=== PATIENT | female | born 1955 | race Caucasian/White ===

== ENCOUNTER 2022-11-02 16:00 | Outpatient (REF) | payer MEDICARE, OTHER, SELFPAY ==
[2022-11-02 19:59] LABS: ALT 33 U/L (14-59); AST 28 U/L (15-37); Alkaline Phosphatase 65 U/L (46-116); Anion Gap 6.2 mmol/L (3-11); BUN 17 mg/dL (7-18); Bilirubin, Total 0.7 mg/dL (0.2-1.0); CO2 29.8 mmol/L (21.0-32.0); Calcium 9.3 mg/dL (8.5-10.1); Chloride 106 mmol/L (98-107); Estimated GFR 61.75 (mL/min/1.73m2); Glucose 91 mg/dL (74-106); Potassium 4.1 mmol/L (3.5-5.1); Sodium 142 mmol/L (136-145); Total Protein 7.4 g/dL (6.4-8.2)
== END 2022-11-02 16:01 | disposition home or self-care (01) ==
LOC: NCHCN 16:00
PROVIDERS: Visit Provider Nurse Practitioner Family
DX: I48.91 Unspecified atrial fibrillation (principal)
CPT/HCPCS: 80053

== ENCOUNTER 2023-10-28 15:12 | Outpatient (REF) | payer MEDICARE, OTHER, SELFPAY ==
[2023-10-28 19:37] LABS: Vitamin D 25 Total 76.8 ng/mL (30-100)
== END 2023-10-28 15:13 | disposition home or self-care (01) ==
LOC: NCHCN 15:12
PROVIDERS: Visit Provider Physician Assistant
DX: E55.9 Vitamin D deficiency, unspecified (principal)
CPT/HCPCS: 82306

== ENCOUNTER → 2024-01-20 09:38 | Outpatient (BNVA) | payer MEDICARE, OTHER, SELFPAY | PROVIDERS: PCP Physician Assistant; Referring Provider Physician Assistant; Visit Provider Student in an Organized Health Care Education/Training Program | DX: M17.11 Unilateral primary osteoarthritis, right knee (principal) | CPT/HCPCS: 99203 ==

== ENCOUNTER 2024-04-26 10:55 | Outpatient (REF) | payer MEDICARE, OTHER, SELFPAY ==
--- OUTSIDE RECORDS SUMMARY | 2024-04-26 11:13 | XMS_ITS ---
Author Organization Unknown ALLERGIES AND ADVERSE REACTIONS No information ASSESSMENT No information CHIEF COMPLAINT No information MEDICATIONS No information OBJECTIVE DATA No information PHYSICAL EXAMINATION No information TREATMENT PLAN Planned Care Start Date Provider Encounter for Check-up [id number] PROBLEMS No information RESULTS No information REVIEW OF SYSTEMS No information SUBJECTIVE DATA No information VITAL SIGNS No information
--- OUTSIDE RECORDS SUMMARY | 2024-04-26 11:13 | XMS_ITS | Continuity of Care Document ---
Author Organization [facility] Address [address] [place] [address] Care Team Providers Care Podiatric Aide Name Role Phone Haley Leyva Primary Care Physician Encounter [facility]_[place] Date(s): 12/29/22 - 12/29/[address] [address] Discharge Disposition: Home or Self Care Attending Physician: Haley Leyva PENCILLER Admitting Physician: Haley Leyva PENCILLER Referring Physician: Haley Leyva PENCILLER Assessment and Plan Future Appointments Medications Eliquis 5 mg oral tablet 5 mg = 1 tab, Oral, BID, # 90 tab, 11 Refill(s), [facility]acy: [facility] Start Date: 09/04/22 Status: Ordered Eliquis 5 mg oral tablet 5 mg = 1 tab, Oral, BID, # 60 tab, 11 Refill(s), Pharmacy: [facility] Start Date: 09/03/22 Status: Ordered metoprolol succinate 50 mg oral capsule, extended release 50 mg = 1 cap, Oral, BID, # 60 cap, 11 Refill(s), Pharmacy: [id number] Start Date: 09/03/22 Status: Ordered metoprolol succinate 50 mg oral tablet, extended release 50 mg = 1 tab, Oral, BID, # 180 tab, 11 Refill(s), Pharmacy: [facility] ) Start Date: 09/04/22 Status: Ordered Problem List Condition Confirmation Course Effective Dates Status H ealth Status Informant Hallux valgus, acquired Confirmed Active Fibrillation, atrial Confirmed Active Atrial septal defect Confirmed Active Chronic ulcer of ankle, left, limited to breakdown of skin Confirmed Active Endometriosis Confirmed Active Osteoarthritis Confirmed Active Osteopenia Confirmed Active Tachycardia, paroxysmal Confirmed Active Screening for breast cancer Confirmed Active Screening for colon cancer Confirmed Active 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 Sex Female Patient Care team information Care Team Personnel Name: Sinshara Haley H PENCILLER Position: PowerChart View Only Member Role: Primary Care Physician Address: Address: [address] [place] [id number] [place] [address]
--- OUTSIDE RECORDS SUMMARY | 2024-04-26 11:13 | XMS_ITS | Continuity of Care Document ---
Author Organization [facility] Address [address] [place] [address] Care Team Providers Care Removable Prosthodontist Name Role Phone Haley Leyva Primary Care Physician [phone] Encounter [facility]CT[facility]_[place] Date(s): 01/05/24 - 01/05/[address] [address] Discharge Disposition: Home or Self Care Attending Physician: Tarsha Tay APRN Admitting Physician: Tarsha Tay APRN Referring Physician: Tarsha Tay APRN Allergies, Adverse Reactions, Alerts Substance Criticality Severity Reaction Reaction Severity Status morphine High criticality Moderate Abdominal pain Active Medications Eliquis 5 mg oral tablet 5 mg = 1 tab, Oral, BID, # 90 tab, 11 Refill(s), Pharmacy: [facility], 172.72, cm, 08/13/23 12:44:00 EDT, Height, 69.55, kg, 08/13/23 12:52:00 EDT, Weight Dosing Start Date: 09/08/23 Status: Ordered metoprolol succinate 50 mg oral tablet, extended release 50 mg = 1 tab, Oral, BID, # 180 tab, 11 Refill(s), Pharmacy: [facility], 172.72, cm, 08/13/23 12:44:00 EDT, Height, 69.55, kg, 08/13/23 12:52:00 EDT, Weight Dosing Start Date: 4/24/24 Status: Ordered Problem List Condition Confirmation Course [...] Confirmed Active Vitamin D deficiency Confirmed Active Procedures Procedure Date Related Diagnosis Body Site Status Colonoscopy 1 02/28/23 Completed Cholecystectomy 12/21/16 Completed Atrial septation operation 09/17/76 Completed Arthroscopic chondroplasty o f knee joint Completed Cardiac catheterization C ompleted Cataract surgery Complete d Colonoscopy Completed Endometrial ablation Comp leted Ganglionectomy of tendon she ath of wrist Completed Tonsillectomy Completed Varicose vein stripping C ompleted 89 yr cb Social History Social History Type Response Tobacco Never tobacco user T obacco Use:. Sex Female Sex Representation Female (finding) Pulmonary function study * Event Display: Pulmonary Function Studies Please click on link to view image. * Liz Mendoza MD: PERFORM Event Display: Pulmonary Function Studies Authored Date: Good patient effort 2020 ATS/ERS interpretation guidelines used Spirometry: Shows no evidence of obstructive airways disease, no bronchodilator testing was carriedout Lung volumes: Not measured Diffusion capacity: Normal Airways resistance: Not measured Impression: No evidence of obstructive airways disease. Cannot comment on underlying restriction without lung volume measurements/plethysmography. Therefore clinical correlation recommended Electronically Signed on 01/05/2024 17:02 EDT Liz Mendoza MD Patient Care team information Care Team Personnel Name: Haley Leyva ASSISTANT TO THE CEO Position: PowerChart View Only Member Role: Informed Provider Address: [address] [place] [address] Care Team Related Persons Name: SASKIA GUSTAFSON Name: ISABEL GUSTAFSON Insurance Providers Guarantor name: NI Health Plan Information #: 2 Payer: MICHAEL RODRIGUEZ Member Number: [id number] Policy Number: NA Health Plan Information #: 1 Payer: [employer] MEDICARE REPLACEMENTADVANTAGE HMO Member Number: [id number] Policy Number: NA
--- OUTSIDE RECORDS SUMMARY | 2024-04-26 11:13 | XMS_ITS | Continuity of Care Document ---
Author Organization [facility] Address [address] [place] [address] Encounter NCTY_[place] Date(s): 08/11/22 - 08/11/22 [facility] [address] [place] [address] us
--- OUTSIDE RECORDS SUMMARY | 2024-04-26 11:13 | XMS_ITS | Continuity of Care Document ---
Author Organization [facility] Address [address] [place] [address] Care Team Providers Care Molded Goods Controls Operator Name Role Phone Haley Leyva Primary Care Physician [phone] Encounter NCTY_[place] Date(s): 05/03/23 - 05/03/23 [facility] [address] [place] [address] [place] Encounter Diagnosis Atrial fibrillation(Discharge Diagnosis) - 05/03/23 Discharge Disposition: Home or Self Care Attending Physician: Bernabe Spencer MD Allergies, Adverse Reactions, Alerts Substance Reaction Severity Status morphine Abdominal pain Moderate Active Assessment and Plan Future Appointments Medications Eliquis 5 mg oral tablet 5 mg = 1 tab, Oral, BID, # 90 tab, 11 Refill(s), Pharmacy: [facility] ) Start Date: 09/04/22 Status: Ordered Eliquis 5 mg oral tablet 5 mg = 1 tab, Oral, BID, # 60 tab, 11 Refill(s), Pharmacy: [id number] Start Date: 09/03/22 Status: Ordered flecainide 100 mg oral tablet 100 mg = 1 tab, Oral, every 12 hr, # 180 tab, 4 Refill(s), Pharmacy: [facility], 172.72, cm, 04/07/23 10:23:00 EST, Height, 66.25, kg, 04/07/23 10:29:00 EST, Weight Dosing Start Date: 04/07/23 Status: Ordered metoprolol succinate 50 mg oral capsule, extended release 50 mg = 1 cap, Oral, BID, # 60 cap, 11 Refill(s), Pharmacy: [facility] Start Date: 09/03/22 Status: Ordered metoprolol succinate 50 mg oral tablet, extended release 50 mg = 1 tab, Oral, BID, # 180 tab, 11 Refill(s), Pharmacy: [facility] ([facility] ) Start Date: 09/04/22 Status: [...] vein stripping C ompleted 110 yr cb Vital Signs Most recent to oldest [Reference Range]: 1 Peripheral Pulse Rate [60-100 bpm] 93 bp m (05/03/23 2:20 PM) Blood Pressure [90-140/60-90 mmHg] 133/7 0mmHg (05/03/23 2:20 PM) Mean Arterial Pressure, Cuff [70-110 mmH g] 91 mmHg (05/03/23 2:20 PM) Weight 65.85 kg (05/03/23 2:20 PM) Weight Measured (lbs) 145.174 lb (05/03/23 2:20 PM) Weight Dosing 65.850 kg (05/03/23 2:20 PM) Height 172.72 cm (05/03/23 2:20 PM) Height/Length Measured (inches) 68 inch (05/03/23 2:20 PM) BSA Measured 1.78 m2 (05/03/23 2:20 PM) Body Mass Index 22.07 kg/m2 (05/03/23 2:20 PM) Social History Social History Type Response Tobacco Never tobacco user T obacco Use:. Sex Female Patient Care team information Care Team Personnel Name: Haley Leyva RIVER CROSSING SUPERVISOR Position: PowerChart View Only Member Role: Informed Provider Address: Address: [address] [place] [phone]- Care Team Related Persons Name: SASKIA GUSTAFSON Address: Home [address] [facility] [phone] Name: ISABEL GUSTAFSON
--- OUTSIDE RECORDS SUMMARY | 2024-04-26 11:13 | XMS_ITS | Continuity of Care Document ---
Author Organization [facility] Address [address] [place] [address] Care Team Providers Care Insolvency Practitioner Name Role Phone Haley Leyva Primary Care Physician [phone] Encounter [facility]_[place] Date(s): 11/27/22 - 11/27/[address] [address] Discharge Disposition: Home or Self Care Attending Physician: Haley Leyva DOUGHNUT MACHINE OPERATOR Admitting Physician: Haley Leyva DOUGHNUT MACHINE OPERATOR Referring Physician: Haley Leyva DOUGHNUT MACHINE OPERATOR Assessment and Plan Future Appointments Medications Eliquis 5 mg oral tablet 5 mg = 1 tab, Oral, BID, # 90 tab, 11 Refill(s), [facility] Start Date: 09/04/22 Status: Ordered Eliquis 5 mg oral tablet 5 mg = 1 tab, Oral, BID, # 60 tab, 11 Refill(s), [facility] Start Date: 09/03/22 Status: Ordered metoprolol succinate 50 mg oral capsule, extended release 50 mg = 1 cap, Oral, BID, # 60 cap, 11 Refill(s), [facility] Start Date: 09/03/22 Status: Ordered metoprolol succinate 50 mg oral tablet, extended release 50 mg = 1 tab, Oral, BID, # 180 tab, 11 Refill(s), Pharm[facility]: [facility] Start Date: 09/04/22 Status: Ordered Social History Social History Type Response Tobacco Never tobacco user T obacco Use:. Sex Female Patient Care team information Care Team Personnel Name: Chute, Haley H DOUGHNUT MACHINE OPERATOR Position: PowerChart View Only Member Role: Primary Care Physician Address: Address: [address] [place] [address] [place]
--- OUTSIDE RECORDS SUMMARY | 2024-04-26 11:13 | XMS_ITS | Continuity of Care Document ---
Author Organization [facility] Address [address] [place] [address] Care Team Providers Care Music Arranger Name Role Phone Haley Leyva Primary Care Physician Encounter NCTY_[place] Date(s): 05/20/23 - 05/20/23 [facility] [address] [place] [address] [place] Encounter Diagnosis Tachycardia(Discharge Diagnosis) - 05/20/23 Atrial fibrillation(Discharge Diagnosis) - 05/20/23 Discharge Disposition: Home or Self Care Attending Physician: Bernabe Spencer MD Allergies, Adverse Reactions, Alerts Substance Reaction Severity Status morphine Abdominal pain Moderate Active Assessment and Plan Future Appointments Medications Eliquis 5 mg oral tablet 5 mg = 1 tab, Oral, BID, # 90 tab, 11 Refill(s), [facility]: [facility] ) Start Date: 09/04/22 Status: Ordered Eliquis 5 mg oral tablet 5 mg = 1 tab, Oral, BID, # 60 tab, 11 Refill(s), Pharmacy: [facility] Start Date: 09/03/22 Status: Ordered flecainide 100 [...] BID, # 60 cap, 11 Refill(s), Pharmacy: [facility] Start Date: 09/03/22 Status: Ordered metoprolol succinate 50 mg oral tablet, extended release 50 mg = 1 tab, Oral, BID, # 180 tab, 11 Refill(s), [facility]: [facility] ([facility] ) Start Date: 09/04/22 Status: [...] Range]: 1 Peripheral Pulse Rate [60-100 bpm] 77 bp m (05/20/23 1:44 PM) Blood Pressure [90-140/60-90 mmHg] 134/6 4mmHg (05/20/23 1:44 PM) Mean Arterial Pressure, Cuff [70-110 mmH g] 87 mmHg (05/20/23 1:44 PM) Weight 66.40 kg (05/20/23 1:44 PM) Weight Measured (lbs) 146.387 lb (05/20/23 1:44 PM) Weight Dosing 66.400 kg (05/20/23 1:44 PM) Height 172.72 cm (05/20/23 1:44 PM) Height/Length Measured (inches) 68 inch (05/20/23 1:44 PM) BSA Measured 1.78 m2 (05/20/23 1:44 PM) Body Mass Index 22.26 kg/m2 (05/20/23 1:44 PM) Social History Social History Type Response Tobacco Never tobacco user T obacco Use:. Sex Female Physician Outpatient Note * Bernabe Spencer MD: PERFORM Event Display: Office Clinic Note Physician Authored Date: [id number] ALLIE GUSTAFSON :1955 Age:67 years Sex:Female Visit Date:05/20/2023 Primary Care Physician: Haley Leyva NP History of Present Illness Cardiac Problems: 1. Paroxysmal A-Fib 2. Mild to moderate mitral regurgitation on echocardiogram 2021 3. Edema 4. SOB 5. Status post??ASD repair in 1974 6.??Status post repair of??varicose veins ?? This is a 67 year old woman who I last saw in March 2023, as her AF was becoming more persistent. She is on flecainide, and she underwent cardioversion on 05/04/23. ?? She has noted no change in symptoms, and it turns out she is back in atrial fibrillation. ??Rate iswell-controlled. ??She has no chest pain, orthopnea, PND, palpitations, syncope, dyspnea exertion, or lower extremity edema. ?? Our next step is either to try a different antiarrhythmic (I think your sotalol would be a good choice),??or to talk about ablation.?? I reviewed with her that science continues to accumulate that ablation??should be considered earlier rather than later in the decision-making process, so I am goingto go ahead and make a referral to [facility].?? Were also having a significant amount of difficultyarranging for??inpatient visits for antiarrhythmics, so if she does need sotalol, it would be very likely to be done more quickly at [facility] than it would here. ?? She has never been to [facility] before.?? She understands that a number of visits may be involved.?? There does seem to be a significant advantage??for us to be pushing for sinus rhythm rather than leaving people in A-fib,??even with good rate control. ??This is a change in philosophy over the past 10 years or so as evidence has accumulated. Review of Systems A complete review of systems is negative other than as noted in the history of present illness. Physical Exam Vitals & Measurements HR:??77??(Peripheral)?? BP:??134/64?? SpO2:??97%?? HT:??172.72??cm?? WT:??66.40??kg?? BMI:??22.26?? BSA:??1.78?? HEENT: Normocephalic, atraumatic Respirations: Clear to auscultation bilaterally with no wheezes rubs or rhonchi Cardiac: Irregularly irregular, normal S1, S2, no murmurs gallops or rubs Abdomen: Nontender nondistended normal active bowel sounds Extremities: 2+ dorsalis pedis pulses bilaterally with no significant edema Medical Decision Making Data Reviewed: EK09/03/22. Atrial fibrillation...V-rate?? 56- 90, irreg A-activity. Probable anteroseptal infarct, old...Q >30mS & abn ST-T, V1-V2 Echo: 11/27/21. LVEF 59%, AFib throughout the study with controlled ventricular rates. Severe LA enlargement. Mid to moderate mitral regurgitation. Mild tricuspid regurgitation. Stress: 03/2020. LVEF 64%. PVCs and ventricular couplets noted during infusion. Small sized, mild intensity, reversible perfusion defect involving the apical inferior wall. Low risk study basted on defect size and normal LV function.?? Cardio Note: 11/2021:??When she saw Dr. Pineda last, she reported she was feeling overall, well. Rare palpitations. She noted sometimes of fatigue and SOB, but when she is walking or doing heavy work. At that visit, she requested to go back on Eliquis. Also, at that visit an EKG was done and it showed she was in AFib rate of 75bpm. He discussed with her the possibility proceeding with a cardioversion or staying in AFib. Since she is feeling well and has been in AFib paroxysmal in the past, they deferred cardioversion, assuming that she will continue to go in and out of rhythm. He ordered anecho, and if results are stable, he recommended to follow up in 1 year. Stress Echo: 02/23/23. ??She exercised for 7 minutes and 10 seconds, achieving 107% of maximal addicted heart rate of 176 bpm with 10.1 METS. ??There were no significant EKG changes,??and the??associated cardiogram was reassuring; normal stress echo. ??EF of 65% with normal wall motion. Diastolic indices are technically indeterminate. Left atrium is severely dilated. Right atrium is mildly dilated. Moderate MR. Moderate TR. PAP est 27 mmHg. EK04/07/2023: Atrial fibrillation with ventricular rate 79 bpm. ??Axes and intervals within normal limits. ??No evidence of ischemia or prior infarct. 05/04/2023: Electrical cardioversion: Successful hindu of sinus rhythm after??cardioversion x2. EKG: May 20, 2023:??Atrial fibrillation with ventricular rate 70 bpm. ??Axes and intervals within normal limits. ??There is slightly delayed R wave progression. ??No other evidence of ischemia or prior infarct. ?? 67-year-old woman??with paroxysmal A-fib, which has recurred on flecainide after cardioversion. ?? Atrial fibrillation:??This is not particularly??symptomatic, which gives us a lot of options.?? I did review with her??that the evidence is getting more and more clear that hindu of sinus rhythm, particularly with??ablation,??has the best long-term outcomes, so I am referring her to [facility] this point.?? If an additional antiarrhythmic trial is recommended, she might be better off having that done in [place], as we have had difficulty arranging for these??admissions here in [place]. ?? She should remain on??Eliquis. ??I also left her on flecainide. ??I am checking??a 14-day Zio patchto see if she is spending any time in sinus rhythm on the flecainide; if not,??we can simply stop that while she awaits an electrophysiology evaluation. ?? It is always a genuine pleasure to see Allie. ??I am glad to see that she is doing well.?? I will bring her back here in 3 months, which I suspect will be after??she has been seen by [facility]. ??She knows to call me??if she is not contacted by [facility] in the next few weeks. Clinic Assessment/Plan Atrial fibrillation??I48.91 Actions: FUTURE - EVENT MONITORING PHYSICIAN, 05/20/23, Other, Please Specify, 14 days, Order for future visit, Tachycardia Atrial fibrillation COMPLETED - Follow-Up Appointment Request N[facility], 05/20/23 14:00:00 EST, In [facility], 05/20/23 14:00:00 EST FUTURE - Follow-Up Appointment Request NCTY, *Est. 08/19/23 +/- 21 days, Future Order, In [facility] COMPLETED - Referral Management, Medical Service: Cardiology, Reason: EP for consideration ofablation (pulm vein isolation) vs tikosyn, Start: 05/20/23 ?? Tachycardia??R00.0 Actions: COMPLETED - [id number] Office/Outpatient Visit - Established Patient, Level 4 (30-39 min)., 05/20/23 13:41:00 EST, Tachycardia COMPLETED - CV ECG Clinic, 05/20/23 13:44:00 EST, Routine, Reason: Other (please specify), Stop date and time 05/20/23 13:44:00 EST, Tachycardia, ORD_SET_REQ_DT_RANGE, Iza's Internal Person Id FUTURE - EVENT MONITORING PHYSICIAN, 05/20/23, Other, Please Specify, 14 days, Order for future visit, Tachycardia Atrial fibrillation FUTURE - Follow-Up Appointment Request NCTY, *Est. 08/19/23 +/- 21 days, Future Order, In [facility] COMPLETED - Referral Management, Medical Service: Cardiology, Reason: EP for consideration ofablation (pulm vein isolation) vs tikosyn, Start: 05/20/23 ?? 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 Vitamin D deficiency Historical No qualifying data Procedure/Surgical History ???Colonoscopy (03/01/2023)???Cholecystectomy (12/22/2016)???Atrial septation operation (09/18/1976)???Arthroscopic chondroplasty of knee joint???Cardiac catheterization???Cataract surgery???Colonoscopy???Endometrial ablation???Ganglionectomy of tendon sheath of wrist???Tonsillectomy???Varicose vein stripping Medications What How Much When Why Instructions Unchanged apixaban (Eliquis 5 mg oral tablet) 1 tab Oral (given by mouth) 2 times a day Unchanged apixaban (Eliquis 5 mg oral tablet) 1 tab Oral (given by mouth) 2 times a day Unchanged flecainide (flecainide 100 mg oral tablet) 1 tab Oral (given by mouth) Every 12 hours Atrial fibrillation Unchanged metoprolol (metoprolol succinate 50 mg oral capsule, extended release) 1 Capsules Oral (given by mouth) 2 times a day Unchanged metoprolol (metoprolol succinate 50 mg oral tablet, extended release) 1 tab Oral (given by mouth) 2 times a day Allergies morphine??(Abdominal pain) Social History Alcohol Never Electronic Cigarette/Vaping Electronic Cigarette Use: Never. Substance Use Never Tobacco Never tobacco user Tobacco Use:. Family History Stroke: Father. Electronically Signed on 05/20/23 02:16 PM Bernabe Spencer MD Patient Care team information Care Team Personnel Name: Haley Leyva METHODS EXAMINER Position: PowerChart View Only Member Role: Informed Provider Address: Address: [address] [place] [id number] [place] Care Team Related Persons Name: SASKIA GUSTAFSON Address: Home [address] [facility] [phone] Name: ISABEL GUSTAFSON
--- OUTSIDE RECORDS SUMMARY | 2024-04-26 11:13 | XMS_ITS | Continuity of Care Document ---
Author Organization [facility] Address [address] [place] [address] Care Team Providers Care Electro Mechanic Name Role Phone Haley Leyva Primary Care Physician [phone] Encounter [facility] [id number] Date(s): 12/21/23 - 12/21/[address] [address] Discharge Disposition: Home or Self Care Attending Physician: Nidia Blanco PA-C Admitting Physician: Nidia Blanco PA-C Referring Physician: Nidia Blanco PA-C Allergies, Adverse Reactions, Alerts Substance Reaction Severity Status morphine Abdominal pain Moderate Active Medications Eliquis 5 mg oral tablet [...] Weight Dosing Start Date: 09/08/23 Status: Ordered Problem List Condition Confirmation Course [...] information Care Team Personnel Name: Haley Leyva CLIENT TECHNOLOGIES SPECIALIST Position: PowerChart View Only Member Role: Informed Provider Address: Address: [address] [place] [address] Care Team Related Persons Name: SASKIA GUSTAFSON Address: Home [address] [facility] [phone] Name: ISABEL GUSTAFSON
--- OUTSIDE RECORDS SUMMARY | 2024-04-26 11:13 | XMS_ITS | Continuity of Care Document ---
Author Organization [facility] Address [address] [place] [address] Care Team Providers Care Basting Puller Name Role Phone Haley Leyva Primary Care Physician Encounter [facility] Date(s): 10/28/23 - 10/28/23 [facility] [address] [place] [address] Discharge Disposition: Home or Self Care Attending Physician: Haley Leyva WAFER MOUNTER Admitting Physician: Haley Leyva WAFER MOUNTER Referring Physician: Haley Leyva WAFER MOUNTER Allergies, Adverse Reactions, Alerts Substance Reaction Severity [...] information Care Team Personnel Name: Haley Leyva WAFER MOUNTER Position: PowerChart View Only Member Role: Informed Provider Address: Address: [address] [place] [id number] [place] Care Team Related Persons Name: SASKIA GUSTAFSON Address: Home [address] [place] [address] [facility] [id number] Name: ISABEL GUSTAFSON Address: Home
--- OUTSIDE RECORDS SUMMARY | 2024-04-26 11:13 | XMS_ITS | Continuity of Care Document ---
Author Organization [facility] Address [address] [place] [address] Care Team Providers Care Doctor Of Dental Medicine Name Role Phone Haley Leyva Primary Care Physician Encounter [facility] [id number] Date(s): 11/01/23 - 11/01/23 [facility] [address] [place] [address] Discharge Disposition: Home Allergies, Adverse Reactions, Alerts Substance Reaction Severity [...] information Care Team Personnel Name: Haley Leyva MOTTLER OPERATOR Position: PowerChart View Only Member Role: Informed Provider Address: Address: [address] [place] [address]- Care Team Related Persons Name: SASKIA GUSTAFSON Address: Home [address] [facility] [phone] Name: ISABEL GUSTAFSON
--- OUTSIDE RECORDS SUMMARY | 2024-04-26 11:13 | XMS_ITS | Continuity of Care Document ---
Author Organization [facility] Address [address] [place] [address] Care Team Providers Care Radio Installer Automobile Name Role Phone Haley Leyva Primary Care Physician [phone] Encounter [facility] Date(s): 12/28/22 - 12/28/22 [facility] [address] [place] [address] [place] Encounter Diagnosis Afib(Discharge Diagnosis) - 12/28/22 Discharge Disposition: Home or Self Care Attending Physician: Bernabe Spencer MD Assessment and Plan Future Appointments Medications Eliquis 5 mg oral tablet 5 mg = 1 tab, Oral, BID, # 90 tab, 11 Refill(s), Pharmacy: [facility] ) Start Date: 09/04/22 Status: Ordered Eliquis 5 mg oral tablet 5 mg = 1 tab, Oral, BID, # 60 tab, 11 Refill(s), [id number] Start Date: 09/03/22 Status: Ordered metoprolol succinate 50 mg oral capsule, extended release 50 mg = 1 cap, Oral, BID, # 60 cap, 11 Refill(s), Pharmacy: [id number] Start Date: 09/03/22 Status: Ordered metoprolol succinate 50 mg oral tablet, extended release 50 mg = 1 tab, Oral, BID, # 180 tab, 11 Refill(s), Pharmacy: [facility] ) Start Date: 09/04/22 Status: [...] Confirmed Active Vitamin D deficiency Confirmed Active Vital Signs Most recent to oldest [Reference Range]: 1 Peripheral Pulse Rate [60-100 bpm] 76 bp m (12/28/22 8:45 AM) Blood Pressure [90-140/60-90 mmHg] 122/7 5mmHg (12/28/22 8:45 AM) Weight 64.15 kg (12/28/22 8:45 AM) Weight Measured (lbs) 141.426 lb (12/28/22 8:45 AM) Social History Social History Type Response Tobacco Never tobacco user T obacco Use:. Sex Female Physician Outpatient Note * Bernabe Spencer MD: PERFORM Event Display: Office Clinic Note Physician Authored Date: [id number] JANAYALLIE :1955 Age:67 years Sex:Female Visit Date:12/28/2022 Primary Care Physician: Haley Leyva NP History of Present Illness Cardiac Problems: 1. Paroxysmal A-Fib 2. Mild to moderate mitral regurgitation on echocardiogram 2021 3. Edema 4. SOB 5. Status post??ASD repair in 1974 6.??Status post repair of??varicose veins ?? Is a 67-year-old woman??last saw Dr. Vázquez here??a few months ago. ??She has a history of an ASDrepair; her mitral regurgitation has been followed, as well as her paroxysmal atrial fibrillation. ?? She was following with a Dr. 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 She now lives near family. ?? A cardioversion was planned last year but ended up being unnecessary as she converted back to sinus.?? My guess at this point is that she spending more more time in A-fib. ??She is finding that she is fatigued and gets more dyspneic, which??used to be only intermittent, but now seems more regular.?? She gives me the example walking [id number] to her mailbox (which is about 100 m away)??and she will be huffing and puffing. ??She does not need to stop, but this is a change since last year.?? There is no chest pain, there is no syncope, there is no lower extremity edema.?? Occasionally she feels fluttering, maybe once??every month or 2, but for the most part is not feeling palpitations on m etoprolol. ?? Is quite active around the house but is not getting exercise beyond that. ?? Her last echo was reassuring about a year ago, her last stress test was largely reassuring about3 years ago with a small inferior apical defect??that was not felt to be clinically relevant. Review of Systems A complete review of systems is negative other than as noted in the history of present illness. Physical Exam Vitals & Measurements HR:??76??(Peripheral)?? BP:??122/75?? SpO2:??98%?? WT:??64.15??kg?? HEENT: Normocephalic, atraumatic Respirations: Clear to auscultation [...] function.?? Cardio Note: 11/2021:??When she saw Dr. Edwin campos, she reported she was feeling overall, well. Rare palpitations. She noted sometimes of fatigue and SOB, but when she is walking or doing heavy work. At that visit, she requested to go back on [employer]. Also, at that visit an EKG was [...] recommended to follow up in 1 year. EK12/28/2022: Atrial fibrillation with ventricular rate 60 bpm. ??Axes intervals within normal limits. ??There is delayed R wave progression, diffuse T wave flattening, and perhaps??some ST depressions in the lateral leads. ?? 67-year-old woman with??atrial fibrillation ?? Atrial fibrillation:??This has been paroxysmal, and she did convert??spontaneously prior to her last cardioversion,??but based on her description of??more chronic symptoms, I suspect she is moving towards a persistent atrial fibrillation,??if not there already.?? I reviewed with her that??our understanding of A-fib has changed significantly since the??AFFIRM trial. ??Initially we felt that rate control was adequate,??but we are now learning that rhythm control??earlier than later,??is absolutely to the advantage??of patients in terms of??quality of life, and perhaps even mortality. ?? I would love to get her on flecainide, but her last stress test was a bit??indeterminate a few years ago. ??Her echo was reassuring a year ago,??but I would like to repeat a stress test.?? She did not like??the chemical stress??but is agreeable to a treadmill and we will arrange that for her.?? We will arrange this as a stress echo??given the baseline EKG abnormalities with??particularly ST??depressions in the lateral leads at her baseline. ?? We will get back together in a couple of months??to review that stress test to make a plan going forward. ??I would hope for that to include??flecainide, but that would depend on the results of her stress test. ?? No other changes at this point. ??She is appropriately anticoagulated on Eliquis. ??It was a genuine pleasure to meet Allie. Clinic Assessment/Plan Afib??I48.91 Actions: COMPLETED - 56416 Office/Outpatient Visit - Established Patient, Level 4 (30-39 min)., 12/28/22 8:38:00 EDT, Afib COMPLETED - CV ECG Clinic, 12/28/22 8:42:00 EDT, Routine, Reason: Other (please specify), Stop dateand time 12/28/22 8:42:00 EDT, Afib, ORD_SET_REQ_DT_RANGE, Felanell's Internal Person Id FUTURE - Echocardiogram Stress, 12/28/22, Order for future visit, Afib CARMONA (dyspnea on exertion) FUTURE - Follow-Up Appointment Request [facility], *Est. 02/22/23 +/- 14 days, Future Order, In Approximately, [facility] ?? 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 Tobacco Never tobacco user Tobacco Use:. Family History Stroke: Father. Electronically Signed on 12/28/22 09:38 AM Bernabe Spencer MD Patient Care team information Care Team Personnel Name: Haley Leyva SYSTEMS LEAD Position: PowerChart View Only Member Role: Primary Care Physician Address: Address: [address] [place] [address]
--- OUTSIDE RECORDS SUMMARY | 2024-04-26 11:13 | XMS_ITS | Continuity of Care Document ---
Author Organization [facility] Address [address] [place] [address] Care Team Providers Care Oil And Gas Specialist Name Role Phone Haley Leyva Primary Care Physician [phone] Encounter [facility] Date(s): 04/30/23 - 04/30/[address] [address] Discharge Disposition: Home or Self Care Attending Physician: Nidia Blanco PA-C Admitting Physician: Nidia Blanco PA-C Referring Physician: Nidia Blanco PA-C Allergies, Adverse Reactions, Alerts Substance Reaction Severity Status morphine Abdominal pain Moderate Active Assessment and Plan Future Appointments Medications Eliquis 5 mg oral tablet 5 mg = 1 tab, Oral, BID, # 90 tab, 11 Refill(s), Pharmacy: [facility] ) Start Date: 09/04/22 Status: Ordered Eliquis 5 mg oral tablet 5 mg = 1 tab, Oral, BID, # 60 tab, 11 Refill(s), Pharmacy: [id number] Start Date: 09/03/22 Status: Ordered [...] BID, # 60 cap, 11 Refill(s), Pharmacy: [id number] Start Date: 09/03/22 Status: Ordered metoprolol succinate 50 mg oral tablet, extended release 50 mg = 1 tab, Oral, BID, # 180 tab, 11 Refill(s), [facility] Start Date: 09/04/22 Status: [...] vein stripping C ompleted 110 yr cb Results Laboratory List Name Date Comprehensive Metabolic Panel 04/30/23 Hemoglobin A1c 04/30/23 Lipid Panel 04/30/23 Most recent to oldest [Reference Range]: 1 BUN [7-18 mg/dL] 17 mg/dL (04/30/23 7:40 AM) Cholesterol Total [50-200 mg/dL] 172 mg/ dL (04/30/23 7:40 AM) LDL [0-130 mg/dL] 96 mg/dL (04/30/23 7:40 AM) Glucose Level [74-106 mg/dL] 98 mg/dL (04/30/23 7:40 AM) Potassium Level [3.5-5.1 mmol/L] 4.2 mmo l/L (04/30/23 7:40 AM) HDL [40-60 mg/dL] 69 mg/dL *HI* (04/30/23 7:40 AM) AST [15-37 unit/L] 31 unit/L (04/30/23 7:40 AM) ALT [14-59 unit/L] 50 unit/L (04/30/23 7:40 AM) Sodium Level [136-145 mmol/L] 140 mmol/L (04/30/23 7:40 AM) Triglycerides [0-150 mg/dL] 36 mg/dL (04/30/23 7:40 AM) Calcium Level [8.5-10.1 mg/dL] 9.0 mg/dL (04/30/23 7:40 AM) Albumin Level [3.4-5.0 g/dL] 3.4 g/dL (04/30/23 7:40 AM) Protein Total [6.4-8.2 g/dL] 6.7 g/dL (04/30/23 7:40 AM) Bilirubin Total [0.2-1.0 mg/dL] 1.0 mg/d L (04/30/23 7:40 AM) Alk Phos [46-146 unit/L] 62 unit/L (04/30/23 7:40 AM) CO2 [21-32 mmol/L] 33 mmol/L *HI* (04/30/23 7:40 AM) eGFR Non-AA [>=60] 65 (04/30/23 7:40 AM) eGFR AA [>=60] 65 (04/30/23 7:40 AM) Hemoglobin A1c [4.0-6.0 %] 5.4 % (04/30/23 7:40 AM) Chloride Level [98-107 mmol/L] 103 mmol/ L (04/30/23 7:40 AM) Creatinine Level [0.55-1.02 mg/dL] 0.95 mg/dL (04/30/23 7:40 AM) Social History Social History Type Response Tobacco Never tobacco user T obacco Use:. Sex Female Patient Care team information Care Team Personnel Name: Haley Leyva CUSTOM SKI MAKER Position: PowerChart View Only Member Role: Informed Provider Address: Address: [address] [place] [address]- Care Team Related Persons Name: SASKIA GUSTAFSON Address: Home [address] [facility] [id number] Name: ISABEL GUSTAFSON
--- OUTSIDE RECORDS SUMMARY | 2024-04-26 11:13 | XMS_ITS | Continuity of Care Document ---
Author Organization [facility] Address [address] [place] [address] Care Team Providers Care Air Intelligence Officer Name Role Phone Haley Leyva Primary Care Physician [phone] Encounter [facility] Date(s): 12/28/22 - 12/28/22 [facility] [address] [place] [address] Discharge Disposition: Home Assessment and Plan Future Appointments Medications Eliquis 5 mg oral tablet 5 mg = 1 tab, Oral, BID, # 90 tab, 11 Refill(s), Pharmacy: [facility] ) Start Date: 09/04/22 Status: Ordered Eliquis 5 mg oral tablet 5 mg = 1 tab, Oral, BID, # 60 tab, 11 Refill(s), Pharmacy: [id number] Start Date: 09/03/22 Status: Ordered metoprolol succinate 50 mg oral capsule, extended release 50 mg = 1 cap, Oral, BID, # 60 cap, 11 Refill(s), Pharmacy: [id number] Start Date: 09/03/22 Status: Ordered metoprolol succinate 50 mg oral tablet, extended release 50 mg = 1 tab, Oral, BID, # 180 tab, 11 Refill(s), Pharmacy: [facility] Start Date: 09/04/22 Status: [...] information Care Team Personnel Name: Haley Leyva PET WALKER Position: PowerChart View Only Member Role: Primary Care Physician Address: Address: [address] [place] [id number] [place]
--- OUTSIDE RECORDS SUMMARY | 2024-04-26 11:13 | XMS_ITS | Continuity of Care Document ---
Author Organization [facility] Address [address] [place] [address] Care Team Providers Care Lease Operator Name Role Phone Haley Leyva Primary Care Physician Encounter [facility] Date(s): 08/13/23 - 08/13/23 [facility] [address] [place] [address] [place] Encounter Diagnosis Atrial septal defect(Discharge Diagnosis) - 08/11/23 Paroxysmal A-fib(Discharge Diagnosis) - 08/13/23 Shortness of breath(Discharge Diagnosis) - 08/13/23 Discharge Disposition: Home or Self Care Attending Physician: Bernabe Spencer MD Allergies, Adverse Reactions, Alerts Substance Reaction Severity Status morphine Abdominal pain Moderate Active Assessment and Plan Extracted from: Title:Cardiology Office Visit Author:St juan f Spencer MD Date:08/13/23 Atrial septal defect??Q21.10 Actions: COMPLETED - CV ECG Clinic, 08/13/23 12:43:00 EDT, Routine, Reason: Other (please specify), Stop date and time 08/13/23 12:43:00 EDT, Atrial septal defect Paroxysmal A-fib Shortness of breath, ORD_SET_REQ_DT_RANGE, Felaner's Internal Person Id ?? Paroxysmal A-fib??I48.0 Actions: COMPLETED - 39766 Office/Outpatient Visit - Established Patient, Level 3 (20-29 min)., 08/13/23 12:39:00 EDT, Paroxysmal A-fib COMPLETED - CV ECG Clinic, 08/13/23 12:43:00 EDT, Routine, Reason: Other (please specify), Stop date and time 08/13/23 12:43:00 EDT, Atrial septal defect Paroxysmal A-fib Shortness of breath, ORD_SET_REQ_DT_RANGE, Cerner's Internal Person Id FUTURE - Follow-Up Appointment Request RICKEY, *Est. 11/13/23 +/- 21 days, Future Order, In [facility], [facility] COMPLETED - Referral Management, Medical Service: Cardiology, Reason: Please re-refer to EP for consideration of pulm vein isolation for AF - they never contacted her 3 months ago with initial referral., Start: 08/13/23 ?? Shortness of breath??R06.02 Actions: COMPLETED - CV ECG Clinic, 08/13/23 12:43:00 EDT, Routine, Reason: Other (please specify), Stop date and time 08/13/23 12:43:00 EDT, Atrial septal defect Paroxysmal A-fib Shortness of breath, ORD_SET_REQ_DT_RANGE, Iza's Internal Person Id ?? Additional Actions: DISCONTINUED - flecainide, 100 mg = 1 tab, Oral, every 12 hr, # 180 tab, 4 Refill(s), Pharmacy: [facility], 172.72, cm, 04/07/23 10:23:00 EST, Height, 66.25, kg, 04/07/23 10:29:00 EST, Weight Dosing COMPLETED - Follow-Up Appointment Request RICKEY, 08/13/23 13:00:00 EDT, In [facility], [facility], 08/13/23 13:00:00 EDT Medications Eliquis 5 mg oral tablet 5 mg = 1 tab, Oral, BID, # 90 tab, 11 Refill(s), Pharmacy: [facility] ([facility] ) Start Date: 09/04/22 Status: Ordered Eliquis 5 mg oral tablet 5 mg = 1 tab, Oral, BID, # 60 tab, 11 Refill(s), Pharmacy: [id number] Start Date: 09/03/22 Status: Ordered metoprolol succinate 50 mg oral capsule, extended release 50 mg = 1 cap, Oral, BID, # 60 cap, 11 Refill(s), Pharmacy: [id number] Start Date: 09/03/22 Status: Ordered metoprolol succinate 50 mg oral tablet, extended release 50 mg = 1 tab, Oral, BID, # 180 tab, 11 Refill(s), Pharmacy: [facility] ([facility] ) Start Date: 09/04/22 Status: [...] Range]: 1 Peripheral Pulse Rate [60-100 bpm] 108 b pm *HI* (08/13/23 12:44 PM) Blood Pressure [90-140/60-90 mmHg] 137/7 8mmHg (08/13/23 12:44 PM) Mean Arterial Pressure, Cuff [65-140 mmH g] 98 mmHg (08/13/23 12:44 PM) Weight 69.55 kg (08/13/23 12:44 PM) Weight Measured (lbs) 153.331 lb (08/13/23 12:44 PM) Weight Dosing 69.550 kg (08/13/23 12:44 PM) Height 172.72 cm (08/13/23 12:44 PM) Height/Length Measured (inches) 68 inch (08/13/23 12:44 PM) BSA Measured 1.83 m2 (08/13/23 12:44 PM) Body Mass Index 23.31 kg/m2 (08/13/23 12:44 PM) Social History Social History Type Response Tobacco Never tobacco user T obacco Use:. Sex Female Physician Outpatient Note * Bernabe Spencer MD: PERFORM Event Display: Office Clinic Note Physician Authored Date: [id number] ALLIE GUSTAFSON :1955 Age:67 years Sex:Female Visit Date:08/13/2023 Primary Care Physician: Haley Leyva NP History of Present Illness Cardiac Problems: 1. Paroxysmal A-Fib 2. Mild to moderate mitral regurgitation on echocardiogram 2021 3. Edema 4. SOB 5. Status post??ASD repair in 1974 6.??Status post repair of??varicose veins ?? This is a 67 year old woman who I last saw on 05/20/23. She had no change in her symptoms but it was noted that she was back in atrial fibrillation at that visit. I referred her to see EP to discuss other options in regards to her atrial fibrillation.?? I had asked her to call if she was not contacted by [facility] within a week or 2; it sounds like they never called her,??but we were not??notified of this. ?? A Zio patch in the interim showed continuous A-fib over 14 days.?? I am re- referring to [facility].?? She remains largely asymptomatic; there is no chest pain, orthopnea, PND, palpitations, syncope, dyspnea exertion, or lower extremity edema.?? She is looking forward to being able to walk outside once the ground firms up a little bit. Review of Systems A complete review of systems is negative other than as noted in the history of present illness. Physical Exam Vitals & Measurements HR:??108??(Peripheral)?? BP:??137/78?? SpO2:??98%?? HT:??172.72??cm?? WT:??69.55??kg?? BMI:??23.31?? BSA:??1.83?? HEENT: Normocephalic, atraumatic Respirations: Clear to auscultation bilaterally with no wheezes rubs or rhonchi Cardiac: Regular rate and rhythm normal S1, S2, no murmurs gallops or [...] or prior infarct. 05/04/2023: Electrical cardioversion: Successful church of sinus rhythm after??cardioversion x2. EKG: May 20, 2023:??Atrial fibrillation with ventricular rate 70 bpm. ??Axes and intervals within normal limits. ??There is slightly delayed R wave progression. ??No other evidence of ischemia or prior infarct. Zio: 05/24/23. 14 days. Continious AF with rare PVCs over a 13 day period. Rate ranged from 61 to 120bpm. The QRS eidened at faster heart rates, a common finding consistent with rate related bundle. ?? EK08/13/2023: Atrial fibrillation with ventricular rate 88 bpm. ??Axes and intervals are within normal limits.?? No evidence of ischemia or prior infarct. ?? 67-year-old woman withatrial fibrillation. ?? Atrial fibrillation:??She is minimally symptomatic. ??She did have sinus rhythm after cardioversion??but even with flecainide we were unable to maintain that.?? We talked about the benefits of??restoring sinus rhythm;??the next step would be either to consider??admission for an antiarrhythmic such as sotalol or Tikosyn ,or pulmonary vein isolation (atrial fibrillation ablation).?? Either of these options would need to be performed at [facility]; should we will hopefully be evaluated by electrophysiology soon??to get her moving in one direction or the other. ?? We made a referral to [facility] 3 months ago, and she is here to follow that up;??she has never been contacted by [facility], so we will rerefer, and once again bring her back here in 3 months. ?? No other changes at this point. ??I am stopping flecainide; she can complete the current prescription that she just filled, but there is no need to refill that.??I have asked her once again to call me if she does not hear from [facility] in the near future. ?? Shee understands that when she comes back she will be with a different blanket winder helper. ??It has been a genuine pleasure working with??Allie. Clinic Assessment/Plan Atrial septal defect??Q21.10 Actions: COMPLETED - CV ECG Clinic, 08/13/23 12:43:00 EDT, Routine, Reason: Other (please specify), Stop date and time 08/13/23 12:43:00 EDT, Atrial septal defect Paroxysmal A-fib Shortness of breath, ORD_SET_REQ_DT_RANGE, Iza's Internal Person Id ?? Paroxysmal A-fib??I48.0 Actions: COMPLETED - 90299 Office/Outpatient Visit - Established Patient, Level 3 (20-29 min)., 08/13/23 12:39:00 EDT, Paroxysmal A-fib COMPLETED - CV ECG Clinic, 08/13/23 12:43:00 EDT, Routine, Reason: Other (please specify), Stop date and time 08/13/23 12:43:00 EDT, Atrial septal defect Paroxysmal A-fib Shortness of breath, ORD_SET_REQ_DT_RANGE, Cerner's Internal Person Id FUTURE - Follow-Up Appointment Request RICKEY, *Est. 11/13/23 +/- 21 days, Future Order, In [facility], [facility] COMPLETED - Referral Management, Medical Service: Cardiology, Reason: Please re-refer to EP for consideration of pulm vein isolation for AF - they never contacted her 3 months ago with initial referral., Start: 08/13/23 ?? Shortness of breath??R06.02 Actions: COMPLETED - CV ECG Clinic, 08/13/23 12:43:00 EDT, Routine, Reason: Other (please specify), Stop date and time 08/13/23 12:43:00 EDT, Atrial septal defect Paroxysmal A-fib Shortness of breath, ORD_SET_REQ_DT_RANGE, Cerner's Internal Person Id ?? Additional Actions: DISCONTINUED - flecainide, 100 mg = 1 tab, Oral, every 12 hr, # 180 tab, 4 Refill(s), Pharmacy: [facility], 172.72, cm, 04/07/23 10:23:00 EST, Height, 66.25, kg, 04/07/23 10:29:00 EST, Weight Dosing COMPLETED - Follow-Up Appointment Request RICKEY, 08/13/23 13:00:00 EDT, In Approximately, [facility], 08/13/23 13:00:00 EDT Problem List/Past Medical History Ongoing Atrial septal [...] vein stripping Medications What How Much When Instructions Unchanged [...] (given by mouth) 2 times a day ?? What How Much When Why Comments Stop Taking flecainide (flecainide 100 mg oral tablet) 1 tab Oral (given by mouth) Every 12 hours Atrial fibrillation Allergies morphine??(Abdominal pain) Social History Alcohol Never Electronic Cigarette/Vaping Electronic Cigarette Use: Never. Substance Use Never Tobacco Never tobacco user Tobacco Use:. Family History Stroke: Father. Electronically Signed on 08/13/23 01:21 PM Bernabe Spencer MD Patient Care team information Care Team Personnel Name: Haley Leyva SEED CORN MANAGER PRODUCTION Position: PowerChart View Only Member Role: Informed Provider Address: Address: [address] [place] [id number] [place] [address] Care Team Related Persons Name: SASKIA GUSTAFSON Address: Home [address] [facility] [facility] [phone] Name: ISABEL GUSTAFSON
--- OUTSIDE RECORDS SUMMARY | 2024-04-26 11:13 | XMS_ITS | Continuity of Care Document ---
Author Organization [facility] Address [address] [place] [address] Care Team Providers Care Fundraising Sale Representative Name Role Phone Haley Leyva Primary Care Physician Encounter [facility] [id number] Date(s): 05/04/23 - 05/04/23 [facility] [address] [place] [address] Encounter Diagnosis Paroxysmal atrial fibrillation(Final) - Atrial septal defect, unspecified(Final) - Discharge Disposition: Home or Self Care Attending Physician: Bernabe Spencer MD Admitting Physician: Bernabe Spencer MD Referring Physician: Beranbe Spencer MD Allergies, Adverse Reactions, Alerts Substance Reaction Severity Status morphine Abdominal pain Moderate Active Assessment and Plan Future Appointments Functional Status 05/04/23 Family Member Travel History No recent t ravel Recent Travel History No recent travel Other exposure to Infectious Disease Non e Medications Eliquis 5 mg oral tablet 5 mg = 1 tab, Oral, BID, # 90 tab, 11 Refill(s), [facility]acy: [facility] ([facility] ) Start Date: 09/04/22 Status: Ordered Eliquis 5 mg oral tablet 5 mg = 1 tab, Oral, BID, # 60 tab, 11 Refill(s), Pharmacy: [id number] Start Date: 09/03/22 Status: Ordered flecainide 100 [...] BID, # 60 cap, 11 Refill(s), Pharmacy: [id number] Start Date: 09/03/22 Status: Ordered metoprolol succinate 50 mg oral tablet, extended release 50 mg = 1 tab, Oral, BID, # 180 tab, 11 Refill(s), [facility]acy: [facility] ([facility] ) Start Date: 09/04/22 Status: [...] Most recent to oldest [Reference Range]: 1 2 3 Temperature Temporal Artery [36-38 Deg C] 36.1 Deg C (05/04/23 1:04 PM) 35.8 Deg C *LOW* (05/04/23 1:04 PM) 36.0 Deg C (05/04/23 12:30 PM) Temperature Temporal Artery (DegF) [97.3-100 Deg F] 96.98 Deg F *LOW* (05/04/23 1:04 PM) 96.44 Deg F *LOW* (05/04/23 1:04 PM) 96.98 Deg F *LOW* (05/04/23 12:17 PM) Peripheral Pulse Rate [60-100 bpm] 48 bpm *LOW* (05/04/23 1:04 PM) 47 bpm *LOW* (05/04/23 1:04 PM) 50 bpm *LOW* (05/04/23 1:00 PM) Heart Rate Monitored [60-100 bpm] 46 bpm *LOW* (05/04/23 1:04 PM) 49 bpm *LOW* (05/04/23 1:04 PM) 48 bpm *LOW* (05/04/23 1:00 PM) Respiratory Rate [12-24 br/min] 13 br/min (05/04/23 1:04 PM) 13 br/min (05/04/23 1:04 PM) 15 br/min (05/04/23 1:00 PM) Blood Pressure [90-140/60-90 mmHg] 108/75mmHg (05/04/23 1:04 PM) 108/75mmHg (05/04/23 1:04 PM) 110/65mmHg (05/04/23 1:00 PM) Mean Arterial Pressure, Cuff [70-110 mmHg] 86 mmHg (05/04/23 1:04 PM) 86 mmHg (05/04/23 1:04 PM) 80 mmHg (05/04/23 1:00 PM) Mean Arterial Pressure Cuff 89 mmHg (05/04/23 10:47 AM) Blood Pressure Invasive [90-140/60-90 mmHg] 94/66mmHg (05/04/23 12:17 PM) 121/77mmHg (05/04/23 11:49 AM) Mean Arterial Pressure, Invasive [65-140 mmHg] 75 mmHg (05/04/23 12:17 PM) 75 mmHg (05/04/23 12:13 PM) Blood Pressure Location Right arm (05/04/23 10:47 AM) Social History Social History Type Response Tobacco Never tobacco user T obacco Use:. Sex Female Hospital Discharge Instructions Patient Education 04/13/2023 09:45:39 Pre Electrical Cardioversion Patient Instructions (NCCLAMPRON) Pre Electrical Cardioversion Instructions Electrical cardioversion is the delivery of a jolt of electricity to restore a normal rhythm to theheart. A rhythm that is too fast or is not regular keeps the heart from pumping well. In this procedure, sticky patches or metal paddles are placed on the chest to deliver electricity to the heart from a device. Tell a health care provider about: ? Any allergies you have. ? All medicines you are taking, including vitamins, herbs, eye drops, creams, and ezru-bmp-byskrlz medicines. ? Any problems you or family members have had with anesthetic medicines. ? Any medical conditions you have. ? Whether you are or may be . What are the risks? Generally, this is a safe procedure. However, problems may occur, including: ? Allergic reactions to medicines. ? A blood clot that breaks free and travels to other parts of your body. ? The possible return of an abnormal heart rhythm within hours or days after the procedure. ? Your heart stopping (cardiac arrest). This is rare. Prior to the procedure: ? Follow instructions from your health care provider about eating or drinking restrictions. ? Plan to have someone take you home from the hospital or clinic. ? If you will be going home right after the procedure, plan to have someone with you for 24 hours. ? Ask your health care provider what steps will be taken to help prevent infection. Thesemay include washing your skin with a germ-killing soap. What can I expect after the procedure? Your blood pressure, heart rate, breathing rate, and blood oxygen level will be monitored until you leave the hospital or clinic. ? Your heart rhythm will be watched to make sure it does not change. ? You may have some redness on the skin where the shocks were given. Follow these instructions at home: ? Do not drive for 24 hours if you were given a sedative during your procedure. ? Take fbhs-afb-pvfejko and prescription medicines only as told by your health care provider. ? Keep all follow-up visits as told by your health care provider. This is important. Get help if: ? You have discomfort in your chest. ? You are dizzy or you feel faint. ? You have trouble breathing or you are short of breath. ? Your speech is slurred. ? You have trouble moving an arm or leg on one side of your body. ? Your fingers or toes turn cold or blue. Summary ? Electrical cardioversion is the delivery of a jolt of electricity to restore a normal rhythm to the heart. ? Generally, this is a safe procedure. This information is not intended to replace advice given to you by your health care provider. Make sure you discuss any questions you have with your health care provider. Document Revised: 12/04/2019 Document Reviewed: 12/04/2019 Elsevier Patient Education ?? 2021 [employer] Discharge instructions * Danitza Rodriguez: PERFORM Event Display: Discharge Instructions Authored Date: [id number] JANAYDEMIAN :1955 Age:67 years Sex:Female Visit Date:05/04/2023 Primary Care Physician: Haley Leyva NP Hospital Discharge Instructions We would like to thank you for allowing us to assist you with your healthcare needs. The following includes patient education materials and information regarding your injury/illness. Your Next Steps Scheduled Future Appointments 2023 2:00 PM EST ?? With: Bernabe Spencer MD Where: [facility] [place] [address] [place] [address] Status: Confirmed Your Summary Your Care Team Admitting Physician - Bernabe Spencer MD Attending Physician - Bernabe Spencer MD Primary Care Physician - Haley Leyva NP Referring Physician - Bernabe Spencer MD Discharge Vitals Temperature??(Temporal Artery) 96.8 ??F (36.0 ??C) Heart Rate??(Peripheral) 51 Heart Rate??(Monitored) 49 Respiratory Rate?? 17 Blood Pressure?? 105/69?? Blood Pressure?? 94/66(Line)?? Blood Pressure?? 133/71(Sitting)?? Education Materials Pre Electrical Cardioversion Instructions Electrical cardioversion is the delivery of a jolt of electricity to restore a normal rhythm to theheart. A rhythm that is too fast or is not regular keeps the heart from pumping well. In this procedure, sticky patches or metal paddles are placed on the chest to deliver electricity to the heart from a device. ? Tell a health care provider about: ? Any allergies you have. ? All medicines you are taking, including vitamins, herbs, eye drops, creams, and ewqm-npy-mauwayh medicines. ? Any problems you or family members have had with anesthetic medicines. ? Any medical conditions you have. ? Whether you are or may be . What are the risks? Generally, this is a safe procedure. However, problems may occur, including: ? Allergic reactions to medicines. ? A blood clot that breaks free and travels to other parts of your body. ? The possible return of an abnormal heart rhythm within hours or days after the procedure. ? Your heart stopping (cardiac arrest). This is rare. Prior to the procedure: ? Follow instructions from your health care provider about eating or drinking restrictions. ? Plan to have someone take you home from the hospital or clinic. ? If you will be going home right after the procedure, plan to have someone with you for 24 hours. ? Ask your health care provider what steps will be taken to help prevent infection. Thesemay include washing your skin with a germ-killing soap. ? What can I expect after the procedure? Your blood pressure, heart rate, breathing rate, and blood oxygen level will be monitored until you leave the hospital or clinic. ? Your heart rhythm will be watched to make sure it does not change. ? You may have some redness on the skin where the shocks were given. Follow these instructions at home: ? Do not drive for 24 hours if you were given a sedative during your procedure. ? Take mmkk-tge-mdwrmqs and prescription medicines only as told by your health care provider. ? Keep all follow-up visits as told by your health care provider. This is important. Get help if: ? You have discomfort in your chest. ? You are dizzy or you feel faint. ? You have trouble breathing or you are short of breath. ? Your speech is slurred. ? You have trouble moving an arm or leg on one side of your body. ? Your fingers or toes turn cold or blue. Summary ? Electrical cardioversion is the delivery of a jolt of electricity to restore a normal rhythm to the heart. ? Generally, this is a safe procedure. This information is not intended to replace advice given to you by your health care provider. Make sure you discuss any questions you have with your health care provider. Document Revised: 12/04/2019 Document Reviewed: 12/04/2019 [employer] Patient Education ?? 2021 [employer]. Patient/Restaurant Associate Signature Patient Name:DEMIAN GUSTAFSON Shukri I have received this information and my questions have been answered. Patient/Restaurant Associate Name: Patient/Restaurant Associate Signature: Relationship to Patient: Witness Name/Signature: Date: Electronically Signed on: 05/04/2023 12:50 ESTSigned by:PAF History and physical note * Sri Escobar: PERFORM Event Display: History and Physical Authored Date: [id number] DEMIAN GUSTAFSON :1955 Age:67 years Sex:Female Primary Care Physician: Haley Leyva STAFF THERAPIST * Final Report * DEMIAN GUSTAFSON :?1955 Age:??67 years Sex:??Female Visit Date:??04/07/2023 Primary Care Physician: ??Haley Leyva NP History of Present Illness ?? Cardiac Problems: 1. Paroxysmal A-Fib 2. Mild to moderate mitral regurgitation on echocardiogram 2021 3. Edema 4. SOB 5. Status post??ASD repair in 1974 6.??Status post repair of??varicose veins ?? This is a 67 year old woman who I last saw in clinic back in December. She has paroxysmal atrial fibrillation, but based on her symptoms she reported to me at her visit, I suspected that she is moving towards a persistent atrial fibrillation. I arranged for her to complete?? a stress echo we can start her on flecainide.?? She is here today to discuss results which were reassuring. ??She has a normal echo and normal stress echo at this point. ?? She continues to feel well;??there is no chest pain, orthopnea, PND, palpitations, syncope, dyspneaon??exertion,??or lower extremity edema (she does note some mild lower extremity edema which she has had for years which is unchanged). ?? She is not exercising much; she??chases around her 3-year-old grandson and has 2 dogs??and cats that she is??working with and is up and down the stairs at her house regularly??but she is limited in her ability to walk by??foot pain. ?? We talked about the??CAST trial??in generic terms. ??She is an excellent candidate for flecainide. ??Will arrange for cardioversion and we will check an EKG the day before??scheduled cardioversion. Review of Systems ?? A complete review of systems is negative other than as noted in the history of present illness. Physical Exam ?Vitals & Measurements ?HR:??81??(Peripheral)?? BP:??127/61?? SpO2:??97%?HT:??172.72??cm?? WT:??66.25??kg?? BMI:??22.21?? BSA:??1.78? HEENT: Normocephalic, atraumatic Respirations: Clear to auscultation bilaterally with no wheezes rubs or rhonchi Cardiac:??Regular rate and rhythm??normal S1, S2, no murmurs gallops or rubs Abdomen: Nontender nondistended normal active bowel sounds Extremities: 2+ dorsalis pedis pulses bilaterally with no significant edema Medical Decision Making ?? Data Reviewed: EK09/03/22. Atrial fibrillation...V-rate?? 56- 90, [...] ??No evidence of ischemia or prior infarct. ?? 67-year-old woman with atrial fibrillation. ?? Atrial fibrillation:??She has paroxysmal disease but??it has??become??much more??persistent at thatpoint.?? She did convert??prior to her last cardioversion spontaneously, but that seems less and less likely at this point. ??I am starting flecainide based on her normal stress test and normal echoca rdiogram. ??We did discuss the CAST trial in general terms.?? Rate is well- controlled, she is asymptomatic, she is appropriately anticoagulated. No other changes at this point. ?? I will plan to see her back here couple of weeks after the cardioversion we can make a plan going forward at that point.?? No other changes currently. ??It??is always a genuine??pleasure to see Demian, and I am glad to see she is doing well. Clinic Assessment/Plan Atrial fibrillation??I48.91 ?Actions: ORDERED - flecainide, 100 mg = 1 tab, Oral, every 12 hr, # 180 tab, 4 Refill(s), Pharmacy: [facility], 172.72, cm, 04/07/23 10:23:00 EST, Height, 66.25, kg, 04/07/23 10:29:00 EST, Weight Dosing COMPLETED - [address] Office/Outpatient Visit - Established Patient, Level 3 (20-29 min)., 04/07/23 10:06:00 EST, Atrial fibrillation COMPLETED - CV ECG Clinic, 04/07/23 10:22:00 EST, Routine, Reason: Other (please specify), Stop date and time 04/07/23 10:22:00 EST, Atrial fibrillation, ORD_SET_REQ_DT_RANGE, Iza's Internal Person Id FUTURE - Follow-Up Appointment Request [facility], *Est. 05/19/23 +/- 7 days, Future Order, In [facility] COMPLETED - Follow-Up Appointment Request [facility], 04/07/23 10:40:00 EST, In [facility], 04/07/23 10:40:00 EST COMPLETED - Referral Management, Medical Service: Cardiology, Reason: Needs cardioversion in 2 or 4 weeks, Start: 04/07/23 ?? 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 Medications ??What How Much When Why Instructions??New flecainide (flecainide 100 mg oral tablet) 1 tab ??Oral (given by mouth) Every 12 hours ?Atrial fibrillation ?? Refills: 4 ?Pickup at [facility] ?Unchanged apixaban (Eliquis 5 mg oral tablet) 1 tab ??Oral (given by mouth) 2 times a day ?Unchanged apixaban (Eliquis 5 mg oral tablet) 1 tab ??Oral (given by mouth) 2 times a day ?Unchanged metoprolol (metoprolol succinate 50 mg oral capsule, extended release) 1 Capsules ??Oral (given by mouth) 2 times a day ?Unchanged metoprolol (metoprolol succinate 50 mg oral tablet, extended release) 1 tab ??Oral (given by mouth) 2 times a day ? Pharmacy Information ?[facility]: [address] [place], [place] [id number] [phone] Allergies morphine??(Abdominal pain) Social History Alcohol ??Never Electronic Cigarette/Vaping ??Electronic Cigarette Use: Never. Tobacco ??Never tobacco user Tobacco Use:. Family History ??Stroke: Father. ? [1] Ambulatory Visit Instructions We would like to thank you for allowing us to assist you with your healthcare needs. The following includes patient education materials and information regarding your injury/illness. Medications What How Much When Why Instructions [...] (given by mouth) 2 times a day Your Summary Problems Ongoing - Any problem that you are currently receiving treatment for. 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 Vitamin D deficiency Your Care Team Admitting Physician - Bernabe Spencer MD Attending Physician - Bernabe Spencer MD Primary Care Physician - Haley Leyva STAFF THERAPIST Allergies morphine??(Abdominal pain) [1]??Cardiology Office Visit; Bernabe Spencer MD 04/07/2023 11:00 EST Electronically Signed on 04/12/23 04:03 PM Sri Escobar Reviewed by: Bernabe Spencer MD Patient Care team information Care Team Personnel Name: Haley Leyva STAFF THERAPIST Position: PowerChart View Only Member Role: Informed Provider Address: Address: [address] [place] [id number] [place] Care Team Related Persons Name: SASKIA GUSTAFSON Address: Home [address] [facility] [address] [id number] Name: ISABEL GUSTAFSON
--- OUTSIDE RECORDS SUMMARY | 2024-04-26 11:13 | XMS_ITS | Continuity of Care Document ---
Author Organization [facility] Address [address] [place] [address] Care Team Providers Care Senior Tax Accountant Name Role Phone Haley Leyva Primary Care Physician [phone] Encounter [facility] Date(s): 05/20/23 - 05/20/23 [facility] [address] [place] [address] Discharge Disposition: Home Allergies, Adverse Reactions, Alerts Substance Reaction Severity Status morphine Abdominal pain Moderate Active Assessment and Plan Future Appointments Medications Eliquis 5 mg oral tablet 5 mg = 1 tab, Oral, BID, # 90 tab, 11 Refill(s), Pharmacy: [facility] Start Date: 09/04/22 Status: Ordered Eliquis 5 mg oral tablet 5 mg = 1 tab, Oral, BID, # 60 tab, 11 Refill(s), Pharmacy: [id number] Start Date: 09/03/22 Status: Ordered flecainide 100 [...] BID, # 60 cap, 11 Refill(s), Pharmacy: [id number] Start Date: 09/03/22 Status: Ordered [...] information Care Team Personnel Name: Haley Leyva CABIN CREW Position: PowerChart View Only Member Role: Informed Provider Address: Address: [address] [place] [address] Care Team Related Persons Name: SASKIA GUSTAFSON Address: Home [address] [facility], [id number] Name: ISABEL GUSTAFSON
--- OUTSIDE RECORDS SUMMARY | 2024-04-26 11:13 | XMS_ITS | Continuity of Care Document ---
Author Organization [facility] Address [address] [place] [address] Care Team Providers Care Drug Abuse Technician Name Role Phone Mainor Anne Primary Care Physician [phone] Encounter [facility] Date(s): 09/03/22 - 09/03/22 [facility] [address] [place] [address] [place] Encounter Diagnosis Paroxysmal A-fib(Discharge Diagnosis) - 09/03/22 Valvular heart disease(Discharge Diagnosis) - 09/03/22 Paroxysmal atrial fibrillation(Final) - Endocarditis, valve unspecified(Final) - Discharge Disposition: Home or Self Care Attending Physician: Tia Vázquez DO Functional Status 09/03/22 Other exposure to Infectious Disease Non e Medications Eliquis 5 mg oral tablet 5 mg = 1 tab, Oral, BID, # 180 tab, 3 Refill(s), Pharmacy: [facility] Start Date: 09/03/22 Status: Ordered Eliquis 5 mg oral tablet 5 mg = 1 tab, Oral, BID, # 60 tab, 11 Refill(s), [facility]acy: [facility] Start Date: 09/03/22 Status: Ordered metoprolol succinate 50 mg oral capsule, extended release 50 mg = 1 cap, Oral, BID, # 60 cap, 11 Refill(s), [id number] Start Date: 09/03/22 Status: Ordered metoprolol succinate 50 mg oral tablet, extended release 50 mg = 1 tab, Oral, BID, # 180 tab, 3 Refill(s), Pharmacy: [facility] Start Date: 09/03/22 Status: Ordered Vital Signs Most recent to oldest [Reference Range]: 1 Weight 65.8 kg (09/03/22 10:26 AM) Weight Measured (lbs) 145.064 lb (09/03/22 10:26 AM) Social History Social History Type Response Tobacco Never tobacco user T obacco Use:. Sex Female Physician Outpatient Note * Tia Vázquez DO: PERFORM, MODIFY Event Display: Office Clinic Note Physician Authored Date: [id number] DEMIAN GUSTAFSON :1955 Age:66 years Sex:Female Visit Date:09/03/2022 Primary Care Physician: Mainor Anne MD Chief Complaint Here to establish care History of Present Illness Patient is just moved here from [place].?? Old records should have been sent but I am not seeing them.?? Patient has a history of a open heart valve surgery of some sort but she says the valves have been monitored with echocardiograms and her last one was about a year ago.?? We?? need the recordsto follow up on this.?? Refilled medicines for patient locally and to??mail order pharmacy as she is worried she will run out soon. ? EKG:?? AFIB rate 72 Review of Systems Constitutional:?No??fevers,?No??chills,?No??sweats Eye:?No??recent visual problems ENT:?No??ear pain,?No??nasal congestion,?No??sore throat Respiratory:?No??shortness of breath,?No??cough Cardiovascular:?No??Chest pain,?No??palpitations,?No??syncope Gastrointestinal:?Nonausea,?No??vomiting,?No??diarrhea Genitourinary:?No??hematuria Mitch/Lymph:?No??bruising tendency,?No??swollen lymph glands Endocrine:?No??excessive thirst,??No??excessive hunger Musculoskeletal:??No??back pain,??No??neck pain,??No??joint pain,??No??muscle pain,??No??decreased range of motion Integumentary:?No??rash,?No??pruritus,?No??abrasions Neurologic: Alert & oriented X 4 Psychiatric:?No??anxiety,?No??depression Physical Exam Vitals & Measurements WT:??65.8??kg?? General: Alert and oriented, well nourished,?No??acute distress Eye: PERRL, EOMI,?Normal?conjunctiva HENT: Normocephalic, clear tympanic membranes,?Normal? hearing, moist oral mucosa,?No??scleral icterus,?No??sinus tenderness Neck: Supple, non-tender,?No??carotid bruits,?No??JVD,?No??lymphadenopathy Lungs:??Clear to auscultation?? Respiration:??Non-Labored Heart:?Normal? rate,?Regular??rhythm,?No??murmur,?No??gallop,?No??edema Breast:?No??lumps,?No??bumps,?No??scars,?Normal? nipples Abdomen: Soft, non-tender, non-distended,?Normal? bowel sounds,?No??masses Musculoskeletal:?Normal? range of motion and strength,?No??tenderness,?No??swelling Skin: Skin is warm, dry and pink,?No??rashes,?No??lesions Neurologic: Awake, alert and oriented X4, CN II-XII intact Psychiatric: Cooperative, appropriate mood and affect Assessment/Plan 1.??Valvular heart disease??I38 1. continue present medicines Ordered: Follow-Up Appointment Request [facility], *Est. 09/04/23 +/- 28 days, Future Order, In [facility] ?? Paroxysmal A-fib??I48.0 1. continue present medicines 2. refilled medicines 3. follow up with cardiology in 1 year or sooner if needed Ordered: CV ECG Clinic, 09/03/22 10:26:00 EDT, Routine, Reason: Other (please specify), Stop date and time 09/03/22 10:26:00 EDT, Paroxysmal A-fib, ORD_SET_REQ_DT_RANGE, Iza's Internal Person Id Follow-Up Appointment Request [facility], *Est. 09/04/23 +/- 28 days, Future Order, In Approximately, [facility] ?? Orders: Eliquis 5 mg oral tablet, 5 mg = 1 tab, Oral, BID, # 60 tab, 11 Refill(s), Pharmacy: [id number] Eliquis 5 mg oral tablet, 5 mg = 1 tab, Oral, BID, # 180 tab, 3 Refill(s), Pharmacy: [facility] metoprolol succinate 50 mg oral capsule, extended release, 50 mg = 1 cap, Oral, BID, # 60 cap, 11 Refill(s), Pharmacy: [facility]156 metoprolol succinate 50 mg oral tablet, extended release, 50 mg = 1 tab, Oral, BID, # 180 tab, 3 Refill(s), Pharmacy: [facility] Problem List/Past Medical History Ongoing No qualifying data Historical No qualifying data Medications Eliquis 5 mg oral tablet, 5 mg= 1 tab, Oral, BID, 3 refills Eliquis 5 mg oral tablet, 5 mg= 1 tab, Oral, BID, 11 refills metoprolol succinate 50 mg oral capsule, extended release, 50 mg= 1 cap, Oral, BID, 11 refills metoprolol succinate 50 mg oral tablet, extended release, 50 mg= 1 tab, Oral, BID, 3 refills Allergies No active allergies Social History Electronic Cigarette/Vaping Electronic Cigarette Use: Never. Tobacco Never tobacco user Tobacco Use:. Family History Stroke: Father. Electronically Signed on 09/03/22 11:23 AM Tia Vázquez DO Electronically Signed on 09/03/22 11:32 AM Tia Vázquez DO Patient Care team information Care Team Personnel Name: Mainor Anne MD Position: Physician Member Role: Primary Care Physician Address: Address: [address] [place] [id number]
--- OUTSIDE RECORDS SUMMARY | 2024-04-26 11:13 | XMS_ITS | Continuity of Care Document ---
Author Organization [facility] Address [address] [place] [address] Care Team Providers Care Medical Science Liaison Name Role Phone Jana Leyvaide Bishop Primary Care Physician [phone] Encounter [facility] Date(s): 04/07/23 - 04/07/23 [facility] [address] [place] [address] Discharge Disposition: Home Allergies, Adverse Reactions, Alerts Substance Reaction Severity Status morphine Abdominal pain Moderate Active Medications Eliquis 5 mg oral tablet 5 mg = 1 tab, Oral, BID, # 90 tab, 11 Refill(s), Pharmacy: [facility] ) Start Date: 09/04/22 Status: Ordered Eliquis 5 mg oral tablet 5 mg = 1 tab, Oral, BID, # 60 tab, 11 Refill(s), Pharmacy: [facility] 4[facility] Start Date: 09/03/22 Status: Ordered flecainide 100 mg oral tablet 100 mg = 1 tab, Oral, every 12 hr, # 180 tab, 4 Refill(s), Pharmacy: [facility], 172.72, cm, 04/07/23 10:23:00 EST, Height, 66.25, kg, 04/07/23 10:29:00 EST, Weight Dosing Start Date: 04/07/23 Status: Ordered metoprolol succinate 50 mg oral capsule, extended release 50 mg = 1 cap, Oral, BID, # 60 cap, 11 Refill(s), Pharmacy: [facility]156 Start Date: 09/03/22 Status: Ordered metoprolol succinate 50 mg oral tablet, extended release 50 mg = 1 tab, Oral, BID, # 180 tab, 11 Refill(s), Pharmacy: [facility] ([facility] ) Start [...] information Care Team Personnel Name: Haley Leyva ELECTRICAL TEST TECHNICIAN Position: PowerChart View Only Member Role: Primary Care Physician Address: Address: [address] [place] [id number] [place] Care Team Related Persons Name: SASKIA GUSTAFSON Address: Home [address] [facility] [address] [id number]
--- OUTSIDE RECORDS SUMMARY | 2024-04-26 11:13 | XMS_ITS | Continuity of Care Document ---
Author Organization [facility] Address [address] [place] [address] Care Team Providers Care Gunstock Repairer Name Role Phone SinJana olmedoide Bishop Primary Care Physician Encounter [facility] Date(s): 03/01/23 - 03/01/[address] [address] [place] Encounter Diagnosis Screening for colon cancer(Discharge Diagnosis) - 03/01/23 Diverticulosis of colon(Discharge Diagnosis) - 03/01/23 Discharge Disposition: Home or Self Care Attending Physician: Adalberto Graham MD Admitting Physician: Adalberto Graham MD Referring Physician: Adalberto Graham MD Allergies, Adverse Reactions, Alerts Substance Reaction Severity Status morphine Abdominal pain Moderate Active Assessment and Plan Future Appointments Functional Status 03/01/23 ADLs Independent 02/23/23 Living Situation Home with family car e Recent Travel History No recent travel Medications Eliquis 5 mg oral tablet 5 mg = 1 tab, Oral, BID, # 90 tab, 11 Refill(s), [facility]acy: [facility] ) Start Date: 09/04/22 Status: Ordered Eliquis 5 mg oral tablet 5 mg = 1 tab, Oral, BID, # 60 tab, 11 Refill(s), Pharmacy: [facility] 30[facility] Start Date: 09/03/22 Status: Ordered metoprolol succinate 50 mg oral capsule, extended release 50 mg = 1 cap, Oral, BID, # 60 cap, 11 Refill(s), Pharmacy: [facility] 4150 Start Date: 09/03/22 Status: Ordered metoprolol succinate 50 mg oral tablet, extended release 50 mg = 1 tab, Oral, BID, # 180 tab, 11 Refill(s), Pharm[facility]: [facility] ([facility] ) Start Date: 09/04/22 Status: [...] Procedure Date Related Diagnosis Body Site Status Cholecystectomy 12/21/16 Completed Atrial septation operation 09/17/76 Completed Arthroscopic chondroplasty of knee joint Completed Cardiac catheterization C ompleted Cataract surgery Complete d Colonoscopy Completed Endometrial ablation Comp leted Ganglionectomy of tendon sheath of wrist Completed Tonsillectomy Completed Varicose vein stripping C ompleted Vital Signs Most recent to oldest [Reference Range]: 1 2 3 Temperature Temporal Artery [36-38 Deg C] 36.3 Deg C (03/01/23 11:58 AM) 36.7 Deg C (03/01/23 10:25 AM) Temperature Temporal Artery (DegF) [97.3-100 Deg F] 97.34 Deg F (03/01/23 11:58 AM) Peripheral Pulse Rate [60-100 bpm] 78 bpm (03/01/23 12:43 PM) 76 bpm (03/01/23 12:28 PM) 78 bpm (03/01/23 12:13 PM) Heart Rate Monitored [60-100 bpm] 81 bpm (03/01/23 12:43 PM) 68 bpm (03/01/23 12:28 PM) 73 bpm (03/01/23 12:13 PM) Respiratory Rate [12-24 br/min] 16 br/min (03/01/23 12:43 PM) 22 br/min (03/01/23 12:28 PM) 11 br/min *LOW* (03/01/23 12:13 PM) Blood Pressure [90-140/60-90 mmHg] 113/78mmHg (03/01/23 12:43 PM) 99/63mmHg (03/01/23 12:28 PM) 103/73mmHg (03/01/23 12:13 PM) Mean Arterial Pressure, Cuff [65-140 mmHg] 90 mmHg (03/01/23 12:43 PM) 75 mmHg (03/01/23 12:28 PM) 83 mmHg (03/01/23 12:13 PM) Weight 63.400 kg (03/01/23 10:25 AM) 66.000 kg (02/23/23 12:19 PM) Weight Dosing 63.400 kg (03/01/23 10:25 AM) 66.000 kg (02/23/23 12:19 PM) Height 172.000 cm (03/01/23 10:25 AM) 173.000 cm (02/23/23 12:19 PM) Height/Length Dosing 172.000 cm (03/01/23 10:25 AM) 173.000 cm (02/23/23 12:19 PM) Body Mass Index 21.430 kg/m2 (03/01/23 10:25 AM) Social History Social History Type Response Tobacco Never tobacco user T obacco Use:. Sex Female Hospital Discharge Instructions Patient Education 03/01/2023 11:25:18 ss colonoscopy discharge instructions (CUSTOM) COLONOSCOPY / SIGMOIDOSCOPY Following day: Return to full activity, including work. Diet: Eat and drink normally, unless instructed otherwise. Treatment for common after affects: Mild abdominal pain, bloating, or excessive gas: Rest, eat lightly and use a heating pad. Symptoms to watch for and report to your physician: SEVERE abdominal pain or bloating. Fever within 24 hours after procedure. A large amount of rectal bleeding. (A small amount of blood from the rectum is not serious, especially if hemorrhoids are present.) If bright red rectal bleeding occurs, call your physician. You have had a Colonoscopy: Do not attempt to drive a vehicle or operate power equipment of any kind for at least 24 hours after discharge from the hospital. Do not consume alcoholic beverages or other mood-altering drugs on the day of surgery. Mild irritation at needle site: Apply warm, moist pack to area for 20 minutes four times a day for 2-3 days. Call physician if persistent redness and/or drainage at needle site. In the event of any problems after surgery, do not hesitate to contact your doctor, [facility] , or the Emergency Room at [phone]. Diagnosis: Diverticulosis Doctor: Gladys Follow Up Appointment: Repeat colonoscopy in 10 years. The office will contact you at that time to schedule an appointment. Follow Up Care 01/22/2023 08:39:11 With:Adalberto Graham MD Address: [address] [address] When: Unknown Comments:Screening??colonoscopy in??10 years. Discharge instructions * Karen Marsh P: PERFORM Event Display: Discharge Instructions Authored Date: [id number] DEMIAN GUSTAFSON :1955 Age:67 years Sex:Female Visit Date:03/01/2023 Primary Care Physician: Haley Leyva INTEGRATED LOGISTICS OPERATIONS MANAGER Hospital Discharge Instructions We would like to thank you for allowing us to assist you with your healthcare needs. The following includes patient education materials and information regarding your injury/illness. Your Next Steps Instructions From Your Care Team Colonoscopy was normal, except for minimal diverticulosis. Bowel prep was excellent. Restart Eliquis tomorrow morning, 03/02/23. Discharge Orders Discharge Patient Instructions, Rest today. Resume diet and activities as tolerated. Scheduled Future Appointments Wednesday 1:00 PM EST ?? With: Bernabe Spencer MD Where: [facility] [address] [place] [address] Status: Confirmed Follow Up Appointments Follow Up with??Adalberto Graham MD Why: Screening??colonoscopy in??10 years. Where: [address] [id number]- Medications What How Much When Instructions Next Dose Unchanged apixaban (Eliquis 5 mg oral tablet) [...] mouth) 2 times a day Your Summary Your Care Team Admitting Physician - Adalberto Graham MD Attending Physician - Adalberto Graham MD Primary Care Physician - Haley Leyva NP Referring Physician - Adalberto Graham MD Your Diagnosis Screening for colon cancer Diverticulosis of colon Problems Ongoing - Any problem that you are currently receiving treatment for. 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 ?Ganglionectomy of tendon sheath of wrist???Tonsillectomy???Varicose vein stripping Allergies morphine??(Abdominal pain) Education Materials COLONOSCOPY / SIGMOIDOSCOPY ? Following day: Return to full activity, including work. Diet: Eat and drink normally, unless instructed otherwise. ? Treatment for common after affects: Mild abdominal pain, bloating, or excessive gas: Rest, eat lightly and use a heating pad. ? Symptoms to watch for and report to your physician: SEVERE abdominal pain or bloating. ? Fever within 24 hours after procedure. ? A large amount of rectal bleeding. (A small amount of blood from the rectum is not serious, especially if hemorrhoids are present.) ? If bright red rectal bleeding occurs, call your physician. ? You have had a Colonoscopy: Do not attempt to drive a vehicle or operate power equipment of any kind for at least 24 hours after discharge from the hospital. ? Do not consume alcoholic beverages or other mood-altering drugs on the day of surgery. ? Mild irritation at needle site: Apply warm, moist pack to area for 20 minutes four times a day for 2-3 days. ? Call physician if persistent redness and/or drainage at needle site. ? In the event of any problems after surgery, do not hesitate to contact your doctor, [facility] , or the Emergency Room at [phone]. Diagnosis: Diverticulosis Doctor: Gladys Follow Up Appointment: Repeat colonoscopy in 10 years. The office will contact you at that time to schedule an appointment. Patient/Care Assistant Signature Patient Name:DEMIAN GUSTAFSON I have received this information and my questions have been answered. Patient/Care Assistant Name: Patient/Care Assistant Signature: Relationship to Patient: Witness Name/Signature: Date: Electronically Signed on: 03/01/2023 12:27 EDTSigned by:IGNACIO WEIR study * Aniyah Ferrara: PERFORM Event Display: Telemetry Strips Authored Date: [id number] History and physical note * Aniyah Ferrara: PERFORM Event Display: History and Physical Authored Date: [id number] * Adalberto Graham MD: PERFORM Event Display: History and Physical Authored Date: [id number] DEMIAN GUSTAFSON :1955 Age:67 years Sex:Female Visit Date:03/01/2023 Primary Care Physician: Haley Leyva INTEGRATED LOGISTICS OPERATIONS MANAGER See paper H&P; pt examined. Proceed as planned.? Adalberto Graham MD 03/01/2023 ?? Electronically Signed on 03/01/23 11:21 AM Adalberto Graham MD * Haleigh Carranza: PERFORM Event Display: History and Physical Authored Date: [id number] DEMIAN GUSTAFSON :1955 Age:67 years Sex:Female Primary Care Physician: Haley Leyva INTEGRATED LOGISTICS OPERATIONS MANAGER Screening colonoscopy. Previous colonoscopy was done in [place] in 12/2012 Electronically Signed on 01/22/23 11:19 AM Haleigh Carranza Patient Care team information Care Team Personnel Name: Haley Leyva INTEGRATED LOGISTICS OPERATIONS MANAGER Position: PowerChart View Only Member Role: Primary Care Physician Address: Address: [address] [place] [address]- Care Team Related Persons Name: JANAYSASKIA Address: Home [address] [facility] [phone]
--- OUTSIDE RECORDS SUMMARY | 2024-04-26 11:13 | XMS_ITS | Continuity of Care Document ---
Author Organization [facility] Address [address] [place] [address] Care Team Providers Care Coach Builder Name Role Phone Haley Leyva Primary Care Physician [phone] Encounter [facility] Date(s): 04/07/23 - 04/07/23 [facility] [address] [place] [address] us Encounter Diagnosis Atrial fibrillation(Discharge Diagnosis) - 04/07/23 Discharge Disposition: Home or Self Care Attending Physician: Bernabe Spencer MD Allergies, Adverse Reactions, Alerts Substance Reaction Severity Status morphine Abdominal pain Moderate Active Medications Eliquis 5 mg oral tablet 5 mg = 1 tab, Oral, BID, # 90 tab, 11 Refill(s), Pharmacy: [facility] ) Start Date: 09/04/22 Status: Ordered Eliquis 5 mg oral tablet 5 mg = 1 tab, Oral, BID, # 60 tab, 11 Refill(s), Pharmacy: [facility] Start Date: 09/03/22 Status: Ordered flecainide 100 [...] BID, # 60 cap, 11 Refill(s), [facility] Start Date: 09/03/22 Status: Ordered metoprolol succinate 50 mg oral tablet, extended release 50 mg = 1 tab, Oral, BID, # 180 tab, 11 Refill(s), [facility]: [facility] ([facility] ) Start Date: 09/04/22 Status: [...] Range]: 1 Peripheral Pulse Rate [60-100 bpm] 81 bp m (04/07/23 10:23 AM) Blood Pressure [90-140/60-90 mmHg] 127/6 1mmHg (04/07/23 10:23 AM) Mean Arterial Pressure, Cuff [70-110 mmH g] 83 mmHg (04/07/23 10:23 AM) Weight 66.25 kg (04/07/23 10:23 AM) Weight Measured (lbs) 146.056 lb (04/07/23 10:23 AM) Weight Dosing 66.250 kg (04/07/23 10:23 AM) Height 172.72 cm (04/07/23 10:23 AM) Height/Length Measured (inches) 68 inch (04/07/23 10:23 AM) BSA Measured 1.78 m2 (04/07/23 10:23 AM) Body Mass Index 22.21 kg/m2 (04/07/23 10:23 AM) Social History Social History Type Response Tobacco Never tobacco user T obacco Use:. Sex Female Physician Outpatient Note * Bernabe Spencer MD: PERFORM Event Display: Office Clinic Note Physician Authored Date: [id number] ALLIE GUSTAFSON :1955 Age:67 years Sex:Female Visit Date:04/07/2023 Primary Care Physician: Haley Leyva NP History [...] the day before??scheduled cardioversion. Review of Systems A complete review of systems is negative other than as noted in the history of present illness. Physical Exam Vitals & Measurements HR:??81??(Peripheral)?? BP:??127/61?? SpO2:??97%?? HT:??172.72??cm?? WT:??66.25??kg?? BMI:??22.21?? BSA:??1.78?? HEENT: Normocephalic, atraumatic Respirations: Clear to [...] currently. ??It??is always a genuine??pleasure to see Allie, and I am glad to see she is doing well. Clinic Assessment/Plan Atrial fibrillation??I48.91 Actions: ORDERED - flecainide, 100 mg = 1 tab, Oral, every 12 hr, # 180 tab, 4 Refill(s), Pharmacy: [facility], 172.72, cm, 04/07/23 10:23:00 EST, Height, 66.25, kg, 04/07/23 10:29:00 EST, Weight Dosing COMPLETED - [id number] Office/Outpatient Visit - Established Patient, Level 3 (20-29 min)., 04/07/23 10:06:00 EST, Atrial fibrillation COMPLETED - CV ECG Clinic, 04/07/23 10:22:00 EST, Routine, Reason: Other (please specify), Stop date and time 04/07/23 10:22:00 EST, Atrial fibrillation, ORD_SET_REQ_DT_RANGE, Iza's Internal Person Id FUTURE - Follow-Up Appointment Request [facility], *Est. 05/19/23 +/- 7 days, Future Order, In Approximately, [facility] COMPLETED - Follow-Up Appointment Request [facility], 04/07/23 10:40:00 EST, In Counts Include [address], [facility], 04/07/23 10:40:00 EST COMPLETED - Referral Management, Medical Service: Cardiology, Reason: Needs cardioversion in 2 or 4 weeks, Start: 04/07/23 ?? Problem List/Past Medical History Ongoing Atrial [...] Medications What How Much When Why Instructions New flecainide (flecainide 100 mg oral tablet) 1 tab Oral (given by mouth) Every 12 hours Atrial fibrillation Refills: 4 Pickup at [facility] Unchanged apixaban (Eliquis 5 mg oral tablet) [...] (given by mouth) 2 times a day Pharmacy Information [facility]: [address] [facility] [address] [place], [place] [id number] [phone] Allergies morphine??(Abdominal pain) Social History Alcohol Never Electronic Cigarette/Vaping Electronic Cigarette Use: Never. Tobacco Never tobacco user Tobacco Use:. Family History Stroke: Father. Electronically Signed on 04/07/23 11:00 AM Bernabe Spencer MD Patient Care team information Care Team Personnel Name: Haley Leyva NP Position: PowerChart View Only Member Role: Primary Care Physician Address: Address: [address] [place] [address] Care Team Related Persons Name: SASKIA GUSTAFSON Address: Home [address] [facility] [address] [facility], [phone]
--- OUTSIDE RECORDS SUMMARY | 2024-04-26 11:13 | XMS_ITS | Continuity of Care Document ---
Author Organization [facility] Address [address] [place] [address] Care Team Providers Care Embedded Engineer Name Role Phone Haley Leyva Primary Care Physician Encounter [facility] [id number] Date(s): 05/24/23 - 05/24/[address] [address] Encounter Diagnosis Tachycardia(Discharge Diagnosis) - 05/24/23 Atrial fibrillation(Discharge Diagnosis) - 05/24/23 Discharge Disposition: Home or Self Care Attending Physician: Bernabe Spencer MD Admitting Physician: Bernabe Spencer MD Referring Physician: Bernabe Spencer MD Allergies, Adverse Reactions, Alerts Substance Reaction Severity Status morphine Abdominal pain Moderate Active Assessment and Plan Future Appointments Medications Eliquis 5 mg oral tablet 5 mg = 1 tab, Oral, BID, # 90 tab, 11 Refill(s), Pharmacy: [email or web address] ([email or web address] ) Start Date: 09/04/22 Status: Ordered Eliquis 5 mg oral tablet 5 mg = 1 tab, Oral, BID, # 60 tab, 11 Refill(s), Pharmacy: [id number] Start Date: 09/03/22 Status: Ordered flecainide 100 [...] BID, # 60 cap, 11 Refill(s), Pharmacy: [id number] Start Date: 09/03/22 Status: [...] tobacco user T obacco Use:. Sex Female Cardiology * Anabell Rudd: PERFORM Event Display: Event Monitor Authored Date: [id number] DEMIAN GUSTAFSON [id number] Patient placed on Zio Event Monitor 14 days on 05/24/23 by Vielka Manuel, [place]. Electronically Signed on 05/24/23 10:09 AM Anabell Rudd Patient Care team information Care Team Personnel Name: Haley Leyva EXTRUDER OPERATOR VERTICAL Position: PowerChart View Only Member Role: Informed Provider Address: Address: [address] [place] [address] Care Team Related Persons Name: SASKIA GUSTAFSON Address: Home [address] [place] [id number] Name: ISABEL GUSTAFSON
--- OUTSIDE RECORDS SUMMARY | 2024-04-26 11:14 | XMS_ITS | Encounter Summary ---
Author Organization [facility] [place] [address] Care Team Providers Care Telephone Lineworker Name Role Phone Sinshara Haley Bishop COHEN Primary Care Provider [phone] Reason for Visit * Auth/Cert (Routine) Specialty Diagnoses / Procedures Referred By Contac t Referred To Contact Diagnoses Longstanding persistent atrial fibrillation persistent atrial fibrillation Procedures PRO CARDIOVERSION ELECTIVE ARRHYTHMIA EXTERNAL CARDIOVERSION-ELECTIVE (WRVU 2) Sohail Gutierrez MD [facility] [place] [address] [place] [address] [facility] Referral ID Status Reason Start Date Expiration Date Visits Re quested Visits Authorized [id number] 1 1 Encounter Details Date Type Department Care Team (Latest Contact Info) Description 03/21/2024 11:13 AM EST - 03/21/2024 2:36 PM [facility] Hospital Encounter [place] [address] Denzel Moreno MD [facility] [place] [address] [place] [address] Longstanding persistent atrial fibrillation Discharge Disposition: Home Social History Tobacco Use Types Packs/Day Years Used Date Smoking Tobacco: Never Smokeless Tobacco: Never Alcohol Use Standard Drinks/Week Comments Not Currently 0 (1 standard drink = 0.6 oz pur e alcohol) [facility] Inpatient Questions Answer Date Recorded Does Anyone Try to Keep You From Having Contact with Others or Doing Things Outside Your Home? no 03/21/2024 Feels Threatened by Someone no 110 09/2023 Feels Unsafe at Home or Work/School no 03/21/2024 Physical Signs of Abuse Present no 03/21/2024 Sex and Gender Information Value Date Recorded Sex Assigned at Female 11/19/2023 9:55 AM EDT Gender Identity Female 11/19/2023 9:55 AM EDT Sexual Orientation Not on file documented as of this encounter Last Filed Vital Signs Vital Sign Reading Time Taken Comments Blood Pressure 121/60 03/21/2024 2:15 PM EST Pulse 67 03/21/2024 11:54 AM EST Temperature 36.4 ??C (97.5 ??F) 03/21/2024 2:15 PM ES T Respiratory Rate 16 03/21/2024 1:16 PM EST Oxygen Saturation 99% 03/21/2024 2:15 PM EST Inhaled Oxygen Concentration - - Weight 72.5 kg (159 lb 14.4 oz) 024 11:54 AM EST Height 172.7 cm (5' 8) 03/21/2024 11:5 4 AM EST Body Mass Index 24.31 03/21/2024 11:54 AM EST documented in this encounter Discharge Instructions * Discharge Instructions* Naomy Oliver RN - 03/21/2024 1:45 PM EST CARDIOVERSION INFORMATION What are the risks of cardioversion? Cardioversion is a frequently performed procedure with a low risk of serious side effects. Serious complications occur in less than one out of a hundred patients. These complications include: A very slow heartbeat (bradycardia) A very fast heartbeat (tachycardia) Stroke Pneumonia You may have redness, burning, stinging, or itching on the skin where the pads were placed. If you go home and are uncomfortable, there are several ointments that you can purchase over the counter touse on your skin. For example: Anesthetic ointment, such as Lanacaine Hydrocortisone 1% (steroid) cream in the form of Cortaid or Kericort Some patients report that applying ice packs to the pad sites decreases the discomfort. Call the cardiologists who performed the test if you need a prescription for a stronger medication. What instructions should I follow for the next few days after the cardioversion? Activity: Rest after the procedure. You may be sleepy for several hours. Be careful on the stairs during the remainder of the day; you may be unsteady on your feet. Do not smoke at home if you are alone for 24 hours following your procedure. Do not drive, operate machinery, drink alcoholic beverages, or make important decisions for 24 hours. The medications may change your reaction time or judgment without your awareness. Diet: Follow your regular diet as tolerated. If nausea occurs, start with clear liquids, and progress slowly to your regular diet. Medications: Your heart medications may not be the same after your cardioversion. Check with your doctor about what medicines to take. Follow-up care: If you have return of the symptoms associated with your abnormal heartbeat, contact your doctor. If you need a stronger medicine to treat your skin where the adhesive pads were placed, call the general operations manager part time receptionist at . We will schedule a follow-up appointment with the general operations manager here, or you will be scheduled to see your local doctor soon. Any specific instructions that apply to you will be given to you prior to discharge from the hospital. If you have any questions about this procedure, call: Cardiology Department [facility] Wednesday through Wednesday After hours and weekends 8:00 a.m. to 4:30 p.m. Ask for Cardiology Resident Middleware Systems Architect documented in this encounter Medications at Time of Discharge Medication Sig Dispensed Refills Start Date End Date Eliquis 5 mg tablet Take 5 mg by mouth 2 times daily. 09/03/2022 metoprolol succinate XL (Toprol-XL) 50 mg ER 24 hr tablet Take 1 tablet by mouth daily. 09/04/2022 AMIOdarone (Pacerone) 200 mg tabletIndications:Persis tent atrial fibrillation Take 1 tablet by mouth 2 times daily for 14 days, THEN 1 tablet daily for 85 days. Take with food 113 tablet 01/10/2024 03/28/2024 documented as of this encounter H&P Notes * Pasquale Cai PA - 03/21/2024 11:58 AM EST Pre-Cardioversion Interval H+P 68yo woman with persistent atrial fibrillation, insufficiently controlled on flecainide, now on amiodarone, metoprolol and anticoagulated with apixaban. She has been NPO since before midnight. OK to proceed to cardioversion. Please see today's outpatient clinic note for details. documented in this encounter Miscellaneous Notes * Brief Op Note - Denzel Moreno MD - 03/21/2024 2:36 PM EST Brief Operative Note Patient Name: Allie Dunaway : [id number] MR#: [id number] Case Date: 03/21/2024 Surgeon: Surgeons and Role: * Denzel Moreno MD - Primary Preoperative diagnosis: persistent atrial fibrillation Postoperative diagnosis: persistent atrial fibrillation Procedure(s) (LRB): CARDIOVERSION-ELECTIVE (WRVU 2) (N/A) Anesthesia: General Findings: Successful cardioversion of AF to NSR with 200J Complications: None Intake: Intraprocedure Crystalloid Total Intake lactated ringers 100.00 mL Total Intake 100 mL Output Blood Loss 0 mL Total Output 0 mL Net Net Volume 100 mL Transfusion No data found in the last 1 encounters. Output: Estimated Blood Loss: 0 mL Urine Output:: (no urine output recorded) Other Output: (no other output recorded) Drains: none Specimens removed during surgery: None Disposition: aroused from sedation, and taken to the recovery room in a stable condition Condition: doing well without problems Attestation: Case Date: 03/21/2024 I performed this procedure without the involvement of a resident. (Please see the Surgical Encounter Summary for any Implant and Specimen details pertinent to this patient.) Surgical Infection Prevention Bundle Used? N/A I, Denzel Moreno MD, was present for the entire case and performed the entire procedure. 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 After answering all of the patient's questions and assuring informed consent, and with the anesthesiology service assisting with sedation and airway management, the patient transiently was anesthetized. The electrode pads were placed in the following position: Right anterior, left scapular The patient received #1 synchronized discharge(s) and the maximal discharge at 200wsec joules. NSR restored successfully: ([X]) Yes ([]) Yes, but with early relapse ([]) No Complications: The patient subsequently awoke with no memory of the cardioversion, and there were no apparent complications. Provider Instructions: A follow up 12-lead ECG will be obtained. Summary: Successful cardioversion of atrial fibrillation Recommendations: - Follow up 12-lead ECG - Continue current medications - Follow-up for outpatient PVI - Follow up with ERICK Ray MD Cardiac Railcar Switchman 03/21/24 documented in this encounter Plan of Treatment Upcoming Encounters Date Type Department Care Team (Latest Contact Info) Description 07/20/2024 7:30 AM EST Hospital Encounter Electrophysiology [place] [address] Denzel Moreno MD [facility] [place] [address] Persistent atrial fibrillation 07/27/2024 7:30 AM EDT - 07/27/2024 12:00 PM EDT Surgery Electrophysiology [place] [address] Denzel Moreno MD [facility] [place] [place] [address] ELECTROPHYSIOLOGY PROCEDURE Scheduled Procedures Name Priority Associated Diagnoses Date/Ti me ELECTROPHYSIOLOGIC EVALUATIO N INCLUDING TRANSSEPTAL CATHETERIZATIONS; INSERTION AND REPOSITIONING OF MULTIPLE ELECTRODE CATHETERS (WRVU 17) Persistent atrial fibrillation 07/27/2024 7:30 AM EDT documented as of this encounter Procedures Procedure Name Priority Date/Time Associated Diagnosis Comments Cardioversion Elective Arrhythmia External (06145) 03/21/2024 12:46 PM EST Longstanding persistent atrial fibrillation CARDIOVERSION-OR Routine 03/21/2024 11:4 4 AM EST Longstanding persistent atrial fibrillation ECG SCAN 03/16/2024 12:00 AM EDT documented in this encounter Results * Scan Doc: ECG (03/16/2024 12:00 AM EDT) Narrative 03/16/2024 12:00 AM EDT Ordered by an unspecified provider. Scanning Provider MEDIA MGR SCAN EXT O RDR/RSLT documented in this encounter Visit Diagnoses Diagnosis Longstanding persistent atrial fibrillation Persistent atrial fibrillation Atrial fibrillation Persistent atrial fibrillation Atrial fibrillation documented in this encounter Care Teams Telephone Lineworker Relationship Specialty Start Date End Date Haley Leyva APRN [address] [place] [id number] PCP - General Family Medicine 03/21/24 documented as of this encounter
--- OUTSIDE RECORDS SUMMARY | 2024-04-26 11:14 | XMS_ITS | Encounter Summary ---
Author Organization [facility] [place] [address] Care Team Providers Care Water/Wastewater Project Engineer Name Role Phone Haley Leyva VICKI Primary Care Provider [phone]- [phone] Encounter Details Date Type Department Care Team (Late st Contact Info) Description 03/21/2024 Orders Only Cardiology at [address] [phone] Denzel Moreno MD [facility] [place] [address] Persistent atrial fibrillation Social History Tobacco Use Types Packs/Day Years Used Date Smoking Tobacco: Never Smokeless Tobacco: Never Alcohol Use Standard Drinks/Week Comments Not Currently 0 (1 standard drink = 0.6 oz pur e alcohol) [facility] Inpatient Questions Answer Date Recorded Does Anyone Try to Keep You From Having Contact with Others or Doing Things Outside Your Home? no 03/21/2024 Feels Threatened by Someone no 09/2023 Feels Unsafe at Home or Work/School no 03/21/2024 Physical Signs of Abuse Present no 03/21/2024 Sex and Gender Information Value Date Recorded Sex Assigned at Female 11/19/2023 9:55 AM EDT Gender Identity Female 11/19/2023 9:55 AM EDT Sexual Orientation Not on file documented as of this encounter Plan of Treatment Upcoming Encounters Date Type Department Care Team (Latest Contact Info) Description 07/20/2024 7:30 AM [facility] Hospital Encounter [place] [phone] Denzel Moreno MD [facility] [place] [address] Persistent atrial fibrillation 07/27/2024 7:30 AM EDT - 07/27/2024 12:00 PM EDT Surgery [place] [address] Denzel Moreno MD [facility] [place] [address] ELECTROPHYSIOLOGY PROCEDURE Scheduled Procedures Name Priority Associated Diagnoses Date/Ti me ELECTROPHYSIOLOGIC EVALUATIO N INCLUDING TRANSSEPTAL CATHETERIZATIONS; INSERTION AND REPOSITIONING OF MULTIPLE ELECTRODE CATHETERS (WRVU 17) Persistent atrial fibrillation 07/27/2024 7:30 AM EDT documented as of this encounter Visit Diagnoses Diagnosis Persistent atrial fibrillation Atrial fibrillation Persistent atrial fibrillation Atrial fibrillation Persistent atrial fibrillation Atrial fibrillation documented in this encounter Care Teams Water/Wastewater Project Engineer Relationship Specialty Start Date End Date Haley Leyva APRN [address] [place] [id number] PCP - General Family Medicine 03/21/24 documented as of this encounter
--- OUTSIDE RECORDS SUMMARY | 2024-04-26 11:14 | XMS_ITS | Encounter Summary ---
[place] [address] Care Team Providers Care Gas Operator Name Role Phone Unavailable Primary Care Provider Unavailabl e Reason for Referral * Consultation (Routine) - Authorized Specialty Diagnoses / Procedures Referred By Contac t Referred To Contact Sleep Center Diagnoses Tarsha Harper APRN [facility] [place] [address] Referral ID Status Reason Start Date Expiration Date Visits Requested Visits Authorized [id number] Authorized Consult, Test & Treat 11/24/2023 05/22/2024 1 1 Reason for Visit * Consultation (Routine) - Closed Specialty Diagnoses / Procedures Referred By Contact Referred To Contact Electrophysiology / Cardiology Diagnoses Tachycardia Tachycardia, unspecified. Bernabe Spencer MD [address] [place] [address] [facility] [address] [place] [phone] Referral ID Status Reason Start Date Expiration Date V isits Requested Visits Authorized [id number] Closed Consult, Test & Treat PCP Updated and/or Approved 06/07/2023 06/06/2024 1 1 Encounter Details Date Type Department Care Team (Late st Contact Info) Description 11/24/2023 4:00 PM EDT Office Visit Cardiology at [address] [phone] Tarsha Tay APRN [facility] [place] [address] Persistent atrial fibrillation; Snores; High risk medication use Social History Tobacco Use Types Packs/Day Years Used Date Smoking Tobacco: Never Smokeless Tobacco: Never Tobacco Cessation:Counseling Given: Not Answered Sex and Gender Information Value Date Recorded Sex Assigned at Female 11/19/2023 9:55 AM EDT Gender Identity Female 11/19/2023 9:55 AM EDT Sexual Orientation Not on file documented as of this encounter Last Filed Vital Signs Vital Sign Reading Time Taken Comments Blood Pressure 132/72 11/24/2023 3:37 PM EDT Pulse 81 11/24/2023 3:37 PM EDT Temperature - - Respiratory Rate - - Oxygen Saturation 99% 11/24/2023 3:37 PM EDT Inhaled Oxygen Concentration - - Weight 70.3 kg (155 lb) 11/24/2023 3:37 PM EDT Height 172.7 cm (5' 8) 11/24/2023 3:37 PM EDT Body Mass Index 23.57 11/24/2023 3:37 PM EDT documented in this encounter Patient Instructions * Patient Instructions* Tarsha Tay APRN - 11/24/2023 4:00 PM EDT Images from the original note were not included. We discussed AFib management today, with a plan to obtain labs from [facility] with your PCP Diana. We discussed starting amiodarone loading and then plan to electrically cardiovert within 6 weeks after starting the antiarrhythmic medicine. We also discussed ablation procedure. There may be some tech tach technical difficulties with your history of having ASD repair I would recommend speaking with an monkey keeper Regarding ablation procedure if that is a potential consideration in the future There are websites you can check out for further information regarding atrial fibrillation: www.stopafib.org this is a patient website that was written by the patient who has A-fib. These are websites for patient information from the [employer] https://www.cardiosmart.org/topics/atrial-fibrillation https://www.cardiosmart.org/assets/fact-sheet/90-vtdsc-thi-ehp-cfer-ti-manage-at rial-fibrillation * Attachments The following attachments cannot be sent through Care Everywhere. * Diet: DASH (Tanzanian) * Amiodarone Oral Tablet (AMIODARONE - ORAL) (Tanzanian) * Cardioversion: Chemical (Tanzanian) * Electrical Cardioversion (Tanzanian) documented in this encounter Progress Notes * Tarsha Tay APRN - 11/24/2023 4:00 PM EDT Images from the original note were not included. Cardiac Electrophysiology Clinic Visit Subjective: Patient ID: Allie Dunaway is a 67 y.o. female. CC: New patient referral from [facility], Dr. Spencer for atrial fibrillation. PCP: Haley Leyva Cardiology: [facility]- Dr. Spencer is no longer there. HPI: 67 y.o. female with past medical history of paroxysmal atrial fibrillation, atrial septal defect/repair ?1974, mild to moderate MR on echo, previously on flecainide (stopped 04/07/2023), on Eliquis, metoprolol succinate 50 mg dailywho presents for AF management. Other history: endometriosis, osteoarthritis, vitamin D deficiency, varicose veins- remotely-had stripped with superficial clot traveled to her groin. In the she had erratic, fast heart beats, and was put on metoprolol and lanoxin- (lanoxin was stopped years later, but continues on metoprolol). Here with , Daniel. From Dr. Spencer's note 08/13/2023: A Zio patch in the interim showed continuous A-fib over 14 days. largely asymptomatic; there is no chest pain, orthopnea, PND, palpitations, syncope, dyspnea exertion, or lower extremity edema. She is looking forward to being able to walk outside once the ground firms up a little bit. She is minimally symptomatic. She did have sinus rhythm after cardioversion but even with flecainide we were unable to maintain that. We talked about the benefits of restoring sinus rhythm; the next step would be either to consider admission for an antiarrhythmic such as sotalol or Tikosyn ,or pulmonary vein isolation (atrial fibrillation ablation). Echo: 11/27/21. LVEF 59%, AFib throughout the study with controlled ventricular rates. Severe LA enlargement. Mid to moderate mitral regurgitation. Mild tricuspid regurgitation. Stress echo 02/23/2023: LVEF 65%. normal augmentation at peak exercise. Severe LA (PUMA 67). Moderate MR, moderate TR. AF Type: paroxysmal, now persistent -Diagnosed: unsure of date, ~1-2 years ago Symptoms: mild, but notices fluttering, irregular heart beats, and decreased energy with decreased stamina. Needs to sit to catch her breath and get more energy. She is always on the go with house chores and yard work. Lives in a 2 level house, always up and down the stairs. has require more care recently, so she has been up and down the stairs more often bringing him food and various things. Walks to mailbox, has 2 bum knees, exhausting to walk to mailbox now. Has 3 yo grandson she keeps busy with. Prior therapies: Flecainide, cardioversion in the Fall 2022 lasted ~1 week, didn't notice the symptoms much until Dr. Spencer told her she was in continuous AFib from the Ziop[place]. Anticoagulation: Eliquis 5 mg BID Rate control: metoprolol succinate 50 mg BID Previous DCCV: 05/04/2023 (2 shocks) Previous AAD: Flecainide (stopped in July 2023). Previous ablation: none Sleep apnea: none diagnose. She snores, concerned if she breathes while sleeping, sometimeswatches her chest waiting for her to breathe. He uses CPAP and finds it very helpful. 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 Vitamin D deficiency Acquired hallux valgus of right foot ROS: see HPI Constitutional: - fatigue, - fever, - chills Respiratory: + shortness of breath, - cough, - apnea, - wheezing Cardiovascular: - chest pain, + palpitations, + unusual rates Gastrointestinal: - nausea, - vomiting, - abdominal pain, - diarrhea Neurological: - lightheadedness, - dizziness, - syncope, - weakness Psychiatric: - anxious Family History: No AFib or heart rhythm abnormalities Social History: Tobacco: none Alcohol: none Herbals/supplements/recreational drugs: none Sleep: ~3-5 hours per night, interrupted, snores Occupation: 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 Exercise: no structured program, walks outside, house chores, yard work. Water intake: drinks not as much as she should- ~2-3 glasses per day. Medications: Current Outpatient Medications Medication Sig Dispense Refill Eliquis 5 mg tablet Take 5 mg by mouth 2 times daily. metoprolol succinate XL (Toprol-XL) 50 mg ER 24 hr tablet Take 1 tablet by mouth 2 times daily. Objective: Vitals: Vitals: 11/24/23 1537 BP: 132/72 Pulse: 81 SpO2: 99% Weight: 70.3 kg (155 lb) Height: 172.7 cm (5' 8) Physical Exam: General- No acute distress, sitting comfortably in exam room chair HEENT- Head atraumatic, normocephalic Skin- warn, dry, intact Neck- No JVD noted Cardiovascular- S1/S2 irregular rate and rhythm. No murmur, rub or gallop Lungs- Clear to auscultation bilaterally Extremities- Pulses equal bilaterally. Right lower leg mild edema noted, left ankle trace edema at sock line. Neuro- A&Ox3 ECG in office today shows atrial fibrillation 86 bpm, QRS 74 ms, QT 388ms, QTc 464 ms. Stress Echocardiogram: 02/23/23 Assessment and Plan: 67 y.o. with medical history significant for persistent atrial fibrillation, atrial septal defect/repair 09/18/1974, previously on flecainide (stopped 04/07/2023), on Eliquis, metoprolol succinate 50 mg who presents for AF manageme. Persistent atrial fibrillation [id number] Score is 2 (Age-1, Female-1, ), with a 2.2% risk of stroke or clot in 1 year. She takes Eliquis for anticoagulation. Previously on flecainide 100 mg BID, with breakthrough AF, despite cardioversion, and flecainide was stopped, with referral to EP for rhythm management. Continues on metoprolol succinate for rate control. We discussed at length and in detail atrial fibrillation, its natural history and its pathophysiology. We discussed rate versus rhythm control and that the role of rhythm control is largely to control symptoms. We discussed rhythm control options including antiarrhythmic drugs (flecainide, dofetilide, sotalol, dronedarone, amiodarone) and ablation. We also spoke about the lifestyle factors that can impact AF frequency: obstructive sleep apnea, overweight, low amount of exercise and alcohol intake. We spoke of the procedural details, risks, benefits of atrial fibrillation ablation. I would like to have more records, from PCP Diana at [facility] regarding recent labs (looking for CMP, TSH), has not had PFTs, nor sleep apnea evaluation, would like to refer her to these tests to her local area. We talked about lifestyle implications and modifications, and I provided many resources. She likelyhas sleep apnea, and I referred her to sleep medicine. With a severely dilated left atrium, I would recommend amiodarone loading with possible electrical cardioversion in ~6 weeks. Her previous ASD repair (?1974, details unclear, no occluder- sewn, per patient) may present technical challenges and I would refer to an monkey keeper MD regarding procedural discussion. Plan: 1. Request records from PCP about recent labs (looking for CMP, TSH) 2. PFTs baseline prior to starting amiodarone- external referral 3. Sleep medicine evaluation for sleep apnea- external referral. 4. Consider amiodarone loading and cardioversion 4-6 weeks later. Tarsha Tay, VICKI 11/24/23 Patient Instructions We discussed AFib management today, with a plan to obtain labs from [facility] with your PCP Diana. We discussed starting amiodarone loading and then plan to electrically cardiovert within 6 weeks after starting the antiarrhythmic medicine. We also discussed ablation procedure. There may be some tech tach technical difficulties with your history of having ASD repair I would recommend speaking with an monkey keeper Regarding ablation procedure if that is a potential consideration in the future There are websites you can check out for further information regarding atrial fibrillation: www.stopafib.org this is a patient website that was written by the patient who has A-fib. These are websites for patient information from the [employer] https://www.cardiosmart.org/topics/atrial-fibrillation https://www.cardiosmart.org/assets/fact-sheet/19-bwpdj-dgm-etv-endc-rt-manage-at rial-fibrillation documented in this encounter Plan of Treatment Upcoming Encounters Date Type Department Care Team (Latest Contact Info) Description 07/20/2024 7:30 AM EST Hospital Encounter [place] [address] Denzel Moreno MD [facility] [place] [address] Persistent atrial fibrillation 07/27/2024 7:30 AM EDT - 07/27/2024 12:00 PM EDT Surgery [place] [phone] Denzel Moreno MD [facility] [place] [address] ELECTROPHYSIOLOGY PROCEDURE Scheduled Orders Name Type Priority Associated Diagnoses Orde r Schedule Common Pulmonary Function Test PFT Routine High risk medication use Expected: 11/24/2023, Expires: 05/25/2024 Scheduled Procedures Name Priority Associated Diagnoses Date/Ti me ELECTROPHYSIOLOGIC EVALUATIO N INCLUDING TRANSSEPTAL CATHETERIZATIONS; INSERTION AND REPOSITIONING OF MULTIPLE ELECTRODE CATHETERS (WRVU 17) Persistent atrial fibrillation 07/27/2024 7:30 AM EDT Scheduled Referrals Name Type Priority Associated Diagnoses Orde r Schedule Referral to Sleep Disorders Center Outpatient Referral Routine Snores Ordered: 11/24/2023 documented as of this encounter Procedures Procedure Name Priority Date/Time Associated Diagnosis Comments EKG 12-LEAD Routine 11/24/2023 3:42 PM EDT Persistent atrial fibrillation documented in this encounter Results * EKG 12 Lead (11/24/2023 3:42 PM EDT) Ventricular rate 86 BPM MUSE SYSTEM QRS Duration 74 ms MUSE SYSTEM Q-T Interval 388 ms MUSE SYSTEM QTC Calculated (Bezet) 464 ms MUSE SYSTEM Calculated R [place] 46 degrees MUSE SYSTEM Calculated T [place] 34 degrees MUSE SYSTEM INTERPRETATION Atrial fibrillation Abnormal ECG No previous ECGs available Confirmed by MD ANTNOIO, DIMA ([id number]) on 11/24/2023 10:05:48 PM MUSE SYSTEM 11/24/2023 3:42 PM EDT 11/24/2023 10:05 PM EDT Tarsha Tay APRN ECG ORDERABLES MUSE SYSTEM documented in this encounter Visit Diagnoses Diagnosis Persistent atrial fibrillation Atrial fibrillation Snores Other dyspnea and respiratory abnormality High risk medication use Encounter for long-term (current) use of other medications Persistent atrial fibrillation Atrial fibrillation Persistent atrial fibrillation Atrial fibrillation documented in this encounter
--- OUTSIDE RECORDS SUMMARY | 2024-04-26 11:14 | XMS_ITS | Encounter Summary ---
Author Organization [facility] [place] [address] Care Team Providers Care Conditioning Yard Supervisor Name Role Phone Unavailable Primary Care Provider Unavailabl e Encounter Details Date Type Department Care Team (Late st Contact Info) Description 03/10/2024 Orders Only Cardiology at [address] [phone] Tarsha Tay APRN [facility] [place] [address] Persistent atrial fibrillation Social History Tobacco Use Types Packs/Day Years Used Date Smoking Tobacco: Never Smokeless Tobacco: Never Sex and Gender Information Value Date Recorded Sex Assigned at Female 11/19/2023 9:55 AM EDT Gender Identity Female 11/19/2023 9:55 AM EDT Sexual Orientation Not on file documented as of this encounter Plan of Treatment Upcoming Encounters Date Type Department Care Team (Latest Contact Info) Description 07/20/2024 7:30 AM EST Hospital Encounter [place] [phone] Denzel Moreno MD [facility] [address] Persistent atrial fibrillation 07/27/2024 7:30 AM EDT - 07/27/2024 12:00 PM EDT Surgery [place] [phone] Denzel Moreno MD [facility] [place] [address] ELECTROPHYSIOLOGY PROCEDURE Scheduled Procedures Name Priority Associated [...]
--- OUTSIDE RECORDS SUMMARY | 2024-04-26 11:14 | XMS_ITS | Encounter Summary ---
Author Organization [facility] [place] [address] Care Team Providers Care Dance Instructor Name Role Phone Unavailable Primary Care Provider Unavailabl e Encounter Details Date Type Department Care Team (Late st Contact Info) Description 02/05/2024 Orders Only Cardiology at [address] [phone] Tarsha Tay APRN [facility] [address] [place] [address] Persistent atrial fibrillation Social History Tobacco Use [...] AM EST Hospital Encounter [place]rophys[place] [phone] Denzel Moreno MD [facility] [place] [address] Persistent atrial fibrillation 07/27/2024 7:30 AM EDT - 07/27/2024 12:00 PM EDT Surgery [place] [phone] Denzel Moreno MD [facility] [address] ELECTROPHYSIOLOGY PROCEDURE Scheduled Procedures Name Priority Associated [...]
--- OUTSIDE RECORDS SUMMARY | 2024-04-26 11:14 | XMS_ITS | Encounter Summary ---
Author [facility] [place] [address] Care Team Providers Care Manager Country Name Role Phone Unavailable Primary Care Provider Unavailabl e Encounter Details Date Type Department Care Team (Late st Contact Info) Description 01/10/2024 [place] [address] Tarsha Tay APRN [facility] [address] Persistent atrial fibrillation; On amiodarone therapy Social History Tobacco Use Types Packs/Day Years Used Date Smoking Tobacco: Never Smokeless Tobacco: Never Sex and Gender Information Value Date Recorded Sex Assigned at Female 11/19/2023 9:55 AM EDT Gender Identity Female 11/19/2023 9:55 AM EDT Sexual Orientation Not on file documented as of this encounter Progress Notes * Tarsha Tay APRN - 01/10/2024 1:29 PM EDT Images from the original note were not included. Cardiac electrophysiology Telephone call to Allie regarding follow up on our recent visit. She reports ongoing decreased energy and mild symptoms of palpitations. I reviewed recent PFT results from outside hospital, which are normal. I also reviewed lab results that were received 12/30/23 from April 2023 and are within normal range. Discussed starting amiodarone loading and then cardioversion in 6 weeks. Discussed potential GI upset and recommend to take with food. Plan: Amiodarone load 200 mg twice daily for 2 weeks, then decrease to 200 mg daily. (Written for 85 daysas a taper due to limitation on prescription, can renew 200 mg daily thereafter). Decrease metoprolol succinate 50 mg daily when starting amiodarone. Continue Eliquis uninterrupted for cardioversion. Cardioversion in ~6 weeks (mid-February), with CMP, TSH cascade morning of cardioversion. Hold metoprolol the morning of cardioversion. Sleep medicine referral placed 11/24/23, prefers near [place], [place]. Follow up in 1 month post cardioversion (~mid March). Tarsha Tay APRN 01/10/24 documented in this encounter Plan of Treatment Upcoming Encounters Date Type Department Care Team (Latest Contact Info) Description 07/20/2024 7:30 AM EST Hospital Encounter [place] [address] Denzel Moreno MD [facility] [place] [address] Persistent atrial fibrillation 07/27/2024 7:30 AM EDT - 07/27/2024 12:00 PM EDT Surgery [place] [address] Denzel Moreno MD [facility] [place] [address] ELECTROPHYSIOLOGY PROCEDURE Scheduled Procedures Name Priority Associated Diagnoses Date/Ti ky ELECTROPHYSIOLOGIC EVALUATIO N INCLUDING TRANSSEPTAL CATHETERIZATIONS; INSERTION AND REPOSITIONING OF MULTIPLE ELECTRODE CATHETERS (WRVU 17) Persistent atrial fibrillation 07/27/2024 7:30 AM EDT documented as of this encounter Results * TSH Daisy (03/21/2024 9:59 AM EST) Thyroid Stimulating Hormone 2.85 0.27 - 4.20 mcIU/mL 03/21/2024 11:05 AM EST [facility] Comment: Reference Interval (mcIU/mL): ?? Females: ? First Trimester: 0.23-3.88 ? Second Trimester: 0.22-3.90 ? Third Trimester: 0.44-4.66 Blood VENOUS BLOOD SPECIMEN / Unknown Venipuncture / Unknown 03/21/2024 9:59 AM EST 03/21/2024 9:59 AM EST Tarsha Young Maggi BENZENE STILL UTILITY OPERATOR CHEMISTRY ORDERABLES [facility] [place] [address] * Comprehensive metabolic panel (03/21/2024 9:59 AM EST) Glucose 101 65 - 199 mg/dL 03/21/2024 11:05 AM [facility] Comment:Glucose Concentratio n >=200 mg/dL plus symptoms is consistent with Diabetes Mellitus. Blood Urea Nitrogen 17 8 - 18 mg/dL 03/21/2024 11:05 AM [facility] Creatinine 0.99 0.70 - 1.20 mg/dL 03/21/2024 11:05 AM [facility] Sodium 141 135 - 145 mMol/L 03/21/2024 11:05 AM [facility] Potassium 4.2 3.5 - 5.0 mMol/L 03/21/2024 11:05 AM [facility] Chloride 104 98 - 107 mMol/L 03/21/2024 11:05 AM [facility] Carbon Dioxide 29 22 - 31 mMol/L 03/21/2024 11:05 AM [facility] Anion Gap 8 5 - 15 mMol/L 03/21/2024 11:05 AM [facility] Calcium 9.1 8.5 - 10.5 mg/dL 03/21/2024 11:05 AM [facility] Protein, Total 7.0 6.1 - 8.0 g/dL 03/21/2024 11:05 AM [facility] Albumin 4.1 3.2 - 5.2 g/dL 03/21/2024 11:05 AM EST [facility] Aspartate Aminotransferase 25 <=30 unit/L 03/21/2024 11:05 AM [facility] Alanine Aminotransferase 21 0 - 30 unit/L 03/21/2024 11:05 AM [facility] Alkaline Phosphatase 63 35 - 105 unit/L 03/21/2024 11:05 AM [facility] Bilirubin, Total 0.9 <=1.3 mg/dL 03/21/2024 11:05 AM [facility] Est Glomerular Filtration Rate - Female 62 mL/min/1. 73 m?? 03/21/2024 11:05 AM [facility] Comment: This patient's estimated GFR was calculated using the 2020 CKD-EPI equation. The estimated GFR can vary from the measured GFR by up to 30% in the absence of rapidly changing kidney function. Assessment of the estimated GFR is not appropriate when creatinine concentrations are rapidly changing. For clinical situations in which a more precise estimate of GFR is necessary, consider alternative methods of GFR estimation such as a 24-hour urine creatinine clearance. Assignment of CKD stage 1 - 5 for patients with an eGFR near the transition point between stages may be based on clinical assessment of muscle mass and symptoms in addition to eGFR. Link: eGFR Calculator [employer] Fasting Status No 03/21/2024 11:05 AM [facility] Blood VENOUS BLOOD SPECIMEN / Unknown Venipuncture / Unknown 03/21/2024 9:59 AM EST 03/21/2024 9:59 AM EST Tarsha Tay BENZENE STILL UTILITY OPERATOR CHEMISTRY ORDERABLES [facility] [place] [address] documented in this encounter Visit Diagnoses Diagnosis Persistent atrial fibrillation Atrial fibrillation On amiodarone therapy Persistent atrial fibrillation Atrial fibrillation Persistent atrial fibrillation Atrial fibrillation documented in this encounter
--- OUTSIDE RECORDS SUMMARY | 2024-04-26 11:14 | XMS_ITS | Encounter Summary ---
[place] [address] Care Team Providers Care Gut Sorter Name Role Phone Unavailable Primary Care Provider Unavailabl e Reason for Visit * Reason Onset Date Comments Pre Procedure Call 03/17/2024 Encounter Details Date Type Department Care Team (Late st Contact Info) Description 03/17/2024 Telephone Cardiology at [address] [phone] Alicia Gracia, RN Pre Procedure Call Social History Tobacco Use Types Packs/Day Years Used Date Smoking Tobacco: Never Smokeless Tobacco: Never Sex and Gender Information Value Date Recorded Sex Assigned at Female 11/19/2023 9:55 AM EDT Gender Identity Female 11/19/2023 9:55 AM EDT Sexual Orientation Not on file documented as of this encounter Miscellaneous Notes * Telephone Encounter - Alicia Gracia RN - 03/17/2024 9:19 AM EDTSummary: Pre Procedure Instructions: Cardioversion EP RN CARDIOVERSION/DRUG LOAD CHECKLIST Patient Name: Allie Dunaway Patient Providers: Pasquale Cai / Denzel Moreno Date Scheduled: 03/21/24 Arrival Time/ Case Time: 10:00 am labs / 11:00 am appt / 12:15 pm CV Date Patient was Called: 03/17/24 Procedure: Cardioversion Med Instructions: BB/CCB - hold metoprolol the AM of procedure Anticoag Type: Eliquis (apixaban) - confirmed pt taking appropriately & no missed doses within past 21 days DM: N/A Coming from an assisted living facility?: N/A Other Instructions: Clear liquids (water, apple juice, velma jeri, black coffee/tea) OK up until 2 hrs prior to procedure. NPO after midnight. Understands that feeder driver is needed to transport them upon discharge. documented in this encounter Plan of Treatment Upcoming Encounters Date Type Department Care Team (Latest Contact Info) Description 07/20/2024 7:30 AM EST Hospital Encounter [place] [address] Denzel Moreno MD [facility] [place] [address] Persistent atrial fibrillation 07/27/2024 7:30 AM EDT - 07/27/2024 12:00 PM EDT Surgery [place] [address] Denzel Moreno MD [facility] [place] [address] ELECTROPHYSIOLOGY PROCEDURE Scheduled Procedures Name Priority Associated Diagnoses Date/Ti me ELECTROPHYSIOLOGIC EVALUATIO N INCLUDING TRANSSEPTAL CATHETERIZATIONS; INSERTION AND REPOSITIONING OF MULTIPLE ELECTRODE CATHETERS (WRVU 17) Persistent atrial fibrillation 07/27/2024 7:30 AM EDT documented as of this encounter Visit Diagnoses Not on filedocumented in this encounter
--- OUTSIDE RECORDS SUMMARY | 2024-04-26 11:14 | XMS_ITS | Encounter Summary ---
Author Organization [facility] [place] [address] Care Team Providers Care Aluminum Sheet Cutter Name Role Phone Unavailable Primary Care Provider Unavailabl e Reason for Referral * Consultation (Routine) - Closed Specialty Diagnoses / Procedures Referred By Contac t Referred To Contact Cardiology Diagnoses Persistent atrial fibrillation Tarsha Tay APRN [facility] [place] [address] [facility] Cardiology [address] [place] [phone] Referral ID Status Reason Start Date Expiration Date V isits Requested Visits Authorized [id number] Closed Consult, Test & Treat 03/10/2024 03/10/2025 1 1 Encounter Details Date Type Department Care Team (Late st Contact Info) Description 03/10/2024 Orders Only Cardiology at [address] [phone] Tarsha Tay APRN [facility] [place] [address] Persistent atrial fibrillation Social History Tobacco Use [...] AM EST Hospital Encounter [place] [address] Denzel Moreno MD [facility] [place] [address] Persistent atrial fibrillation 07/27/2024 7:30 AM EDT - 07/27/2024 12:00 PM EDT Surgery [place] [address] Denzel Moreno MD [facility] [place] [address] ELECTROPHYSIOLOGY PROCEDURE Scheduled Procedures Name Priority Associated Diagnoses Date/Ti me ELECTROPHYSIOLOGIC EVALUATIO N INCLUDING TRANSSEPTAL CATHETERIZATIONS; INSERTION AND REPOSITIONING OF MULTIPLE ELECTRODE CATHETERS (WRVU 17) Persistent atrial fibrillation 07/27/2024 7:30 AM EDT Scheduled Referrals Name Type Priority Associated Diagnoses Order Schedule Referral to Cardiac Electrophysiology Outpatient Referral Routine Persistent atrial fibrillation Ordered: 03/10/2024 documented as of this encounter Visit Diagnoses Diagnosis Persistent atrial fibrillation Atrial fibrillation Persistent atrial fibrillation Atrial fibrillation Persistent atrial fibrillation Atrial fibrillation documented in this encounter
--- OUTSIDE RECORDS SUMMARY | 2024-04-26 11:14 | XMS_ITS | Encounter Summary ---
Author Organization [facility] [place] [address] Care Team Providers Care Six Pack Loader Operator Name Role Phone Haley Leyva APRN Primary Care Provider +1- [phone] Encounter Details Date Type Department Care Team (Latest Contact Info) Description 03/21/2024 Travel Social History Tobacco Use Types Packs/Day Years Used Date Smoking Tobacco: Never Smokeless Tobacco: Never Alcohol Use Standard Drinks/Week Comments Not Currently 0 (1 standard drink = 0.6 oz pur e alcohol) [facility] Inpatient Questions Answer Date Recorded Does [...] AM EST Hospital Encounter [place] [address] Denzel Moreno MD [facility] [place] [address] Persistent atrial fibrillation 07/27/2024 7:30 AM EDT - 07/27/2024 12:00 PM EDT Surgery [place] [address] Denzel Moreno MD [facility] [place] [address] ELECTROPHYSIOLOGY PROCEDURE Scheduled Procedures Name Priority Associated Diagnoses Date/Ti me ELECTROPHYSIOLOGIC EVALUATIO N INCLUDING TRANSSEPTAL CATHETERIZATIONS; INSERTION AND REPOSITIONING OF MULTIPLE ELECTRODE CATHETERS (WRVU 17) Persistent atrial fibrillation 07/27/2024 7:30 AM EDT documented as of this encounter Visit Diagnoses Not on filedocumented in this encounter Care Teams Six Pack Loader Operator Relationship Specialty Start Date End Date Haley Leyva APRN [address] [place] [phone] PCP - General Family Medicine 03/21/24 documented as of this encounter
--- OUTSIDE RECORDS SUMMARY | 2024-04-26 11:14 | XMS_ITS | Encounter Summary ---
Author Organization [facility]ly [facility] [place] [address] Care Team Providers Care Intelligence Senior Sergeant Name Role Phone SinhsaraHaley APRN Primary Care Provider +1- [phone] Reason for Visit * Auth/Cert (Routine) Specialty Diagnoses / Procedures Referred By Contac t Referred To Contact Diagnoses Longstanding persistent atrial fibrillation persistent atrial fibrillation Procedures PRO CARDIOVERSION ELECTIVE ARRHYTHMIA EXTERNAL CARDIOVERSION-ELECTIVE (WRVU 2) Sohail Gutierrez MD [facility] [place] [address] [facility] Referral ID Status Reason Start Date Expiration Date Visits Re quested Visits Authorized [id number] 1 1 Encounter Details Date Type Department Care Team (Late st Contact Info) Description 03/21/2024 11:00 AM EST Office Visit Cardiology at [address] [phone] Pasquale Cai PA [facility] [place] [address] Persistent atrial fibrillation Social History Tobacco Use Types Packs/Day Years Used Date Smoking Tobacco: Never Smokeless Tobacco: Never Alcohol Use Standard Drinks/Week Comments Not Currently 0 (1 standard drink = 0.6 oz pur e alcohol) [facility] Inpatient Questions Answer Date Recorded Does [...] Sign Reading Time Taken Comments Blood Pressure 129/80 03/21/2024 10:39 AM EST Pulse 77 03/21/2024 10:39 AM EST Temperature - - Respiratory Rate - - Oxygen Saturation 98% 03/21/2024 10:39 AM EST Inhaled Oxygen Concentration - - Weight 70.3 kg (155 lb) 03/21/2024 10:39 AM EST Height 172.7 cm (5' 8) 03/21/2024 10:39 AM EST Body Mass Index 23.57 03/21/2024 10:39 AM EST documented in this encounter Progress Notes * Pasquale Cai PA - 03/21/2024 11:00 AM EST Images from the original note were not included. Day of Cardioversion History and Physical Subjective: Patient ID: Allie Dunaway is a 68 y.o. female. CC: Presents for pre-cardioversion evaluation HPI: 68 y.o. female with a hx of PAF, incompletely controlled on flecainide(now discontinued), who has been in persistent AF for months, now on amiodarone(~2 months), referred by Josefina Tay APRN for DC cardioversion. She had been seen in the past by Dr. Spencer in [place], [place] and underwent a previous cardioversion last year that lasted about two weeks. She is on uninterrupted apixaban anticoagulation for >21 days and took her morning dose today. She also takes metoprolol succinate 50mg which she held this morning. She has been NPO except for meds since before midnight. 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 Medications 03/21/24 1129 Medication Sig Taking? AMIOdarone (Pacerone) 200 mg tablet Take 1 tablet by mouth 2 times daily for 14 days, THEN 1 tabletdaily for 85 days. Take with food Yes Eliquis 5 mg tablet Take 5 mg by mouth 2 times daily. Yes metoprolol succinate XL (Toprol-XL) 50 mg ER 24 hr tablet Take 1 tablet by mouth daily. Yes Allergies Allergies Allergen Reactions Opioids - Morphine Analogues Stomach cramps, lightheaded, and nausea Objective: Vitals: Vitals: 03/21/24 1039 BP: 129/80 Pulse: 77 SpO2: 98% Weight: 70.3 kg (155 lb) Height: 172.7 cm (5' 8) Physical Exam: General- No acute distress, sitting comfortably in exam room chair Skin- Warm and dry Cardiovascular- S1/S2; irregular rate and rhythm. No murmur, rub or gallop Lungs- Clear bilaterally Extremities- Pulses equal bilaterally. No edema noted Neuro- A&Ox3 ECG in office today shows atrial fibrillation @ 70; QRS 90; QTc 466ms Lab data: Recent Labs 03/21/24 0959 NA 141 K 4.2 CL 104 CO2 29 BUN 17 CREATININE 0.99 GLUCOSE 101 Anticoagulation: Apixaban Echocardiogram: 02/23/2023 LVEF 65%; LA severely dilated; RA mildly dilated Moderate MR,moderate TR Assessment and Plan: 68 y.o. woman with PAF, now persistent, commenced on amiodarone(Rosalind Tay APRN) about two months ago and on uninterrupted apixaban anticoagulation. No contraindication to planned cardioversion today. Plan: 1. The cardioversion procedure was discussed and questions answered. We discussed possible risks including but not limited to: skin irritation or guerrero, bradycardia or rhythm abnormalities(arrythmia), stroke(CVA), aspiration, cardiac arrest. Written consent was obtained and scanned. 2. Code Status: FULL CODE 3. Patient to proceed to Same Day Program 4. Follow up will be dependent on the results of the cardioversion. Provider: ANGELICA Barnhart EP Consult attending physician: Froylan Moreno MD EP Consult positional pager #[phone](EPMD) EP Device interrogation positional pager # [phone] documented in this encounter Plan of Treatment Upcoming Encounters Date Type Department Care Team (Latest Contact Info) Description 07/20/2024 7:30 AM EST Hospital Encounter [place] [address] Denzel Moreno MD [facility] [place] [address] Persistent atrial fibrillation 07/27/2024 7:30 AM EDT - 07/27/2024 12:00 PM EDT Surgery [place] [phone] Denzel Moreno MD [facility] [place] [address] ELECTROPHYSIOLOGY PROCEDURE Scheduled Procedures Name Priority Associated Diagnoses Date/Ti me ELECTROPHYSIOLOGIC EVALUATIO N INCLUDING TRANSSEPTAL CATHETERIZATIONS; INSERTION AND REPOSITIONING OF MULTIPLE ELECTRODE CATHETERS (WRVU 17) Persistent atrial fibrillation 07/27/2024 7:30 AM EDT documented as of this encounter Procedures Procedure Name Priority Date/Time Associated Diagnosis Comments EKG 12-LEAD Routine 03/21/2024 10:50 AM EST Persistent atrial fibrillation documented in this encounter Results * EKG 12 Lead (03/21/2024 10:50 AM EST) Ventricular rate 70 BPM MUSE SYSTEM QRS Duration 90 ms MUSE SYSTEM Q-T Interval 432 ms MUSE SYSTEM QTC Calculated (Bezet) 466 ms MUSE SYSTEM Calculated R Verner 7 degrees MUSE SYSTEM Calculated T Verner 34 degrees MUSE SYSTEM INTERPRETATION Atrial fibrillation Abnormal ECG When compared with ECG of 24-NOV-2023 15:42, No significant change was found Confirmed by MD Sam, Manuel ([id number]) on 03/21/2024 5:13:12 PM MUSE SYSTEM 03/21/2024 10:5 0 AM EST 03/21/2024 5:13 PM EST Denzel Moreno MD ECG ORDERABLES [employer] SYSTEM documented in this encounter Visit Diagnoses Diagnosis Persistent atrial fibrillation Atrial fibrillation Persistent atrial fibrillation Atrial fibrillation Persistent atrial fibrillation Atrial fibrillation documented in this encounter Care Teams Intelligence Senior Sergeant Relationship Specialty Start Date End Date Haley Leyva APRN [address] [place] [id number] PCP - General Family Medicine 03/21/24 documented as of this encounter
--- OUTSIDE RECORDS SUMMARY | 2024-04-26 11:14 | XMS_ITS | Encounter Summary ---
Author Organization [facility] [place] [address] Care Team Providers Care Clinical Quality Analyst Name Role Phone Unavailable Primary Care Provider Unavailabl e Encounter Details Date Type Department Care Team (Late st Contact Info) Description 12/03/2023 Orders Only Cardiology at [address] [phone] Tarsha Tay APRN [facility] [place] [address] Persistent atrial fibrillation Social History Tobacco Use Types Packs/Day Years Used Date Smoking Tobacco: Never Smokeless Tobacco: Never Sex and Gender Information Value Date Recorded Sex Assigned at Female 11/19/2023 9:55 AM EDT Gender Identity Female 11/19/2023 9:55 AM EDT Sexual Orientation Not on file documented as of this encounter Progress Notes * Tarsha Tay APRN - 12/03/2023 4:06 PM EDT Reviewed recent scanned results from outside facility. Only recent lab result I see is a normal vitamin D level. Orders placed for CMP, TSH cascade as external to be done at her facility of choice. Need verification of scheduled testing for PFT and sleep medicine referral. After results of labs, will discuss potential amiodarone for persistent atrial fibrillation, with eye toward cardioversion after ~6 weeks. Continue Eliquis uninterrupted (with plan for rhythm control). Tarsha Tay APRN 12/03/2023 documented in this encounter Plan of Treatment Upcoming Encounters Date Type Department Care Team (Latest Contact Info) Description 07/20/2024 7:30 AM EST Hospital Encounter Electrophys[place] [address] Denzel Moreno MD [facility] [place] [address] Persistent atrial fibrillation 07/27/2024 7:30 AM EDT - 07/27/2024 12:00 PM EDT Surgery [place] [address] Denzel Moreno MD [facility] [place] [address] ELECTROPHYSIOLOGY PROCEDURE Scheduled Orders Name Type Priority Associated Diagnoses Orde r Schedule Comprehensive metabolic panel (non-fasting) Lab Routine Persistent atrial fibrillation Expected: 12/03/2023 (Approximate), Expires: 12/02/2024 [facility] Lab Routine Persistent atrial fibrillation Expected: 12/03/2023 (Approximate), Expires: 06/03/2024 Scheduled Procedures Name Priority Associated Diagnoses Date/Ti [...]
--- OUTSIDE RECORDS SUMMARY | 2024-04-26 11:14 | XMS_ITS | Encounter Summary ---
Author Organization [facility] [place] [address] Care Team Providers Care Executive Relations Specialist Name Role Phone Unavailable Primary Care Provider Unavailabl e Encounter Details Date Type Department Care Team (Late st Contact Info) Description 06/07/2023 Transcribe Orders Cardiology at [address] [phone] Alise Palacios Tachycardia, unspecified Social History Tobacco Use Types Packs/Day Years Used Date Smoking Tobacco: Never Assessed Sex and Gender Information Value Date Recorded Sex Assigned at Female 11/19/2023 9:55 AM EDT Gender Identity Female 11/19/2023 9:55 AM EDT Sexual Orientation Not on file documented as of this encounter Plan of Treatment Upcoming Encounters Date Type Department Care Team (Latest Contact Info) Description 07/20/2024 7:30 AM EST Hospital Encounter [place] [phone] Denzel Moreno MD [facility] [place] [address] Persistent atrial fibrillation 07/27/2024 7:30 AM EDT - 07/27/2024 12:00 PM EDT Surgery [place] [phone] Denzel Moreno MD [facility] [place] [address] ELECTROPHYSIOLOGY PROCEDURE Scheduled Procedures Name Priority Associated Diagnoses Date/Ti me ELECTROPHYSIOLOGIC EVALUATIO N INCLUDING TRANSSEPTAL CATHETERIZATIONS; INSERTION AND REPOSITIONING OF MULTIPLE ELECTRODE CATHETERS (WRVU 17) Persistent atrial fibrillation 07/27/2024 7:30 AM EDT documented as of this encounter Visit Diagnoses Diagnosis Tachycardia, unspecified Persistent atrial fibrillation Atrial fibrillation Persistent atrial fibrillation Atrial fibrillation documented in this encounter
--- OUTSIDE RECORDS SUMMARY | 2024-04-26 11:14 | XMS_ITS | Encounter Summary ---
Author Organization [facility] Address [facility] [place] [address] Care Team Providers Care Jet Dyeing Machine Operator Name Role Phone Haley Leyva VICKI Primary Care Provider +1- [phone] Reason for Visit * Reason Onset Date Comments Medication Refill 03/28/2024 Encounter Details Date Type Department Care Team (Late st Contact Info) Description 03/28/2024 Refill Cardiology at [address] [phone] Denzel Moreno MD [facility] [place] [address] Medication Refill Social History Tobacco Use Types Packs/Day Years Used Date Smoking Tobacco: Never Smokeless Tobacco: Never Alcohol Use Standard Drinks/Week Comments Not Currently 0 (1 standard drink = 0.6 oz pur e alcohol) [facility] Inpatient Questions Answer Date Recorded Does [...] (Latest Contact Info) Description 07/20/2024 7:30 AM [facility] Hospital Encounter [place] [address] Denzel Moreno MD [facility] [place] [address] Persistent atrial fibrillation 07/27/2024 7:30 AM EDT - 07/27/2024 12:00 PM EDT Surgery [place] [address] Denzel Moreno MD [facility] [place] [address] ELECTROPHYSIOLOGY PROCEDURE Scheduled Procedures Name Priority Associated Diagnoses Date/Ti me ELECTROPHYSIOLOGIC EVALUATIO N INCLUDING TRANSSEPTAL CATHETERIZATIONS; INSERTION AND REPOSITIONING OF MULTIPLE ELECTRODE CATHETERS (WRVU 17) Persistent atrial fibrillation 07/27/2024 7:30 AM EDT documented as of this encounter Visit Diagnoses Diagnosis Persistent atrial fibrillation Atrial fibrillation Persistent atrial fibrillation Atrial fibrillation Persistent atrial fibrillation Atrial fibrillation documented in this encounter Care Teams Jet Dyeing Machine Operator Relationship Specialty Start Date End Date Haley Leyva APRN [address] [place] [phone] PCP - General Family Medicine 03/21/24 documented as of this encounter
--- OUTSIDE RECORDS SUMMARY | 2024-04-26 11:14 | XMS_ITS | Encounter Summary ---
[place] [address] Care Team Providers Care Binding Cutter Name Role Phone Gordon Haley H VICKI Primary Care Provider +1- [phone] Reason for Visit * Auth/Cert (Routine) Specialty Diagnoses / Procedures Referred By Contac t Referred To Contact Diagnoses Longstanding persistent atrial fibrillation persistent atrial fibrillation Procedures PRO CARDIOVERSION ELECTIVE ARRHYTHMIA EXTERNAL CARDIOVERSION-ELECTIVE (WRVU 2) Sohail Gutierrez MD [facility] [place] [address] [facility] Referral ID Status Reason Start Date Expiration Date Visits Re quested Visits Authorized [id number] 1 1 Encounter Details Date Type Department Care Team (Late st Contact Info) Description 03/21/2024 12:45 PM EST Anesthesia Event [place] [id number] Sachin Omer MD [facility] [place] [address] Sarah Beth Webb CRNA [facility] [place] [address] Anesthesia Record Procedure Summary Procedure Name Responsible Anesthesiologist Anesthesia Start Time Anesthesia Stop Time CARDIOVERSION-ELECT NORMA (WRVU 2) Sachin Omer MD 03/21/24 1245 03/21/24 1316 Events Date Time Event Comment 03/21/2024 1219 1245 AN Verify 1245 Start 1247 An Start Data 1252 Anesthesia Ready 1253 an jkaob now Shocked x1 200J . NSR with PAC 1312 an stop data 1316 Recovery or ICU Handoff Melian ent care was transferred to the destination unit staff after review of the patient's medical history, current anesthetic/surgical status and plan, according to the Provider Handoff Checklist. 1316 Stop Meds Name Total lidocaine IV 20 mg propofoL 80 mg lactated ringers 100 mL * Agents Name O2 Air N2O O2 Auxiliary Flowmeter 1 * Blood No blood administrations on file. Lines, Drains, and Airways Type Details Placement Removal PIV 03/21/24; 1237; ofhu-vno-rugxyb catheter system; 20 gauge; metacarpal vein (top of hand), right; Anatomical Landmarks; US Not Used; distraction; 03/21/24; 1435 03/21/24 1237 by Ashely Barros RN 03/21/24 1435 by Felicitas Booth, RN documented in this encounter Social History Tobacco Use Types Packs/Day Years Used Date Smoking Tobacco: Never Smokeless Tobacco: Never Alcohol Use Standard Drinks/Week Comments Not Currently 0 (1 standard drink = 0.6 oz pur e alcohol) DH IPV Inpatient Questions Answer Date Recorded Does Anyone [...] on file documented as of this encounter OR Notes * Anesthesia Postprocedure Evaluation - Sachin Omer MD - 03/21/2024 3:54 PM EST Department of Anesthesiology Post-procedure Note Patient: Allie Dunaway Procedure Summary Date: 03/21/24 Room / Location: [facility] / [facility] MA[facility] OR Anesthesia Start: 1245 Anesthesia Stop: 1316 Procedure: CARDIOVERSION-ELECTIVE (WRVU 2) Diagnosis: Longstanding persistent atrial fibrillation (persistent atrial fibrillation) Surgeons: Denzel Moreno MD Responsible Provider: Sachin Omer MD Anesthesia Type: MAC ASA Status: 3 All Anesthesia Providers: Anesthesiologist: Sachin Omer MD ADULT MANAGER: Sarah Beth Webb CRNA Vitals Value Taken Time BP 121/60 03/21/24 1415 Temp 36.4 ??C (97.5 ??F) 03/21/24 1415 Pulse Resp SpO2 99 % 03/21/24 1416 Pain Level Vitals shown include unfiled device data. Patient Location: PACU/[facility] Level of Consciousness: Awake and Alert Pain Management: Satisfactory Analgesia PONV: None Cardiovascular Status: At Baseline and Hemodynamically Stable Respiratory Status: At Baseline and Room Air Postoperative Fluid Status: Intravascular EUvolemia Possible Anesthetic Complications: NONE apparent at time of evaluation Final Primary Anesthesia Type: General (The anesthetic type performed was the same as planned.) Comments: SACHIN OMER MD * Anesthesia Preprocedure Evaluation - Sachin Omer MD - 03/21/2024 10:54 AM EST Pre-Anesthesia Evaluation for: Allie Dunaway a 68 y.o. female. 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 No past surgical history on file. Social History Tobacco Use Smoking status: Never Smokeless tobacco: Never Substance Use Topics Alcohol use: Not on file Social History Substance and Sexual Activity Drug Use Not on file Allergies Allergen Reactions Opioids - Morphine Analogues Stomach cramps, lightheaded, and nausea Medications: MAR and/or home medications have been reviewed. Physical Exam: Preprocedure Vitals Current as of 03/21/24 1054 BP: 129/80 Pulse: 77 Resp: SpO2: 98 Temp: Height: 172.7 cm (5' 8) (03/21/24) Weight: 70.3 kg (155 lb) (03/21/24) BMI: 23.57 IBW: 63.9 kg (140 lb 13.3 oz) Last edited 03/21/24 1039 by ALEXUS Airway Assessment: Mallampati: II TM distance: >3 FB Cardiovascular Assessment: Rhythm: irregular Rate: normal Pulmonary Assessment: unlabored breathing Dental Assessment: - normal exam Misc Assessment: Last Filed Perioperative Cognitive Screening None Anesthesia Plan: ASA 3 MAC, with a(n) intravenous induction 67 y.o. with medical history significant for persistent atrial fibrillation, atrial septal defect/repair 09/18/1974, previously on flecainide (stopped 04/07/2023), on Eliquis, metoprolol succinate 50 mg who presents for cardioversion. Echo: 11/27/21. LVEF 59%, AFib throughout the study with controlled ventricular rates. Severe LA enlargement. Mid to moderate mitral regurgitation. Mild tricuspid regurgitation. Stress echo 02/23/2023: LVEF 65%. normal augmentation at peak exercise. Severe LA (PUMA 67). Moderate MR, moderate TR. Region - Other Informed Consent: Anesthetic plan and risks discussed with patient. Plan discussed with ADULT MANAGER. Anesthesia Screening documented in this encounter Plan of Treatment Upcoming Encounters Date Type Department Care Team (Latest Contact Info) Description 07/20/2024 7:30 AM EST Hospital Encounter [place] [address] Denzel Moreno MD [facility] [place] [address] Persistent atrial fibrillation 07/27/2024 7:30 AM EDT - 07/27/2024 12:00 PM EDT Surgery [place] [address] Denzel Moreno MD [facility] [place] [address] ELECTROPHYSIOLOGY PROCEDURE Scheduled Procedures Name Priority Associated Diagnoses Date/Ti me ELECTROPHYSIOLOGIC EVALUATIO N INCLUDING TRANSSEPTAL CATHETERIZATIONS; INSERTION AND REPOSITIONING OF MULTIPLE ELECTRODE CATHETERS (WRVU 17) Persistent atrial fibrillation 07/27/2024 7:30 AM EDT documented as of this encounter Visit Diagnoses Not on filedocumented in this encounter Administered Medications Inactive Administered Medications - up to 3 most recent administrations Medication Order MAR Action Action Date Dose Rate Site lactated ringers infusion Intravenous, CONTINUOUS PRN, Starting on Wed03/21/24 at 1245, Until Wed03/21/24 at 1318, Anesthesia Intra-op New Bag 03/21/2024 12:45 PM EST lidocaine (pf) (Xylocaine) (20 mg/mL) 2% injection syringe Intravenous, PRN, Starting on Wed03/21/24 at 1248, Until Wed03/21/24 at 1318, Anesthesia Intra-op, Routine Given 03/21/2024 12:48 PM EST 20 mg propofoL (Diprivan) 10 mg/mL bolus injection (Anesthesia) Intravenous, PRN, Starting on Wed03/21/24 at 1252, Until Wed03/21/24 at 1318, Anesthesia Intra-op Given 03/21/2024 12:52 PM EST 80 mg documented in this encounter Care Teams Binding Cutter Relationship Specialty Start Date End Date Haley Leyva APRN [address] [place] [id number] PCP - General Family Medicine 03/21/24 documented as of this encounter
--- OUTSIDE RECORDS SUMMARY | 2024-04-26 11:14 | XMS_ITS | Encounter Summary ---
Author Organization [facility] [place] [address] Care Team Providers Care Drum Attendant Name Role Phone Haley Leyva APRN Primary Care Provider +1- [phone] Reason for Referral * Consultation (Routine) - Authorized Specialty Diagnoses / Procedures Referred By Contact Referred To Contact Electrophysiology / Cardiology Diagnoses Persistent atrial fibrillation request PVI ablation with history of ASD repair, procedural discussion with EP . Tarsha Tay APRN [facility] [place] [address] [facility] Cardiology [address] [place] [id number] Referral ID Status Reason Start Date Expiration Date Visits Requested Visits Authorized [id number] Authorized Consult, Test & Treat 03/30/2024 03/30/2025 1 1 Encounter Details Date Type Department Care Team (Late st Contact Info) Description 03/30/2024 Orders Only Cardiology at [address] [address] Tarsha Tay APRN [facility] [place] [address] Persistent atrial fibrillation Social History Tobacco Use Types Packs/Day Years Used Date Smoking Tobacco: Never Smokeless Tobacco: Never Alcohol Use Standard Drinks/Week Comments Not Currently 0 (1 standard drink = 0.6 oz pur e alcohol) IPV Inpatient Questions Answer Date Recorded Does [...] AM EST Hospital Encounter [place] [phone] Denzel Moreno MD [facility] [place] [address] Persistent atrial fibrillation 07/27/2024 7:30 AM EDT - 07/27/2024 12:00 PM EDT Surgery [place] [address] Denzel Moreno MD [facility] [place] [address] ELECTROPHYSIOLOGY PROCEDURE Scheduled Procedures Name Priority Associated Diagnoses Date/Ti me ELECTROPHYSIOLOGIC EVALUATIO N INCLUDING TRANSSEPTAL CATHETERIZATIONS; INSERTION AND REPOSITIONING OF MULTIPLE ELECTRODE CATHETERS (WRVU 17) Persistent atrial fibrillation 07/27/2024 7:30 AM EDT Scheduled Referrals Name Type Priority Associated Diagnoses Order Schedule Referral to Cardiac Electrophysiology Outpatient Referral Routine Persistent atrial fibrillation Ordered: 03/30/2024 documented as of this encounter Visit Diagnoses Diagnosis Persistent atrial fibrillation Atrial fibrillation Persistent atrial fibrillation Atrial fibrillation Persistent atrial fibrillation Atrial fibrillation documented in this encounter Care Teams Drum Attendant Relationship Specialty Start Date End Date Haley Leyva APRN [address] [place] [address] PCP - General Family Medicine 03/21/24 documented as of this encounter
--- OUTSIDE RECORDS SUMMARY | 2024-04-26 11:14 | XMS_ITS | Clinical Summary ---
Author Organization [facility] [place] [address] Care Team Providers Care Foreign Diplomat Name Role Phone Haley Leyva APRN Primary Care Provider +1- [phone] Allergies Active Allergy Reactions Criticality Noted Date Comments Opioids - Morphine Analogues 11/24/2023 Stomach cramps, lightheaded, and nausea Medications Medication Sig Dispensed Refills Start Date End Date Status Eliquis 5 mg tablet Take 5 mg by mouth 2 times daily. 09/03/2022 Active metoprolol succinate XL (Toprol-XL) 50 mg ER 24 hr tablet Take 1 tablet by mouth daily. 09/04/2022 Active AMIOdarone (Pacerone) 200 mg tabletIndications:Pers istent atrial fibrillation Take 1 tablet by mouth daily. 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 11/24/2023 Vitamin D deficiency 11/24/2023 Acquired hallux valgus of right foot 05/27/2021 Encounters Date Type Department Care Team Description 03/30/2024 Orders Only Cardiology at [address] [address] Tarsha Tay APRN Persistent atrial fibrillation 03/28/2024 Refill Cardiology at [address] [address] Denzel Moreno MD Medication Refill 03/21/2024 12:45 PM EST Anesthesia Event Main Operating Room [place] [phone] Sachin Slaughter MD Andrews, Mary K, CRNA 03/21/2024 12:45 PM EST - 03/21/2024 1:15 PM EST Surgery Main Operating Room [place] [phone] Denzel Moreno MD CARDIOVERSION-ELECTI VE (WRVU 2) 03/21/2024 11:13 AM EST - 03/21/2024 2:36 PM EST Hospital Encounter Same Day Program at [place] [phone] Denzel Moreno MD Longstanding persistent atrial fibrillation Discharge Disposition: Home 03/21/2024 11:00 AM EST Office Visit Cardiology at [address] [address] Pasquale Cai PA Persistent atrial fibrillation 03/21/2024 9:45 AM EST Laboratory Appointment Lab [address] [place] [phone] Persistent atrial fibrillation; On amiodarone therapy 03/21/2024 Orders Only Cardiology at [address] [address] Denzel Moreno MD Persistent atrial fibrillation 03/21/2024 Travel 03/17/2024 Telephone Cardiology at [address] [address] Alicia Gracia RN Pre Procedure Call 03/10/2024 Orders Only Cardiology at [address] [phone] Tarsha Tay APRN Persistent atrial fibrillation 03/10/2024 Orders Only Cardiology at [address] [phone] Tarsha Tay APRN Persistent atrial fibrillation 02/05/2024 Orders Only Cardiology at [address] [address] Tarsha Tay APRN Persistent atrial fibrillation from Last 3 Months Social History Tobacco Use Types Packs/Day Years Used Date Smoking Tobacco: Never Smokeless Tobacco: Never Tobacco Cessation:Counseling Given: Not Answered Alcohol Use Standard Drinks/Week Comments Not Currently 0 (1 standard drink = 0.6 oz pur e alcohol) [facility] Inpatient Questions Answer Date Recorded Does Anyone [...] AM EDT Sexual Orientation Not on file Last Filed Vital Signs Vital Sign Reading [...] Mass Index 24.31 03/21/2024 11:54 AM EST Plan of Treatment Upcoming Encounters Date Type Department Care Team (Latest Contact Info) Description 07/20/2024 7:30 AM EST Hospital Encounter [place] [address] Denzel Moreno MD [facility] [place] [address] Persistent atrial fibrillation 07/27/2024 7:30 AM EDT - 07/27/2024 12:00 PM EDT Surgery [place] [address] Denzel Moreno MD [facility] [place] [address] ELECTROPHYSIOLOGY PROCEDURE Scheduled Procedures Name Priority Associated Diagnoses Date/Ti me ELECTROPHYSIOLOGIC EVALUATIO N INCLUDING TRANSSEPTAL CATHETERIZATIONS; INSERTION AND REPOSITIONING OF MULTIPLE ELECTRODE CATHETERS (WRVU 17) Persistent atrial fibrillation 07/27/2024 7:30 AM EDT Health Maintenance Due Date Last Done Comments CT Colonography 1954 Colonoscopy 1954 Colorectal Cancer Screening 1954 FIT DNA 1954 FIT 1954 Sigmoidoscopy (10 year) with FIT yearly 1954 Sigmoidoscopy 1954 Hepatitis C Screening 1972 Tetanus/Diphtheria/Pertussis Vaccines (1 - Tdap) 12/10 Breast Cancer Share Decision Needed 1994 Breast Cancer screening 1994 Zoster vaccine (1 of 2) 2004 Advance Directive 2009 Bone Density Scan 12/11/2019 Pneumoccocal Vaccine: 65+ (1 of 1 - PCV) 12/11/2019 Covid-19 Vaccine (1 - season) 2024 Influenza (Flu) vaccine (1 o f 1 - Influenza standard series) 01/16/2024 Procedures Procedure Name Priority Date/Time Associated Diagnosis Comments Cardioversion Elective Arrhythmia External (27733) 03/21/2024 12:46 PM EST Longstanding persistent atrial fibrillation CARDIOVERSION-OR Routine 03/21/2024 11:4 4 AM EST Longstanding persistent atrial fibrillation EKG 12-LEAD Routine 03/21/2024 10:50 AM EST Persistent atrial fibrillation COMPREHENSIVE METABOLIC PANEL STAT 03/21/2024 9:59 AM EST Persistent atrial fibrillation On amiodarone therapy TSH CASCADE Routine 03/21/2024 9:59 AM EST Persistent atrial fibrillation On amiodarone therapy ECG SCAN 03/16/2024 12:00 AM EDT from Last 3 Months Results * EKG 12 Lead (03/21/2024 10:50 AM EST) Ventricular rate 70 BPM MUSE SYSTEM QRS Duration 90 ms MUSE SYSTEM Q-T Interval 432 ms MUSE SYSTEM QTC Calculated (Bezet) 466 ms MUSE SYSTEM Calculated R [place] 7 degrees MUSE SYSTEM Calculated T [place] 34 degrees MUSE SYSTEM INTERPRETATION Atrial fibrillation Abnormal ECG When compared with ECG of 24-NOV-2023 15:42, No significant change was found Confirmed by MD Sam, Manuel ([id number]) on 03/21/2024 5:13:12 PM MUSE SYSTEM 03/21/2024 10:5 0 AM EST 03/21/2024 5:13 PM EST Denzel Moreno MD ECG ORDERABLES Performing Organization Address City/[facility]/ZIP Co de Phone Number MUSE SYSTEM * TSH [place] (03/21/2024 9:59 AM EST) Thyroid Stimulating Hormone 2.85 0.27 - 4.20 mcIU/mL 03/21/2024 11:05 AM EST [facility] Comment: Reference Interval (mcIU/mL): ?? Females: ? First Trimester: 0.23-3.88 ? Second Trimester: 0.22-3.90 ? Third Trimester: 0.44-4.66 Blood VENOUS BLOOD SPECIMEN / Unknown Venipuncture / Unknown 03/21/2024 9:59 AM EST 03/21/2024 9:59 AM EST Tarsha Tay APRN CHEMISTRY ORDERABLES [facility] [place] [address] * Comprehensive metabolic panel (03/21/2024 9:59 AM EST) Glucose 101 65 - 199 mg/dL 03/21/2024 11:05 AM [facility] Comment:Glucose Concentratio n >=200 mg/dL plus symptoms is consistent with Diabetes Mellitus. Blood Urea Nitrogen 17 8 - 18 mg/dL 03/21/2024 11:05 AM [facility] Creatinine 0.99 0.70 - 1.20 mg/dL 03/21/2024 11:05 AM [facility] Sodium 141 135 - 145 mMol/L 03/21/2024 11:05 AM [facility] Potassium 4.2 3.5 - 5.0 mMol/L 03/21/2024 11:05 AM [facility] Chloride 104 98 - 107 mMol/L 03/21/2024 11:05 AM [facility] Carbon Dioxide 29 22 - 31 mMol/L 03/21/2024 11:05 AM [facility] Anion Gap 8 5 - 15 mMol/L 03/21/2024 11:05 AM [facility] Calcium 9.1 8.5 - 10.5 mg/dL 03/21/2024 11:05 AM [facility] Protein, Total 7.0 6.1 - 8.0 g/dL 03/21/2024 11:05 AM [facility] Albumin 4.1 3.2 - 5.2 g/dL 03/21/2024 11:05 AM [facility] Aspartate Aminotransferase 25 <=30 unit/L 03/21/2024 11:05 AM [facility] Alanine Aminotransferase 21 0 - 30 unit/L 03/21/2024 11:05 AM [facility] Alkaline Phosphatase 63 35 - 105 unit/L 03/21/2024 11:05 AM [facility] Bilirubin, Total 0.9 <=1.3 mg/dL 03/21/2024 11:05 AM [facility] Est Glomerular Filtration Rate - Female 62 mL/min/1. 73 m?? 03/21/2024 11:05 AM [facility] Comment: This patient's estimated GFR was [...] Foundation Fasting Status No 03/21/2024 11:05 AM EST [facility] Blood VENOUS BLOOD SPECIMEN / Unknown Venipuncture / Unknown 03/21/2024 9:59 AM EST 03/21/2024 9:59 AM EST Tarsha Tay FISH HEADER CHEMISTRY ORDERABLES [facility] [place] [address] * Scan Doc: ECG (03/16/2024 12:00 AM EDT) Narrative 03/16/2024 12:00 AM EDT Ordered by an unspecified provider. Scanning Provider MEDIA MGR SCAN EXT O RDR/RSLT from Last 3 Months Care Teams Foreign Diplomat Relationship Specialty Start Date End Date Haley Leyva APRN [address] [place] [address] PCP - General Family Medicine 03/21/24
--- OUTSIDE RECORDS SUMMARY | 2024-04-26 11:14 | XMS_ITS | Encounter Summary ---
Author Organization [facility] [place] [address] Care Team Providers Care Head Of English Name Role Phone SinsharaHaley APRN Primary Care Provider +1- [phone] Reason for Visit * Auth/Cert (Routine) Specialty Diagnoses / Procedures Referred By Contac t Referred To Contact Diagnoses Longstanding persistent atrial fibrillation persistent atrial fibrillation Procedures PRO CARDIOVERSION ELECTIVE ARRHYTHMIA EXTERNAL CARDIOVERSION-ELECTIVE (WRVU 2) Sohail Gutierrez MD [facility] [place] [address] [facility] Referral ID Status Reason Start Date Expiration Date Visits Re quested Visits Authorized [id number] 1 1 Encounter Details Date Type Department Care Team (Latest Contact Info) Description 03/21/2024 9:45 AM EST Laboratory Appointment Lab [address] [place] [phone] Persistent atrial fibrillation; On amiodarone therapy Social [...] AM EST Hospital Encounter [place] [address] Denzel Moreno MD [facility] [place] [address] Persistent atrial fibrillation 07/27/2024 7:30 AM EDT - 07/27/2024 12:00 PM EDT Surgery [place] [address] Denzel Moreno MD [facility] [place] [address] ELECTROPHYSIOLOGY PROCEDURE Scheduled Procedures Name Priority Associated Diagnoses Date/Ti me ELECTROPHYSIOLOGIC EVALUATIO N INCLUDING TRANSSEPTAL CATHETERIZATIONS; INSERTION AND REPOSITIONING OF MULTIPLE ELECTRODE CATHETERS (WRVU 17) Persistent atrial fibrillation 07/27/2024 7:30 AM EDT documented as of this encounter Procedures Procedure Name Priority Date/Time Associated Diagnosis Comments TSH CASCADE Routine 03/21/2024 9:59 AM EST Persistent atrial fibrillation On amiodarone therapy COMPREHENSIVE METABOLIC PANEL STAT 03/21/2024 9:59 AM EST Persistent atrial fibrillation On amiodarone therapy documented in this encounter Results * Comprehensive metabolic panel (03/21/2024 9:59 AM EST) Glucose 101 65 - 199 mg/dL 03/21/2024 11:05 AM EST [facility] Comment:Glucose Concentratio n >=200 mg/dL plus symptoms is consistent with Diabetes Mellitus. Blood Urea Nitrogen 17 8 - 18 mg/dL 03/21/2024 11:05 AM EST [facility] Creatinine 0.99 0.70 - 1.20 mg/dL 03/21/2024 11:05 AM [facility] Sodium 141 135 - 145 mMol/L 03/21/2024 11:05 AM [facility] Potassium 4.2 3.5 - 5.0 mMol/L 03/21/2024 11:05 AM [facility] Chloride 104 98 - 107 mMol/L 03/21/2024 11:05 AM [facility] Carbon Dioxide 29 22 - 31 mMol/L 03/21/2024 11:05 AM [facility] Anion Gap 8 5 - 15 mMol/L 03/21/2024 11:05 AM [facility] Calcium 9.1 8.5 - 10.5 mg/dL 03/21/2024 11:05 AM [facility] Protein, Total 7.0 6.1 - 8.0 g/dL 03/21/2024 11:05 AM [facility] Albumin 4.1 3.2 - 5.2 g/dL 03/21/2024 11:05 AM [facility] Aspartate Aminotransferase 25 <=30 unit/L 03/21/2024 11:05 AM [facility] Alanine Aminotransferase 21 0 - 30 unit/L 03/21/2024 11:05 AM [facility] Alkaline Phosphatase 63 35 - 105 unit/L 03/21/2024 11:05 AM [facility] Bilirubin, Total 0.9 <=1.3 mg/dL 03/21/2024 11:05 AM [facility] Est Glomerular Filtration Rate - Female 62 mL/min/1. 73 m?? 03/21/2024 11:05 AM [facility] Comment: This patient's estimated GFR was [...] Fasting Status No 03/21/2024 11:05 AM EST [facility] Blood VENOUS BLOOD SPECIMEN / Unknown Venipuncture / Unknown 03/21/2024 9:59 AM EST 03/21/2024 9:59 AM EST Tarsha Tay APRN CHEMISTRY ORDERABLES Performing Organization Address City/[facility]/ZIP Co de Phone Number [facility] [place] [address] * TSH Maverick (03/21/2024 9:59 AM EST) Thyroid Stimulating Hormone 2.85 0.27 - 4.20 mcIU/mL 03/21/2024 11:05 AM EST [facility] Comment: Reference Interval (mcIU/mL): ?? Females: ? First Trimester: 0.23-3.88 ? Second Trimester: 0.22-3.90 ? Third Trimester: 0.44-4.66 Blood VENOUS BLOOD SPECIMEN / Unknown Venipuncture / Unknown 03/21/2024 9:59 AM EST 03/21/2024 9:59 AM EST Tarsha Tay APRN CHEMISTRY ORDERABLES Performing Organization Address City/[facility]/ZIP Co de Phone Number [facility] [place] [address] documented in this encounter Visit Diagnoses Diagnosis Persistent atrial fibrillation Atrial fibrillation On amiodarone therapy Persistent atrial fibrillation Atrial fibrillation Persistent atrial fibrillation Atrial fibrillation documented in this encounter Care Teams Head Of English Relationship Specialty Start Date End Date Haley Leyva APRN [address] [place] [address] PCP - General Family Medicine 03/21/24 documented as of this encounter
--- OUTSIDE RECORDS SUMMARY | 2024-04-26 11:14 | XMS_ITS | Encounter Summary ---
Author Organization Formerly [facility] [place] [address] Care Team Providers Care Cardiology Rn Name Role Phone SinsharaJazminHaleyjayla Alas APRN Primary Care Provider +1- [phone] Reason for Visit * Auth/Cert (Routine) Specialty Diagnoses / Procedures Referred By Contac t Referred To Contact Diagnoses Longstanding persistent atrial fibrillation persistent atrial fibrillation Procedures PRO CARDIOVERSION ELECTIVE ARRHYTHMIA EXTERNAL CARDIOVERSION-ELECTIVE (WRVU 2) Sohail Gutierrez MD [facility] [place] [address] [facility] Referral ID Status Reason Start Date Expiration Date Visits Re quested Visits Authorized [id number] 1 1 Encounter Details Date Type Department Care Team (Late st Contact Info) Description 03/21/2024 12:45 PM EST - 03/21/2024 1:15 PM EST [place] [address] Denzel Moreno MD [facility] [place] [address] CARDIOVERSION-ELECTIVE (WRVU 2) Social History Tobacco Use Types Packs/Day Years Used Date Smoking Tobacco: Never Smokeless Tobacco: Never Alcohol Use Standard Drinks/Week Comments Not Currently 0 (1 standard drink = 0.6 oz pur e alcohol) [facility] Inpatient Questions Answer Date Recorded Does [...] Sign Reading Time Taken Comments Blood Pressure 118/72 03/21/2024 11:54 AM EST Pulse 67 03/21/2024 11:54 AM EST Temperature 36.4 ??C (97.5 ??F) 03/21/2024 1 1:54 AM EST Respiratory Rate 18 03/21/2024 11:5 4 AM EST Oxygen Saturation 99% 03/21/2024 11: 54 AM EST Inhaled Oxygen Concentration - - [...] the adhesive pads were placed, call the diamond setter bridge construction inspector at . We will schedule a follow-up appointment with the diamond setter here, or you will be scheduled to see your local doctor soon. Any specific instructions that apply to you will be given to you prior to discharge from the hospital. If you have any questions about this procedure, call: Cardiology Department [facility] Wednesday through Wednesday After hours and weekends 8:00 a.m. to 4:30 p.m. Ask for Cardiology Resident Ethernet Network Architect documented in this encounter Medications at [...] Operative Note Patient Name: Allie Dunaway : [id number] MR#: [id number] Case Date: 03/21/2024 Surgeon: Surgeons and Role: [...] entire procedure. Denzel Moreno MD 03/21/24 Cardiac Pin Inserter Regulator [facility] * Op Note - Denzel Moreno MD [...] Follow up with ERICK Ray MD Cardiac Pin Inserter Regulator 03/21/24 documented in this encounter Plan of Treatment Upcoming Encounters Date Type Department Care Team (Latest Contact Info) Description 07/20/2024 7:30 AM EST Hospital Encounter [place] [address] Denzel Moreno MD [facility] [place] [address] Persistent atrial fibrillation 07/27/2024 7:30 AM EDT - 07/27/2024 12:00 PM EDT Surgery [place] [address] Denzel Moreno MD [facility] [place] [address] ELECTROPHYSIOLOGY PROCEDURE Scheduled Procedures Name Priority Associated Diagnoses Date/Ti me ELECTROPHYSIOLOGIC EVALUATIO N INCLUDING TRANSSEPTAL CATHETERIZATIONS; INSERTION AND REPOSITIONING OF MULTIPLE ELECTRODE CATHETERS (WRVU 17) Persistent atrial fibrillation 07/27/2024 7:30 AM EDT documented as of this encounter Procedures Procedure Name Priority Date/Time Associated Diagnosis Comments Cardioversion Elective Arrhythmia External (70277) 03/21/2024 12:46 PM EST Longstanding persistent atrial [...] Visit Diagnoses Diagnosis Longstanding persistent atrial fibrillation Longstanding persistent atrial fibrillation Persistent atrial fibrillation Atrial fibrillation Persistent atrial fibrillation Atrial fibrillation documented in this encounter Care Teams Cardiology Rn Relationship Specialty Start Date End Date Haley Leyva APRN [address] [place] [address] PCP - General Family Medicine 03/21/24 documented as of this encounter
--- OUTSIDE RECORDS SUMMARY | 2024-04-26 11:14 | XMS_ITS | Encounter Summary ---
Author Organization [facility] [place] [address] Care Team Providers Care Ciaio Counter Molder Name Role Phone Unavailable Primary Care Provider Unavailabl e Encounter Details Date Type Department Care Team (Latest Contact Info) Description 11/24/2023 Travel Social History Tobacco Use Types Packs/Day [...] AM EST Hospital Encounter [place] [address] Denzel Moreno MD [facility] [place] [address] Persistent atrial fibrillation 07/27/2024 7:30 AM EDT - 07/27/2024 12:00 PM EDT Surgery [place] [address] Denzel Moreno MD [facility] [place] [address] ELECTROPHYSIOLOGY PROCEDURE Scheduled Procedures Name Priority Associated Diagnoses Date/Ti me ELECTROPHYSIOLOGIC EVALUATIO N INCLUDING TRANSSEPTAL CATHETERIZATIONS; INSERTION AND REPOSITIONING OF MULTIPLE ELECTRODE CATHETERS (WRVU 17) Persistent atrial fibrillation 07/27/2024 7:30 AM EDT documented as of this encounter Visit Diagnoses Not on filedocumented in this encounter
--- OUTSIDE RECORDS SUMMARY | 2024-04-26 11:14 | XMS_ITS | Encounter Summary ---
[place] [address] Care Team Providers Care Assistant Floor Covering Printer Name Role Phone Unavailable Primary Care Provider Unavailabl e Reason for Referral * Consultation (Routine) - Closed Specialty Diagnoses / Procedures Referred By Contact Referred To Contact Electrophysiology / Cardiology Diagnoses Tachycardia Tachycardia, unspecified. Bernabe Spencer MD [address] [place] [address] [facility] Cardiology [address] [place] [phone] Referral ID Status Reason Start Date Expiration Date V isits Requested Visits Authorized [id number] Closed Consult, Test & Treat PCP Updated and/or Approved 06/07/2023 06/06/2024 1 1 Encounter Details Date Type Department Care Team (Late st Contact Info) Description 06/07/2023 Transcribe Orders Cardiology at [address] [address] Bernabe Spencer MD [address] [place] [address] Tachycardia Social History Tobacco Use Types Packs/Day Years [...] AM EST Hospital Encounter Elect[place] [address] Denzel Moreno MD [facility] [place] [address] Persistent atrial fibrillation 07/27/2024 7:30 AM EDT - 07/27/2024 12:00 PM EDT Surgery [place] [address] Denzel Moreno MD [facility] [place] [address] ELECTROPHYSIOLOGY PROCEDURE Scheduled Procedures Name Priority Associated Diagnoses Date/Ti me ELECTROPHYSIOLOGIC EVALUATIO N INCLUDING TRANSSEPTAL CATHETERIZATIONS; INSERTION AND REPOSITIONING OF MULTIPLE ELECTRODE CATHETERS (WRVU 17) Persistent atrial fibrillation 07/27/2024 7:30 AM EDT Scheduled Referrals Name Type Priority Associated Diagnoses Order Schedule Referral to Cardiac Electrophysiology Outpatient Referral Routine Tachycardia Ordered: 06/07/2023 documented as of this encounter Visit Diagnoses Diagnosis Tachycardia Tachycardia, unspecified Persistent atrial fibrillation Atrial fibrillation Persistent atrial fibrillation Atrial fibrillation documented in this encounter
[2024-04-26 22:32] LABS: ALT 26 U/L (14-59); AST 30 U/L (15-37); Albumin 3.9 g/dL (3.4-5.0); Alkaline Phosphatase 59 U/L (46-116); Anion Gap 3.7 mmol/L (3-11); BUN 26 mg/dL (7-18); Bilirubin, Total 0.93 mg/dL (0.2-1.0); CO2 30.3 mmol/L (21.0-32.0); CREATININE 1.2 mg/dL (0.55-1.02); Calcium 9.3 mg/dL (8.5-10.1); Chloride 106 mmol/L (98-107); Glucose 80 mg/dL (74-106); Potassium 4.3 mmol/L (3.5-5.1); Sodium 140 mmol/L (136-145); Total Protein 7.3 g/dL (6.4-8.2)
== END 2024-04-26 10:56 | disposition home or self-care (01) ==
LOC: NCHCN 10:55
PROVIDERS: PCP Physician Assistant; Visit Provider Physician Assistant
DX: I48.91 Unspecified atrial fibrillation (principal)
CPT/HCPCS: 80053

== ENCOUNTER 2024-06-07 13:10 | Outpatient (REF) | payer MEDICARE, OTHER, SELFPAY ==
--- OUTSIDE RECORDS SUMMARY | 2024-06-07 13:12 | XMS_ITS | Encounter Summary ---
Author Organization [facility] [place] [address] Care Team Providers Care Cemetery Warden Name Role Phone Haley Leyva APRN Primary Care Provider +1- [phone] Reason for Referral * Consultation (Routine) - Authorized Specialty Diagnoses / Procedures Referred By Contact Referred To Contact Electrophysiology / Cardiology Diagnoses Persistent atrial fibrillation request PVI ablation with history of ASD repair, procedural discussion with EP . Tarsha Tay APRN [facility] [place] [address] [facility] [place] Cardiology [address] [place] [phone] Referral ID Status Reason Start Date Expiration Date Visits Requested Visits Authorized [id number] Authorized Consult, Test & Treat 03/30/2024 03/30/2025 1 1 Encounter Details Date Type Department Care Team (Late st Contact Info) Description 03/30/2024 Orders Only Cardiology at [address] [address] Tarsha Tay APRN [facility] [place] [address] Persistent atrial fibrillation Social History [...] Department Care Team (Latest Contact Info) Description 07/31/2024 7:30 AM EDT Hospital Encounter [place] [phone] Denzel Moreno MD [facility] [place] [address] Persistent atrial fibrillation 07/31/2024 10:30 AM EDT - 07/31/2024 3:00 PM EDT Surgery [place] [address] Denzel Moreno MD [facility] [place] [address] ELECTROPHYSIOLOGY PROCEDURE Scheduled Procedures Name Priority Associated Diagnoses Date/Ti me ELECTROPHYSIOLOGIC EVALUATIO N WITH TRANSSEPTAL CATHETERIZATIONS; INSERTION AND REPOSITIONING OF MULTIPLE ELECTRODE CATHETERS (WRVU 17) Persistent atrial fibrillation 07/31/2024 10:30 AM EDT Scheduled Referrals Name Type Priority Associated Diagnoses Order Schedule Referral to Cardiac Electrophysiology Outpatient Referral Routine Persistent atrial fibrillation Ordered: 03/30/2024 documented as of this encounter Visit Diagnoses Diagnosis Persistent atrial fibrillation Atrial fibrillation Persistent atrial fibrillation Atrial fibrillation Persistent atrial fibrillation Atrial fibrillation documented in this encounter Care Teams Cemetery Warden Relationship Specialty Start Date End Date Haley Leyva APRN [address] [facility] [place] [address] PCP - General Family Medicine 03/21/24 documented as of this encounter
--- OUTSIDE RECORDS SUMMARY | 2024-06-07 13:12 | XMS_ITS | Clinical Summary ---
Author Organization Formerly [facility] [place] [address] Care Team Providers Care Acoustical Tile Patternmaker Name Role Phone Haley Leyva APRN Primary Care Provider +1- [phone] Allergies Active Allergy Reactions Criticality Noted Date [...] Team Description 03/30/2024 Orders Only Cardiology at [address] [address] Tarsha Tay APRN Persistent atrial fibrillation 03/28/2024 Refill Cardiology at [address] [address] Denzel Moreno MD Medication Refill 03/21/2024 12:45 PM EST Anesthesia Event Main Operating Room [place] [phone] Sachin Slaughter MD Andrews, Mary K, CRNA 03/21/2024 12:45 PM EST - 03/21/2024 1:15 PM EST Surgery Main Operating Room [place] [phone] Denzel Moreno MD CARDIOVERSION-ELECTI VE (WRVU 2) 03/21/2024 11:13 AM EST - 03/21/2024 2:36 PM EST Hospital Encounter Same Day Program at [place] [phone] Denzel Moreno MD Longstanding persistent atrial fibrillation Discharge Disposition: Home 03/21/2024 11:00 AM EST Office Visit Cardiology at [address] [address] Pasquale Cai PA Persistent atrial fibrillation 03/21/2024 9:45 AM EST Laboratory Appointment Lab [address] [place] [phone] Persistent atrial fibrillation; On amiodarone therapy 03/21/2024 Orders Only Cardiology at [address] [address] Denzel Moreno MD Persistent atrial fibrillation 03/21/2024 Travel 03/17/2024 Telephone Cardiology at [address] [address] Alicia Gracia RN Pre Procedure Call 03/10/2024 Orders Only Cardiology at [address] [address] Tarsha Tay APRN Persistent atrial fibrillation 03/10/2024 Orders Only Cardiology at [address] [address] Tarsha Tay APRN Persistent atrial fibrillation from Last 3 Months Social History Tobacco Use Types Packs/Day Years Used Date Smoking Tobacco: Never Smokeless Tobacco: Never Tobacco Cessation:Counseling Given: Not Answered Alcohol Use Standard Drinks/Week Comments Not Currently 0 (1 standard drink = 0.6 oz pur e alcohol) [facility] Inpatient Questions Answer Date Recorded Does Anyone [...] AM EDT Hospital Encounter [place] [address] Denzel Moreno MD [facility] [place] [address] Persistent atrial fibrillation 07/31/2024 10:30 AM EDT - 07/31/2024 3:00 PM EDT Surgery [place] [address] Denzel Moreno MD [facility] [place] [address] ELECTROPHYSIOLOGY PROCEDURE Scheduled Procedures Name Priority Associated Diagnoses Date/Ti me ELECTROPHYSIOLOGIC EVALUATIO N WITH TRANSSEPTAL CATHETERIZATIONS; INSERTION AND REPOSITIONING OF MULTIPLE ELECTRODE CATHETERS (WRVU 17) Persistent atrial fibrillation 07/31/2024 10:30 AM EDT Health Maintenance Due Date Last Done Comments CT Colonography 1954 Colonoscopy 1954 Colorectal Cancer Screening 1954 FIT DNA 1954 FIT 1954 Sigmoidoscopy (10 year) with FIT yearly 1954 Sigmoidoscopy 1954 Hepatitis C Screening 1972 Tetanus/Diphtheria/Pertussis Vaccines (1 - Tdap) 12/10 Breast Cancer Share Decision Needed 1994 Breast Cancer screening 1994 Pneumoccocal Vaccine: 50+ (1 of 1 - PCV) 2004 Zoster vaccine (1 of 2) 2004 Advance Directive 2009 Bone Density Scan 12/11/2019 Covid-19 Vaccine (1 - season) 2024 Influenza (Flu) vaccine (1 o f 1 - Influenza standard series) 01/16/2024 Procedures Procedure Name Priority Date/Time Associated Diagnosis Comments Cardioversion Elective Arrhythmia External (93795) 03/21/2024 12:46 PM EST Longstanding persistent atrial [...] (Bezet) 466 ms MUSE SYSTEM Calculated R [place] 7 degrees MUSE SYSTEM Calculated T [place] 34 degrees MUSE SYSTEM INTERPRETATION Atrial fibrillation Abnormal ECG When compared with ECG of 24-NOV-2023 15:42, No significant change was found Confirmed by MD Sam, Manuel ([id number]) on 03/21/2024 5:13:12 PM MUSE SYSTEM 03/21/2024 10:5 0 AM EST 03/21/2024 5:13 PM EST Denzel Moreno MD ECG ORDERABLES Performing Organization Address City/[facility] Co de Phone Number MUSE SYSTEM * TSH [place] (03/21/2024 9:59 AM EST) Thyroid Stimulating Hormone 2.85 0.27 - 4.20 mcIU/mL 03/21/2024 11:05 AM EST [facility] Comment: Reference Interval (mcIU/mL): ?? Females: ? First Trimester: 0.23-3.88 ? Second Trimester: 0.22-3.90 ? Third Trimester: 0.44-4.66 Blood VENOUS BLOOD SPECIMEN / Unknown Venipuncture / Unknown 03/21/2024 9:59 AM EST 03/21/2024 9:59 AM EST Tarsha Tay APRN CHEMISTRY ORDERABLES Performing Organization Address City/[facility]/ZIP Co de Phone Number [facility] [place] [address] * Comprehensive metabolic panel (03/21/2024 9:59 AM EST) Glucose 101 65 - 199 mg/dL 03/21/2024 11:05 AM EST [facility] Comment:Glucose Concentratio n >=200 mg/dL plus symptoms is consistent with Diabetes Mellitus. Blood Urea Nitrogen 17 8 - 18 mg/dL 03/21/2024 11:05 AM [facility] Creatinine 0.99 0.70 - 1.20 mg/dL [...] Fasting Status No 03/21/2024 11:05 AM EST [facility] Blood VENOUS BLOOD SPECIMEN / Unknown Venipuncture / Unknown 03/21/2024 9:59 AM EST 03/21/2024 9:59 AM EST Tarsha Tay COMPUTER PROCESSING SCHEDULER CHEMISTRY ORDERABLES [facility] [place] [address] * Scan Doc: ECG (03/16/2024 12:00 AM EDT) Narrative 03/16/2024 12:00 AM EDT Ordered by an unspecified provider. Scanning Provider MEDIA MGR SCAN EXT O RDR/RSLT from Last 3 Months Care Teams Acoustical Tile Patternmaker Relationship Specialty Start Date End Date Haley Leyva APRN [address] [place] [address] PCP - General Family Medicine 03/21/24
--- OUTSIDE RECORDS SUMMARY | 2024-06-07 13:12 | XMS_ITS | Encounter Summary ---
Author Organization [facility] [place] [address] Care Team Providers Care Hand Bookbinder Name Role Phone Haley Leyva VICKI Primary Care Provider +1- [phone] Encounter Details Date Type Department Care Team (Late st Contact Info) Description 03/21/2024 Orders Only Cardiology at [address] [phone] Denzel Moreno MD [facility] [place] [address] Persistent atrial fibrillation Social History Tobacco Use Types Packs/Day Years Used Date Smoking Tobacco: Never Smokeless Tobacco: Never Alcohol Use Standard Drinks/Week Comments Not Currently 0 (1 standard drink = 0.6 oz pur e alcohol) [facility] Inpatient Questions Answer Date Recorded Does Anyone [...] AM EDT Hospital Encounter Elect[place] [phone] Denzel Moreno MD [facility] [place] [address] Persistent atrial fibrillation 07/31/2024 10:30 AM EDT - 07/31/2024 3:00 PM EDT Surgery [place] [address] Denzel Moreno MD [facility] [place] [address] ELECTROPHYSIOLOGY PROCEDURE Scheduled Procedures Name Priority Associated Diagnoses Date/Ti me ELECTROPHYSIOLOGIC EVALUATIO N WITH TRANSSEPTAL CATHETERIZATIONS; INSERTION AND REPOSITIONING OF MULTIPLE ELECTRODE CATHETERS (WRVU 17) Persistent atrial fibrillation 07/31/2024 10:30 AM EDT documented as of this encounter Visit Diagnoses Diagnosis Persistent atrial fibrillation Atrial fibrillation Persistent atrial fibrillation Atrial fibrillation Persistent atrial fibrillation Atrial fibrillation documented in this encounter Care Teams Hand Bookbinder Relationship Specialty Start Date End Date Haley Leyva APRN [address] [place] [address] PCP - General Family Medicine 03/21/24 documented as of this encounter
--- OUTSIDE RECORDS SUMMARY | 2024-06-07 13:12 | XMS_ITS | Encounter Summary ---
Author Organization [facility] [place] [address] Care Team Providers Care Head Holder Name Role Phone Haley Leyva Bishop COHEN Primary Care Provider +1- [phone] Reason for Visit * Reason Onset Date Comments Medication Refill 03/28/2024 Encounter Details Date Type Department Care Team (Late st Contact Info) Description 03/28/2024 Refill Cardiology at [address] [address] Denzel Moreno MD [facility] [place] [address] Medication Refill Social History Tobacco Use Types Packs/Day Years Used Date Smoking Tobacco: Never Smokeless Tobacco: Never Alcohol Use Standard Drinks/Week Comments Not Currently 0 (1 standard drink = 0.6 oz pur e alcohol) [facility] Inpatient Questions Answer Date Recorded Does Anyone [...] AM EDT Hospital Encounter [place] [address] Denzel Moreno MD [facility] [place] [address] Persistent atrial fibrillation 07/31/2024 10:30 AM EDT - 07/31/2024 3:00 PM EDT Surgery [place] [address] Denzel Moreno MD [facility] [place] [address] ELECTROPHYSIOLOGY PROCEDURE Scheduled Procedures Name Priority Associated Diagnoses Date/Ti mi ELECTROPHYSIOLOGIC EVALUATIO N WITH TRANSSEPTAL CATHETERIZATIONS; INSERTION AND REPOSITIONING OF MULTIPLE ELECTRODE CATHETERS (WRVU 17) Persistent atrial fibrillation 07/31/2024 10:30 AM EDT documented as of this encounter Visit Diagnoses Diagnosis Persistent atrial fibrillation Atrial fibrillation Persistent atrial fibrillation Atrial fibrillation Persistent atrial fibrillation Atrial fibrillation documented in this encounter Care Teams Head Holder Relationship Specialty Start Date End Date Haley Leyva APRN [address] [place] [address] PCP - General Family Medicine 03/21/24 documented as of this encounter
--- OUTSIDE RECORDS SUMMARY | 2024-06-07 13:12 | XMS_ITS | Continuity of Care Document ---
Author Organization [facility] Address [address] [place] [address] Care Team Providers Care Mapping Pilot Name Role Phone Haley Leyva Primary Care Physician Encounter [facility] Date(s): 02/23/23 - 02/23/23 [facility] [address] [place] [address] Discharge Disposition: Home or Self Care Attending Physician: Bernabe Spencer MD Admitting Physician: Bernabe Spencer MD Referring Physician: Bernabe Spencer MD Allergies, Adverse Reactions, Alerts Substance Reaction Severity Status morphine Abdominal pain Moderate Active Assessment and Plan Future Appointments Medications Eliquis 5 mg oral tablet 5 mg = 1 tab, Oral, BID, # 90 tab, 11 Refill(s), Pharmacy: [facility] ([facility] Start Date: 09/04/22 Status: Ordered Eliquis 5 mg oral tablet 5 mg = 1 tab, Oral, BID, # 60 tab, 11 Refill(s), Pharmacy: [id number] Start Date: 09/03/22 Status: Ordered metoprolol succinate 50 mg oral capsule, extended release 50 mg = 1 cap, Oral, BID, # 60 cap, 11 Refill(s), Pharmacy: [id number] Start Date: 09/03/22 Status: Ordered metoprolol succinate 50 mg oral tablet, extended release 50 mg = 1 tab, Oral, BID, # 180 tab, 11 Refill(s), Pharmacy: [facility] ([facility] Start Date: 09/04/22 Status: [...] Tonsillectomy Completed Varicose vein stripping C ompleted Social History Social History Type Response Tobacco Never tobacco user T obacco Use:. Sex Female Cardiac stress echo study * Event Display: Echocardiogram Stress Authored Date: [id number] Exercise stress test study * Ashley Justin: PERFORM Bernabe Spencer MD: MODIFY Event Display: Stress ECG Authored Date: [id number] DEMIAN GUSTAFSON :1955 Age:67 years Sex:Female Visit Date:02/23/2023 Primary Care Physician: Haley Leyva INTERNAL CONTROL SPECIALIST Ordering Provider : ??Bernabe Spencer MD? ETT?Parag Protocol Indication:??atrial fibrillation MPHR:??163 85% MPHR:??138 ?Stage ??Speed ??Incline ??Heart rate ??Blood Pressure ??Comments ??1 ??2.7 km/hr ??10% ?116 ??130/70 ?97% ??2 ??4.02 km/hr ??12% ?100 ??150/70 ?97% ??3 ??5.47 km/hr ??14% ?91 ?4 ??6.76 km/hr ??16% ?/ ?5 ??8.05 km/hr ??18% ?/ ?6 ??8.85 km/hr ??20% ?/ ?7 ??9.65 km/hr ??22% ?/ ?8 ??10.46 km/hr ??24% ?/ ?Recovery ?/ ?2:00 ?/ ?4:00 ?/ ? Total Time:??7:10 Max Heart Rate:??176 % of MPHR achieved:??107 METS:10.10 ?? Functional Capacity: ??Good?? Peak BP:??150/79 Chest Pain: ??None? Reason Test Terminated:??pt. wanted to stop ST Changes: ??1??mm Direction, leads:?? Arrhythmias:??afib Heart rate and BP Response:??appropriate Gary Treadmill Score: ?? +2?MODERATE RISK, with predicted 5-year survival >90%.? Summary Impression:??Normal ETT with no evidence of ischemia. Reassuring stress??test. Good exercise tolerance. Associated echocardiogram reassuring. Normal stress echo.?? Electronically Signed on 02/23/23 01:55 PM Ashley Justin Electronically Signed on 02/23/23 02:46 PM Bernabe Spencer MD Reviewed by: Ashley Justin Steven D MD Patient Care team information Care Team Personnel Name: Haley Leyva INTERNAL CONTROL SPECIALIST Position: PowerChart View Only Member Role: Primary Care Physician Address: Address: [address] [place] [address]- [place] Care Team Related Persons Name: SASKIA GUSTAFSON
--- OUTSIDE RECORDS SUMMARY | 2024-06-07 13:12 | XMS_ITS | Continuity of Care Document ---
Author Organization [facility] Address [address] [place] [address] Care Team Providers Care Recreation Establishment Manager Name Role Phone Gordon Haley Alas Primary Care Physician Encounter [place] Date(s): 05/22/24 - 05/22/[address] [address] [place] Discharge Disposition: Home or Self Care Attending Physician: Nidia Blanco PA-C Admitting Physician: Nidia Blanco PA-C Referring Physician: Nidia Blanco PA-C Encounter Type: Outpatient Allergies, Adverse Reactions, Alerts Substance Criticality Severity Reaction Reaction Severity Status morphine High criticality Moderate Abdominal pain Active Assessment and Plan Future Appointments Medications Eliquis 5 mg oral tablet 5 mg = 1 tab, Oral, BID, # 90 tab, 11 Refill(s), Pharmacy: [facility], 172.72, cm, 08/13/23 12:44:00 EDT, Height, 69.55, kg, 08/13/23 12:52:00 EDT, Weight Dosing Start Date: 09/08/23 Status: Ordered Quantity: 90.0 Unit: tab Repeat number: 12 Indication: Unspecified atrial fibrillation metoprolol succinate 50 mg oral tablet, extended release 50 mg = 1 tab, Oral, BID, # 180 tab, 11 Refill(s), Pharmacy: [facility], 172.72, cm, 08/13/23 12:44:00 EDT, Height, 69.55, kg, 08/13/23 12:52:00 EDT, Weight Dosing Start Date: 09/08/23 Status: Ordered Quantity: 180.0 Unit: tab Repeat number: 12 Indication: Unspecified atrial fibrillation Problem List Condition Confirmation Course Effective Dates [...] Use:. Sex Female Sex Representation Female (finding) Patient Care team information Care Team Personnel Name: Haley Leyva DEVELOPMENT ADMINISTRATOR Position: PowerChart View Only Member Role: Informed Provider Address: [address] [place] [address] Telecom: Care Team Related Persons Name: SASKIA GUSTAFSON Name: ISABEL GUSTAFSON Insurance Providers Guarantor name: PRASHANT Health Plan Information #: 2 Payer: MICHAEL RODRIGUEZ Member Number: [id number] Policy Number: NA Group Number: NA Health Plan Information #: 1 Payer: [employer] MEDICARE REPLACEMENTADVANTAGE HMO Member Number: [id number] Policy Number: NA Group Number: NA
--- OUTSIDE RECORDS SUMMARY | 2024-06-07 13:13 | XMS_ITS | Encounter Summary ---
[place] [address] Care Team Providers Care Child Neurologist Name Role Phone Unavailable Primary Care Provider Unavailabl e Reason for Visit * Reason Onset Date Comments Pre Procedure Call 03/17/2024 Encounter Details Date Type Department Care Team (Late st Contact Info) Description 03/17/2024 Telephone Cardiology at [address] [phone] Alicia Gracia, RN Pre Procedure Call Social [...] to procedure. NPO after midnight. Understands that rickshaw driver is needed to transport them upon discharge. documented in this encounter Plan of Treatment Upcoming Encounters Date Type Department Care Team (Latest Contact Info) Description 07/31/2024 7:30 AM EDT Hospital Encounter [place] [address] Denzel Moreno MD [facility] [place] [address] Persistent atrial fibrillation 07/31/2024 10:30 AM EDT - 07/31/2024 3:00 PM EDT Surgery [place] [address] Denzel Moreno MD [facility] [place] [address] ELECTROPHYSIOLOGY PROCEDURE Scheduled Procedures Name Priority Associated Diagnoses Date/Ti ks ELECTROPHYSIOLOGIC EVALUATIO N WITH TRANSSEPTAL CATHETERIZATIONS; INSERTION AND REPOSITIONING OF MULTIPLE ELECTRODE CATHETERS (WRVU 17) Persistent atrial fibrillation 07/31/2024 10:30 AM EDT documented as of this encounter Visit Diagnoses Not on filedocumented in this encounter
--- OUTSIDE RECORDS SUMMARY | 2024-06-07 13:13 | XMS_ITS | Encounter Summary ---
Author Organization [facility] [place] [address] Care Team Providers Care Strip Mine Supervisor Name Role Phone Unavailable Primary Care Provider Unavailabl e Encounter Details Date Type Department Care Team (Late st Contact Info) Description 02/05/2024 Orders Only Cardiology at [address] [phone] Tarsha Tay APRN [facility] [place] [address] Persistent atrial fibrillation Social History Tobacco Use [...] AM EDT Hospital Encounter Electrophys[place] [phone] Denzel Moreno MD [facility] [place] [address] Persistent atrial fibrillation 07/31/2024 10:30 AM EDT - 07/31/2024 3:00 PM EDT Surgery [place]rophys[place] [phone] Denzel Moreno MD [facility] [address] ELECTROPHYSIOLOGY PROCEDURE Scheduled Procedures Name Priority Associated [...]
--- OUTSIDE RECORDS SUMMARY | 2024-06-07 13:13 | XMS_ITS | Encounter Summary ---
[place] [address] Care Team Providers Care Sand Cutter Name Role Phone Unavailable Primary Care Provider Unavailabl e Reason for Referral * Consultation (Routine) - Closed Specialty Diagnoses / Procedures Referred By Contact Referred To Contact Electrophysiology / Cardiology Diagnoses Tachycardia Tachycardia, unspecified. Bernabe Spencer MD [address] [place] [address] [facility] [address] [place] [phone] Referral ID Status Reason Start Date Expiration Date V isits Requested Visits Authorized [id number] Closed Consult, Test & Treat PCP Updated and/or Approved 06/07/2023 06/06/2024 1 1 Encounter Details Date Type Department Care Team (Late st Contact Info) Description 06/07/2023 Transcribe Orders Cardiology at [address] [phone] Bernabe Spencer MD [address] [place] [address] Tachycardia Social History Tobacco Use [...] AM EDT Hospital Encounter [place] [address] Denzel Moreno MD [facility] [address] Persistent atrial fibrillation 07/31/2024 10:30 AM EDT - 07/31/2024 3:00 PM EDT Surgery [place] [address] Denzel Moreno MD [facility] [place] [address] ELECTROPHYSIOLOGY PROCEDURE Scheduled Procedures Name Priority Associated [...]
--- OUTSIDE RECORDS SUMMARY | 2024-06-07 13:13 | XMS_ITS | Encounter Summary ---
Author Organization [facility] [place] [address] Care Team Providers Care Grinder And Honer Operator Automatic Name Role Phone Unavailable Primary Care Provider Unavailabl e Reason for Referral * Consultation (Routine) - Closed Specialty Diagnoses / Procedures Referred By Contac t Referred To Contact Sleep Center Diagnoses Tarsha Harper APRN [facility] [place] [address] Referral ID Status Reason Start Date Expiration Date V isits Requested Visits Authorized [id number] Closed Consult, Test & Treat 11/24/2023 05/22/2024 1 1 Reason for Visit * Consultation (Routine) - Closed Specialty Diagnoses / Procedures Referred By Contact Referred To Contact Electrophysiology / Cardiology Diagnoses Tachycardia Tachycardia, unspecified. Bernabe Spencer MD [address] [place] [address] [facility] [address] [place] [phone] Referral ID Status Reason Start Date Expiration Date V isits Requested Visits Authorized [id number] Closed Consult, Test & Treat PCP Updated and/or Approved 06/07/2023 06/06/2024 1 1 Encounter Details Date Type Department Care Team (Late st Contact Info) Description 11/24/2023 4:00 PM EDT Office Visit Cardiology at [address] [address] Tarsha Tay, VICKI [facility] [place] [address] Persistent atrial fibrillation; Snores; High risk medication [...] with a plan to obtain labs from [facility] with your PCP Diana. We discussed starting amiodarone loading and then plan to electrically cardiovert within 6 weeks after starting the antiarrhythmic medicine. We also discussed ablation procedure. There may be some tech tach technical difficulties with your history of having ASD repair I would recommend speaking with an student specialist Regarding ablation procedure if that is a potential consideration in the future There are websites you can check out for further information regarding atrial fibrillation: www.stopafib.org this is a patient website that was written by the patient who has A-fib. These are websites for patient information from the [employer] https://www.cardiosmart.org/topics/atrial-fibrillation https://www.cardiosmart.org/assets/fact-sheet/96-jwzra-xph-jxy-bklt-zl-manage-at rial-fibrillation * Attachments The following attachments cannot be sent through Care Everywhere. * Diet: DASH (Chinese) * Amiodarone Oral Tablet (AMIODARONE - ORAL) (Chinese) * Cardioversion: Chemical (Chinese) * Electrical Cardioversion (Chinese) documented in this encounter Progress Notes * Tarsha Tay APRN - 11/24/2023 4:00 PM EDT Images from the original note were not included. Cardiac Electrophysiology Clinic Visit Subjective: Patient ID: Allie Dunaway is a 67 y.o. female. CC: New patient referral from [facility] Cardiology, Dr. Spencer for atrial fibrillation. PCP: Haley Leyva Cardiology: [facility] Cardiology- Dr. Spencer is no longer [...] she was in continuous AFib from the opatch. Anticoagulation: Eliquis 5 mg BID Rate control: [...] different types of jobs: 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 Exercise: no structured program, walks outside, [...] presents for AF manageme. Persistent atrial fibrillation [id number] Score is 2 (Age-1, Female-1, ), with [...] have more records, from PCP Diana at [facility] regarding recent labs (looking for CMP, TSH), [...] challenges and I would refer to an student specialist MD regarding procedural discussion. Plan: 1. Request records from PCP about recent labs (looking for CMP, TSH) 2. PFTs baseline prior to starting amiodarone- external referral 3. Sleep medicine evaluation for sleep apnea- external referral. 4. Consider amiodarone loading and cardioversion 4-6 weeks later. Tarsha Tay, VICKI 11/24/23 Patient Instructions We discussed AFib management today, with a plan to obtain labs from [facility] with your PCP Diana. We discussed starting amiodarone loading and then plan to electrically cardiovert within 6 weeks after starting the antiarrhythmic medicine. We also discussed ablation procedure. There may be some tech tach technical difficulties with your history of having ASD repair I would recommend speaking with an student specialist Regarding ablation procedure if that is a potential consideration in the future There are websites you can check out for further information regarding atrial fibrillation: www.stopafib.org this is a patient website that was written by the patient who has A-fib. These are websites for patient information from the [employer] https://www.cardiosmart.org/topics/atrial-fibrillation https://www.cardiosmart.org/assets/fact-sheet/87-iebvg-kxa-gnp-pyzt-qw-manage-at rial-fibrillation documented in this encounter Plan of Treatment Upcoming Encounters Date Type Department Care Team (Latest Contact Info) Description 07/31/2024 7:30 AM EDT Hospital Encounter [place] [phone] Denzel Moreno MD [facility] [address] Persistent atrial fibrillation 07/31/2024 10:30 AM EDT - 07/31/2024 3:00 PM EDT Surgery [place] [address] Denzel Moreno MD [facility] [place] [address] ELECTROPHYSIOLOGY PROCEDURE Scheduled Orders Name Type Priority [...] (Bezet) 464 ms MUSE SYSTEM Calculated R [place] 46 degrees MUSE SYSTEM Calculated T [place] 34 degrees MUSE SYSTEM INTERPRETATION Atrial fibrillation Abnormal ECG No previous ECGs available Confirmed by MD ALVAREZ ARMIN ([id number]) on 11/24/2023 10:05:48 PM MUSE SYSTEM [...]
--- OUTSIDE RECORDS SUMMARY | 2024-06-07 13:13 | XMS_ITS | Encounter Summary ---
[place] [address] Care Team Providers Care Blower Mechanic Name Role Phone Gordon Haley H VICKI Primary Care Provider +1- [phone] Reason for Visit * Auth/Cert (Routine) Specialty Diagnoses / Procedures Referred By Contac t Referred To Contact Diagnoses Longstanding persistent atrial fibrillation persistent atrial fibrillation Procedures PRO CARDIOVERSION ELECTIVE ARRHYTHMIA EXTERNAL CARDIOVERSION-ELECTIVE (WRVU 2) Sohail Gutierrez MD [facility] [address] [facility] Referral ID Status Reason Start Date Expiration Date Visits Re quested Visits Authorized [id number] 1 1 Encounter Details Date Type Department Care Team (Late st Contact Info) Description 03/21/2024 12:45 PM EST Anesthesia Event [place] [phone] Sachin Omer MD [facility] [place] [address] Sarah Beth Webb CRNA [facility] [place] [address] Anesthesia Record Procedure Summary Procedure Name Responsible Anesthesiologist Anesthesia Start Time Anesthesia Stop Time CARDIOVERSION-ELECT NORMA (WRVU 2) Sachin Omer MD 03/21/24 1245 03/21/24 1316 Events Date Time Event Comment 03/21/2024 1219 1245 AN Verify 1245 Start 1247 An Start Data 1252 Anesthesia Ready 1253 an jakob now Shocked x1 200J . NSR with PAC 1312 an stop data 1316 Recovery or ICU Handoff Melina ent care was transferred to the destination [...] Type Details Placement Removal PIV 03/21/24; 1237; tqyh-tdc-[id number] catheter system; 20 gauge; metacarpal vein (top [...] Procedure Summary Date: 03/21/24 Room / Location: [facility] MINOR SURGERY 2 / [facility] MAIN OR Anesthesia Start: 1245 Anesthesia Stop: 1316 Procedure: CARDIOVERSION-ELECTIVE (WRVU 2) Diagnosis: Longstanding persistent atrial fibrillation (persistent atrial fibrillation) Surgeons: Denzel Moreno MD Responsible Provider: Sachin Omer MD Anesthesia Type: MAC ASA Status: 3 All Anesthesia Providers: Anesthesiologist: Sachin Omer MD BUILDING CODE ADMINISTRATOR: Sarah Beth Webb CRNA Vitals Value Taken Time BP 121/60 03/21/24 1415 Temp 36.4 ??C (97.5 ??F) 03/21/24 1415 Pulse Resp SpO2 99 % 03/21/24 1416 Pain Level Vitals shown include unfiled device data. Patient Location: PACU/[facility] Level of Consciousness: Awake and Alert Pain [...] risks discussed with patient. Plan discussed with BUILDING CODE ADMINISTRATOR. Anesthesia Screening documented in this encounter Plan of Treatment Upcoming Encounters Date Type Department Care Team (Latest Contact Info) Description 07/31/2024 7:30 AM EDT Hospital Encounter [place] [address] Denzel Moreno MD [facility] [place] [place] [address] Persistent atrial fibrillation 07/31/2024 10:30 AM EDT - 07/31/2024 3:00 PM EDT Surgery [place] [address] Denzel Moreno MD [facility] [place] [address] ELECTROPHYSIOLOGY PROCEDURE Scheduled Procedures Name Priority Associated [...] mg documented in this encounter Care Teams Blower Mechanic Relationship Specialty Start Date End Date Haley Leyva APRN [address] [place] [address] PCP - General Family Medicine 03/21/24 documented as of this encounter
--- OUTSIDE RECORDS SUMMARY | 2024-06-07 13:13 | XMS_ITS | Encounter Summary ---
Author Organization [facility] [place] [address] Care Team Providers Care Graduate Internship Name Role Phone Sinshara Haleyjayla Alas APRN Primary Care Provider [phone]- [phone] Reason for Visit * Auth/Cert (Routine) Specialty Diagnoses / Procedures Referred By Contac t Referred To Contact Diagnoses Longstanding persistent atrial fibrillation persistent atrial fibrillation Procedures PRO CARDIOVERSION ELECTIVE ARRHYTHMIA EXTERNAL CARDIOVERSION-ELECTIVE (WRVU 2) Sohail Gutierrez MD [facility] [place] [address] [facility] Referral ID Status Reason Start Date Expiration Date Visits Re quested Visits Authorized [id number] 1 1 Encounter Details Date Type Department Care Team (Latest Contact Info) Description 03/21/2024 9:45 AM EST Laboratory Appointment Lab [address] [place] [phone] Persistent atrial fibrillation; On amiodarone therapy Social [...] AM EDT Hospital Encounter [place] [address] Denzel Moreno MD [facility] [place] [address] Persistent atrial fibrillation 07/31/2024 10:30 AM EDT - 07/31/2024 3:00 PM EDT Surgery [place] [address] Denzel Moreno MD [facility] [place] [address] ELECTROPHYSIOLOGY PROCEDURE Scheduled Procedures Name Priority Associated [...] - 199 mg/dL 03/21/2024 11:05 AM EST [facility] Comment:Glucose Concentratio n >=200 mg/dL plus symptoms is consistent with Diabetes Mellitus. Blood Urea Nitrogen 17 8 - 18 mg/dL 03/21/2024 11:05 AM EST [facility] Creatinine 0.99 0.70 - 1.20 mg/dL 03/21/2024 11:05 AM [facility] Sodium 141 135 - 145 mMol/L 03/21/2024 11:05 AM [facility] Potassium 4.2 3.5 - 5.0 mMol/L 03/21/2024 11:05 AM [facility] Chloride 104 98 - 107 mMol/L 03/21/2024 11:05 AM [facility] Carbon Dioxide 29 22 - 31 mMol/L 03/21/2024 11:05 AM [facility] Anion Gap 8 5 - 15 mMol/L 03/21/2024 11:05 AM [facility] Calcium 9.1 8.5 - 10.5 mg/dL 03/21/2024 11:05 AM [facility] Protein, Total 7.0 6.1 - 8.0 g/dL 03/21/2024 11:05 AM [facility] Albumin 4.1 3.2 - 5.2 g/dL 03/21/2024 11:05 AM [facility] Aspartate Aminotransferase 25 <=30 unit/L 03/21/2024 11:05 AM [facility] Alanine Aminotransferase 21 0 - 30 unit/L 03/21/2024 11:05 AM [facility] Alkaline Phosphatase 63 35 - 105 unit/L 03/21/2024 11:05 AM [facility] Bilirubin, Total 0.9 <=1.3 mg/dL 03/21/2024 11:05 AM [facility] Est Glomerular Filtration Rate - Female 62 mL/min/1. 73 m?? 03/21/2024 11:05 AM [facility] Comment: This patient's estimated GFR [...] Fasting Status No 03/21/2024 11:05 AM EST [facility] Blood VENOUS BLOOD SPECIMEN / Unknown Venipuncture / Unknown 03/21/2024 9:59 AM EST 03/21/2024 9:59 AM EST Tarsha Tay APRN CHEMISTRY ORDERABLES Performing Organization Address City/[facility]/ZIP Co de Phone Number [facility] [place] [address] * [facility] [place] (03/21/2024 9:59 AM EST) Thyroid Stimulating Hormone 2.85 0.27 - 4.20 mcIU/mL 03/21/2024 11:05 AM EST [facility] Comment: Reference Interval (mcIU/mL): ?? Females: ? First Trimester: 0.23-3.88 ? Second Trimester: 0.22-3.90 ? Third Trimester: 0.44-4.66 Blood VENOUS BLOOD SPECIMEN / Unknown Venipuncture / Unknown 03/21/2024 9:59 AM EST 03/21/2024 9:59 AM EST Tarsha Tay APRN CHEMISTRY ORDERABLES Performing Organization Address City/[facility]/ZIP Co de Phone Number [facility] [place] [address] documented in this encounter Visit Diagnoses Diagnosis Persistent atrial fibrillation Atrial fibrillation On amiodarone therapy Persistent atrial fibrillation Atrial fibrillation Persistent atrial fibrillation Atrial fibrillation documented in this encounter Care Teams Graduate Internship Relationship Specialty Start Date End Date Haley Leyva APRN [address] [place] [address] PCP - General Family Medicine 03/21/24 documented as of this encounter
--- OUTSIDE RECORDS SUMMARY | 2024-06-07 13:13 | XMS_ITS | Encounter Summary ---
Author Organization [facility] [place] [address] Care Team Providers Care Board Writer Name Role Phone Unavailable Primary Care Provider Unavailabl e Encounter Details Date Type Department Care Team (Late st Contact Info) Description 12/03/2023 Orders Only Cardiology at [address] [address] Tarsha Tay APRN [facility] [place] [address] Persistent atrial fibrillation Social History Tobacco Use [...] AM EDT Hospital Encounter [place] [address] Denzel Moreno MD [facility] [place] [address] Persistent atrial fibrillation 07/31/2024 10:30 AM EDT - 07/31/2024 3:00 PM EDT Surgery [place] [address] Denzel Moreno MD [facility] [place] [address] ELECTROPHYSIOLOGY PROCEDURE Scheduled Orders Name Type Priority Associated Diagnoses Orde r Schedule Comprehensive metabolic panel (non-fasting) Lab Routine Persistent atrial fibrillation Expected: 12/03/2023 (Approximate), Expires: 12/02/2024 [facility] [place] Lab Routine Persistent atrial fibrillation Expected: 12/03/2023 [...]
--- OUTSIDE RECORDS SUMMARY | 2024-06-07 13:13 | XMS_ITS | Encounter Summary ---
Author Organization [facility] [place] [address] Care Team Providers Care Roster Clerk Name Role Phone Unavailable Primary Care Provider Unavailabl e Encounter Details Date Type Department Care Team (Late st Contact Info) Description 06/07/2023 Transcribe Orders Cardiology at [address] [phone] Alise Palacios Tachycardia, unspecified Social History Tobacco [...] AM EDT Hospital Encounter [place] [phone] Denzel Moreno MD [facility] [place] [address] Persistent atrial fibrillation 07/31/2024 10:30 AM EDT - 07/31/2024 3:00 PM EDT Surgery [place] [phone] Denzel Moreno MD [facility] [place] [address] ELECTROPHYSIOLOGY PROCEDURE Scheduled Procedures Name Priority Associated Diagnoses Date/Ti me ELECTROPHYSIOLOGIC EVALUATIO N WITH TRANSSEPTAL CATHETERIZATIONS; INSERTION AND REPOSITIONING OF MULTIPLE ELECTRODE CATHETERS ([facility]) Persistent atrial fibrillation 07/31/2024 10:30 AM EDT documented as of this encounter Visit Diagnoses Diagnosis Tachycardia, unspecified Persistent atrial fibrillation Atrial fibrillation Persistent atrial fibrillation Atrial fibrillation documented in this encounter
--- OUTSIDE RECORDS SUMMARY | 2024-06-07 13:13 | XMS_ITS | Encounter Summary ---
Author Organization [facility] [place] [address] Care Team Providers Care Home Health Attendant Name Role Phone Unavailable Primary Care Provider [...] AM EDT Hospital Encounter [place] [address] Denzel Moreno MD [facility] [place] [address] Persistent atrial fibrillation 07/31/2024 10:30 AM EDT - 07/31/2024 3:00 PM EDT Surgery [place] [address] Denzel Moreno MD [facility] [place] [address] ELECTROPHYSIOLOGY PROCEDURE Scheduled Procedures Name Priority Associated Diagnoses Date/Ti me ELECTROPHYSIOLOGIC EVALUATIO N WITH TRANSSEPTAL CATHETERIZATIONS; INSERTION AND REPOSITIONING OF MULTIPLE ELECTRODE CATHETERS (WRVU 17) Persistent atrial fibrillation 07/31/2024 10:30 AM EDT documented as of this encounter Visit Diagnoses Not on filedocumented in this encounter
--- OUTSIDE RECORDS SUMMARY | 2024-06-07 13:13 | XMS_ITS | Encounter Summary ---
Author Organization [facility] [place] [address] Care Team Providers Care Railcar Brake Operator Name Role Phone Sinshara Haley Bishop COHEN Primary Care Provider [phone]- [phone] Reason for Visit * Auth/Cert (Routine) Specialty Diagnoses / Procedures Referred By Contac t Referred To Contact Diagnoses Longstanding persistent atrial fibrillation persistent atrial fibrillation Procedures PRO CARDIOVERSION ELECTIVE ARRHYTHMIA EXTERNAL CARDIOVERSION-ELECTIVE (WRVU 2) Sohail Gutierrez MD [facility] [place] [address] [facility] Referral ID Status Reason Start Date Expiration Date Visits Re quested Visits Authorized [id number] 1 1 Encounter Details Date Type Department Care Team (Latest Contact Info) Description 03/21/2024 11:13 AM EST - 03/21/2024 2:36 PM [facility] Hospital Encounter [place] [address] Denzel Moreno MD [facility] [place] [address] Longstanding persistent atrial fibrillation Discharge Disposition: Home Social History Tobacco Use Types Packs/Day Years Used Date Smoking Tobacco: Never Smokeless Tobacco: Never Alcohol Use Standard Drinks/Week Comments Not Currently 0 (1 standard drink = 0.6 oz pur e alcohol) [facility] Inpatient Questions Answer Date Recorded Does [...] the adhesive pads were placed, call the building construction contractor rn coronary care unit at . We will schedule a follow-up appointment with the building construction contractor here, or you will be scheduled to see your local doctor soon. Any specific instructions that apply to you will be given to you prior to discharge from the hospital. If you have any questions about this procedure, call: Cardiology Department [facility] Wednesday through Wednesday After hours and weekends 8:00 a.m. to 4:30 p.m. Ask for Cardiology Resident Community Associate documented in this encounter Medications at Time [...] Operative Note Patient Name: Allie Dunaway : [id number] MR#: [id number] Case Date: 03/21/2024 Surgeon: Surgeons and Role: [...] entire procedure. Denzel Moreno MD 03/21/24 Cardiac Stable Hand [facility] * Op Note - Denzel [...] Follow up with ERICK Ray MD Cardiac Stable Hand 03/21/24 documented in this encounter Plan of Treatment Upcoming Encounters Date Type Department Care Team (Latest Contact Info) Description 07/31/2024 7:30 AM EDT Hospital Encounter [place] [address] Denzel Moreno MD [facility] [place] [address] Persistent atrial fibrillation 07/31/2024 10:30 AM EDT - 07/31/2024 3:00 PM EDT Surgery [place] [address] Denzel Moreno MD [facility] [place] [address] ELECTROPHYSIOLOGY PROCEDURE Scheduled Procedures Name Priority Associated Diagnoses Date/Ti me ELECTROPHYSIOLOGIC EVALUATIO N WITH TRANSSEPTAL CATHETERIZATIONS; INSERTION AND REPOSITIONING OF MULTIPLE ELECTRODE CATHETERS (WRVU 17) Persistent atrial fibrillation 07/31/2024 10:30 AM EDT documented as of this encounter Procedures Procedure Name Priority Date/Time Associated Diagnosis Comments Cardioversion Elective Arrhythmia External (66513) 03/21/2024 12:46 PM EST Longstanding persistent atrial [...] fibrillation documented in this encounter Care Teams Railcar Brake Operator Relationship Specialty Start Date End Date Haley Leyva APRN [address] [place] [id number] PCP - General Family Medicine 03/21/24 documented as of this encounter
--- OUTSIDE RECORDS SUMMARY | 2024-06-07 13:13 | XMS_ITS | Encounter Summary ---
Author Organization [facility] [place] [address] Care Team Providers Care Corporate Development Officer Name Role Phone SinsharaHaley APRN Primary Care Provider +1- [phone] Encounter Details Date Type Department Care Team (Latest Contact Info) Description 03/21/2024 Travel Social History Tobacco Use Types Packs/Day Years Used Date Smoking Tobacco: Never Smokeless Tobacco: Never Alcohol Use Standard Drinks/Week Comments Not Currently 0 (1 standard drink = 0.6 oz pur e alcohol) [facility] Inpatient Questions Answer Date Recorded [...] AM EDT Hospital Encounter [place] [address] Denzel Moreno MD [facility] [place] [address] Persistent atrial fibrillation 07/31/2024 10:30 AM EDT - 07/31/2024 3:00 PM EDT Surgery [place] [address] Denzel Moreno MD [facility] [place] [place] [address] ELECTROPHYSIOLOGY PROCEDURE Scheduled Procedures Name Priority Associated Diagnoses Date/Ti tn ELECTROPHYSIOLOGIC EVALUATIO N WITH TRANSSEPTAL CATHETERIZATIONS; INSERTION AND REPOSITIONING OF MULTIPLE ELECTRODE CATHETERS (WRVU 17) Persistent atrial fibrillation 07/31/2024 10:30 AM EDT documented as of this encounter Visit Diagnoses Not on filedocumented in this encounter Care Teams Corporate Development Officer Relationship Specialty Start Date End Date Haley Leyva APRN [address] [place] [address] PCP - General Family Medicine 03/21/24 documented as of this encounter
--- OUTSIDE RECORDS SUMMARY | 2024-06-07 13:13 | XMS_ITS | Encounter Summary ---
Author Organization [facility] [place] [address] Care Team Providers Care Wares Sorter Name Role Phone Unavailable Primary Care Provider Unavailabl e Reason for Referral * Consultation (Routine) - Closed Specialty Diagnoses / Procedures Referred By Contac t Referred To Contact Cardiology Diagnoses Persistent atrial fibrillation Tarsha Tay APRN [facility] [place] [address] [facility] [address] [place] [phone] Referral ID Status Reason Start Date Expiration Date V isits Requested Visits Authorized [id number] Closed Consult, Test & Treat 03/10/2024 03/10/2025 1 1 Encounter Details Date Type Department Care Team (Late st Contact Info) Description 03/10/2024 Orders Only Cardiology at [address] [phone] Tarsha Tay APRN [facility] [place] [address] Persistent atrial fibrillation Social History Tobacco Use [...] AM EDT Hospital Encounter Electrophys[place] [address] Denzel Moreno MD [facility] [place] [address] Persistent atrial fibrillation 07/31/2024 10:30 AM EDT - 07/31/2024 3:00 PM EDT Surgery [place]rophys[place] [address] Denzel Moreno MD [facility] [place] [address] ELECTROPHYSIOLOGY PROCEDURE Scheduled Procedures Name Priority Associated [...]
--- OUTSIDE RECORDS SUMMARY | 2024-06-07 13:13 | XMS_ITS | Encounter Summary ---
Author Organization [facility] [place] [address] Care Team Providers Care Accounts Payable Bookkeeper Name Role Phone Unavailable Primary Care Provider Unavailabl e Encounter Details Date Type Department Care Team (Late st Contact Info) Description 03/10/2024 Orders Only Cardiology at [address] [phone] [facility] [place] [address] Persistent atrial fibrillation Social History Tobacco Use [...] AM EDT Hospital Encounter Electrophys[place] [phone] [facility] [place] [address] Persistent atrial fibrillation 07/31/2024 10:30 AM EDT - 07/31/2024 3:00 PM EDT Surgery [place] [address] [facility] [place] [address] ELECTROPHYSIOLOGY PROCEDURE Scheduled Procedures Name Priority Associated [...]
--- OUTSIDE RECORDS SUMMARY | 2024-06-07 13:13 | XMS_ITS | Encounter Summary ---
Author Organization [facility] [place] [address] Care Team Providers Care Can Coverer Name Role Phone Unavailable Primary Care Provider Unavailabl e Encounter Details Date Type Department Care Team (Late st Contact Info) Description 01/10/2024 [place] [address] Tarsha Tay APRN [facility] [place] [address] Persistent atrial fibrillation; On amiodarone therapy Social [...] Sleep medicine referral placed 11/24/23, [place] near [place], [place]. Follow up in 1 month post cardioversion (~mid March). Tarsha Tay APRN 01/10/24 documented in this encounter Plan of Treatment Upcoming Encounters Date Type Department Care Team (Latest Contact Info) Description 07/31/2024 7:30 AM EDT Hospital Encounter [place] [address] Denzel Moreno MD [facility] [place] [address] Persistent atrial fibrillation 07/31/2024 10:30 AM EDT - 07/31/2024 3:00 PM EDT Surgery [place] [address] Denzel Moreno MD [facility] [place] [address] ELECTROPHYSIOLOGY PROCEDURE Scheduled Procedures Name Priority Associated Diagnoses Date/Ti wv ELECTROPHYSIOLOGIC EVALUATIO N WITH TRANSSEPTAL CATHETERIZATIONS; INSERTION AND REPOSITIONING OF MULTIPLE ELECTRODE CATHETERS (WRVU 17) Persistent atrial fibrillation 07/31/2024 10:30 AM EDT documented as of this encounter Results * TSH [place] (03/21/2024 9:59 AM EST) Thyroid Stimulating Hormone 2.85 0.27 - 4.20 mcIU/mL 03/21/2024 11:05 AM EST [facility] Comment: Reference Interval (mcIU/mL): ?? Females: ? First Trimester: 0.23-3.88 ? Second Trimester: 0.22-3.90 ? Third Trimester: 0.44-4.66 Blood VENOUS BLOOD SPECIMEN / Unknown Venipuncture / Unknown 03/21/2024 9:59 AM EST 03/21/2024 9:59 AM EST Tarsha Tay PUBLIC INFORMATION SPECIALIST CHEMISTRY ORDERABLES [facility] [place] [place] [address] * Comprehensive metabolic panel (03/21/2024 9:59 AM EST) Glucose 101 65 - 199 mg/dL 03/21/2024 11:05 AM [facility] Comment:Glucose Concentratio n >=200 mg/dL plus symptoms is consistent with Diabetes Mellitus. Blood Urea Nitrogen 17 8 - 18 mg/dL 03/21/2024 11:05 AM [facility] Creatinine 0.99 0.70 - 1.20 mg/dL 03/21/2024 11:05 AM [facility] Sodium 141 135 - 145 mMol/L 03/21/2024 11:05 AM [facility] Potassium 4.2 3.5 - 5.0 mMol/L 03/21/2024 11:05 AM [facility] Chloride 104 98 - 107 mMol/L 03/21/2024 11:05 AM [facility] Carbon Dioxide 29 22 - 31 mMol/L 03/21/2024 11:05 AM [facility] Anion Gap 8 5 - 15 mMol/L 03/21/2024 11:05 AM [facility] Calcium 9.1 8.5 - 10.5 mg/dL 03/21/2024 11:05 AM [facility] Protein, Total 7.0 6.1 - 8.0 g/dL 03/21/2024 11:05 AM [facility] Albumin 4.1 3.2 - 5.2 g/dL 03/21/2024 11:05 AM EST [facility] Aspartate Aminotransferase 25 <=30 unit/L 03/21/2024 11:05 AM [facility] Alanine Aminotransferase 21 0 - 30 unit/L 03/21/2024 11:05 AM [facility] Alkaline Phosphatase 63 35 - 105 unit/L 03/21/2024 11:05 AM [facility] Bilirubin, Total 0.9 <=1.3 mg/dL 03/21/2024 11:05 AM [facility] Est Glomerular Filtration Rate - Female 62 mL/min/1. 73 m?? 03/21/2024 11:05 AM [facility] Comment: This patient's estimated GFR was [...] Foundation Fasting Status No 03/21/2024 11:05 AM [facility] Blood VENOUS BLOOD SPECIMEN / Unknown Venipuncture / Unknown 03/21/2024 9:59 AM EST 03/21/2024 9:59 AM EST Tarsha Tay PUBLIC INFORMATION SPECIALIST CHEMISTRY ORDERABLES [facility] [place] [place] [address] documented in this encounter Visit Diagnoses Diagnosis Persistent atrial fibrillation Atrial fibrillation On amiodarone therapy Persistent atrial fibrillation Atrial fibrillation Persistent atrial fibrillation Atrial fibrillation documented in this encounter
--- OUTSIDE RECORDS SUMMARY | 2024-06-07 13:13 | XMS_ITS | Encounter Summary ---
Author Organization [facility] [place] [address] Care Team Providers Care Revenue Accountant Name Role Phone Sinshara Haley Bishop COHEN Primary Care Provider [phone]- [phone] Reason for Visit * Auth/Cert (Routine) Specialty Diagnoses / Procedures Referred By Contac t Referred To Contact Diagnoses Longstanding persistent atrial fibrillation persistent atrial fibrillation Procedures PRO CARDIOVERSION ELECTIVE ARRHYTHMIA EXTERNAL CARDIOVERSION-ELECTIVE (WRVU 2) Sohail Gutierrez MD [facility] [place] [place] [address] [facility] Referral ID Status Reason Start Date Expiration Date Visits Re quested Visits Authorized [id number] 1 1 Encounter Details Date Type Department Care Team (Late st Contact Info) Description 03/21/2024 12:45 PM EST - 03/21/2024 1:15 PM EST Surgery [place] [address] Denzel Moreno MD [facility] [place] [place] [address] CARDIOVERSION-ELECTIVE (WRVU 2) Social History Tobacco Use Types Packs/Day Years Used Date Smoking Tobacco: Never Smokeless Tobacco: Never Alcohol Use Standard Drinks/Week Comments Not Currently 0 (1 standard drink = 0.6 oz pur e alcohol) [facility] Inpatient Questions Answer Date Recorded Does Anyone [...] the adhesive pads were placed, call the [facility] radiologic electronic specialist at . We will schedule a follow-up appointment with the [facility] here, or you will be scheduled to see your local doctor soon. Any specific instructions that apply to you will be given to you prior to discharge from the hospital. If you have any questions about this procedure, call: Cardiology Department [facility] Wednesday through Wednesday After hours and weekends 8:00 a.m. to 4:30 p.m. Ask for Cardiology Resident Life Insurance Specialist documented in this encounter Medications at Time [...] Operative Note Patient Name: Allie Dunaway : [id number] MR#: [id number] Case Date: 03/21/2024 Surgeon: Surgeons and Role: [...] entire procedure. Denzel Moreno MD 03/21/24 Cardiac Pre K Teacher [facility] * Op Note - Denzel Moreno MD [...] Follow up with ERICK Ray MD Cardiac Pre K Teacher 03/21/24 documented in this encounter Plan of Treatment Upcoming Encounters Date Type Department Care Team (Latest Contact Info) Description 07/31/2024 7:30 AM EDT Hospital Encounter [place] [address] Denzel Moreno MD [facility] [place] [place] [address] Persistent atrial fibrillation 07/31/2024 10:30 AM EDT - 07/31/2024 3:00 PM EDT Surgery [place] [address] Denzel Moreno MD [facility] [place] [place] [address] ELECTROPHYSIOLOGY PROCEDURE Scheduled Procedures Name Priority Associated Diagnoses Date/Ti me ELECTROPHYSIOLOGIC EVALUATIO N WITH TRANSSEPTAL CATHETERIZATIONS; INSERTION AND REPOSITIONING OF MULTIPLE ELECTRODE CATHETERS (WRVU 17) Persistent atrial fibrillation 07/31/2024 10:30 AM EDT documented as of this encounter Procedures Procedure Name Priority Date/Time Associated Diagnosis Comments Cardioversion Elective Arrhythmia External (85089) 03/21/2024 12:46 PM EST Longstanding persistent atrial [...] fibrillation documented in this encounter Care Teams Revenue Accountant Relationship Specialty Start Date End Date Haley Leyva APRN [address] [place] [id number] PCP - General Family Medicine 03/21/24 documented as of this encounter
--- OUTSIDE RECORDS SUMMARY | 2024-06-07 13:13 | XMS_ITS | Encounter Summary ---
Author Organization [facility] [place] [address] Care Team Providers Care Wire Winding Machine Operator Name Role Phone SinsharaJanaHaley Bishop COHEN Primary Care Provider [phone]- [phone] Reason for Visit * Auth/Cert (Routine) Specialty Diagnoses / Procedures Referred By Contac t Referred To Contact Diagnoses Longstanding persistent atrial fibrillation persistent atrial fibrillation Procedures PRO CARDIOVERSION ELECTIVE ARRHYTHMIA EXTERNAL CARDIOVERSION-ELECTIVE (WRVU 2) Sohail Gutierrez MD [facility] [place] [address] [facility] Referral ID Status Reason Start Date Expiration Date Visits Re quested Visits Authorized [id number] 1 1 Encounter Details Date Type Department Care Team (Late st Contact Info) Description 03/21/2024 11:00 AM EST Office Visit Cardiology at [address] [address] Pasquale Cai PA [facility] [place] [address] Persistent atrial fibrillation Social History Tobacco Use Types Packs/Day Years Used Date Smoking Tobacco: Never Smokeless Tobacco: Never Alcohol Use Standard Drinks/Week Comments Not Currently 0 (1 standard drink = 0.6 oz pur e alcohol) [facility] Inpatient Questions Answer Date Recorded Does Anyone [...] in the past by Dr. Spencer in [place], [place] and underwent a previous cardioversion last [...] Froylan Moreno MD EP Consult positional pager #[phone](EPMD) EP Device interrogation positional pager # [phone] documented in this encounter Plan of Treatment Upcoming Encounters Date Type Department Care Team (Latest Contact Info) Description 07/31/2024 7:30 AM EDT Hospital Encounter [place] [address] Denzel Moreno MD [facility] [place] [address] Persistent atrial fibrillation 07/31/2024 10:30 AM EDT - 07/31/2024 3:00 PM EDT Surgery [place] [phone] Denzel Moreno MD [facility] [place] [address] ELECTROPHYSIOLOGY PROCEDURE Scheduled Procedures Name Priority Associated [...] (Bezet) 466 ms MUSE SYSTEM Calculated R [place] 7 degrees MUSE SYSTEM Calculated T [place] 34 degrees MUSE SYSTEM INTERPRETATION Atrial fibrillation Abnormal ECG When compared with ECG of 24-NOV-2023 15:42, No significant change was found Confirmed by MD Sam, Manuel ([id number]) on 03/21/2024 5:13:12 PM MUSE SYSTEM 03/21/2024 10:5 0 AM EST 03/21/2024 5:13 PM EST Denzel Moreno MD ECG ORDERABLES [employer] [facility] documented in this encounter Visit Diagnoses Diagnosis Persistent atrial fibrillation Atrial fibrillation Persistent atrial fibrillation Atrial fibrillation Persistent atrial fibrillation Atrial fibrillation documented in this encounter Care Teams Wire Winding Machine Operator Relationship Specialty Start Date End Date Haley Leyva APRN [address] [place] [id number] PCP - General Family Medicine 03/21/24 documented as of this encounter
[2024-06-07 20:11] LABS: Abs Immature Grans 0.02 10^3/uL (0.0-0.06); Absolute Basophil Count 0.08 10^3/uL (0.0-0.2); Absolute Eosinophil Count 0.24 10^3/uL (0.0-0.7); Absolute Lymphocyte Count 0.95 10^3/uL (1.2-3.4); Absolute Neutrophil Count 3.65 10^3/uL (1.2-6.7); Basophils % 1.5 %; Eosinophils % 4.4 %; HCT 45.6 % (36.0-46.0); HGB 15.3 g/dL (11.2-15.7); Immature Grans % 0.4 %; Lymphocytes % 17.5 %; MCH 31.3 pg (27.0-33.0); MCHC 33.6 % (32.0-36.0); MCV 93 fL (80-95); MPV 10.1 fL (8.0-11.0); Monocytes % 9.2 %; Platelet Count 213 10^3/uL (130-400); RBC 4.89 10^6/uL (3.93-5.22); RDW 12.7 % (11.7-14.6); RDW-SD 43.8 fL; WBC 5.44 10^3/uL (4.4-10.8)
[2024-06-07 20:24] LABS: Anion Gap 9.1 mmol/L (3-11); BUN 19 mg/dL (7-18); CO2 28.9 mmol/L (21.0-32.0); CREATININE 1.2 mg/dL (0.55-1.02); Calcium 9.6 mg/dL (8.5-10.1); Chloride 107 mmol/L (98-107); Glucose 85 mg/dL (74-106); Potassium 4.3 mmol/L (3.5-5.1); Sodium 145 mmol/L (136-145)
[2024-06-07 20:30] LABS: Bilirubin Negative (Negative); Blood Negative (Negative); Clarity Clear (Clear); Glucose Negative (Negative); Ketones Negative (Negative); Leukocyte Esterase Negative (Negative); Nitrite Negative (Negative); Urobilinogen 0.2 mg/dL (Up to 0.2); pH 6.5 (5-8)
[2024-06-07 20:41] LABS: COMMENT (LAB VIEW ONLY) 19.36 mg/dL; Microalb ug/mg Crea 7.2 ug/mg Cr
[2024-06-07 21:01] LABS: COMMENT (LAB VIEW ONLY) 20.82 mg/dL
[2024-06-07 21:04] LABS: PROTEIN < 6.0 mg/dL
[2024-06-09 14:32] LABS: Albumin, Urine % 18.6 %; Albumin, Urine mg/dL 2 mg/dL; Globulins, Urine % 81.4 %; Globulins, Urine mg/dL 11 mg/dL; Immunotyping, Urine (See Note); Total Protein Urine 13 mg/dL (See Note)
== END 2024-06-07 13:11 | disposition home or self-care (01) ==
LOC: NCHCN 13:10
PROVIDERS: PCP Physician Assistant; Visit Provider Physician Assistant
DX: R79.89 Other specified abnormal findings of blood chemistry (principal)
CPT/HCPCS: 80048; 84156; 84166; 86335; 81003; 82043; 82565; 82570; 85025

== ENCOUNTER 2025-05-01 10:44 | Outpatient (REF) | payer MEDICARE, OTHER, SELFPAY ==
[2025-05-01 19:50] LABS: HCT 41.4 % (36.0-46.0); HGB 13.6 g/dL (11.2-15.7); MCH 30.9 pg (27.0-33.0); MCHC 32.9 % (32.0-36.0); MCV 94 fL (80-95); MPV 10.3 fL (8.0-11.0); Platelet Count 200 10^3/uL (130-400); RBC 4.40 10^6/uL (3.93-5.22); RDW 12.6 % (11.7-14.6); RDW-SD 43.7 fL; WBC 4.02 10^3/uL (4.4-10.8)
[2025-05-01 20:09] LABS: ALT 17 U/L (10-49); AST 26 U/L (<34); Albumin 4.2 g/dL (3.2-5.0); Alkaline Phosphatase 54 U/L (46-116); Anion Gap 7.4 mmol/L (3-11); BUN 20 mg/dL (9-23); Bilirubin, Total 0.5 mg/dL (0.2-1.2); CO2 29.6 mmol/L (20.0-31.0); Calcium 9.1 mg/dL (8.3-10.6); Chloride 107 mmol/L (98-107); Glucose 94 mg/dL (74-106); Potassium 4.6 mmol/L (3.5-5.1); Sodium 144 mmol/L (136-145); Total Protein 7.3 g/dL (5.7-8.2)
== END 2025-05-01 10:45 | disposition home or self-care (01) ==
LOC: NCHCN 10:44
PROVIDERS: PCP Physician Assistant; Visit Provider Physician Assistant
DX: R79.89 Other specified abnormal findings of blood chemistry (principal)
CPT/HCPCS: 80053; 85027